=== PATIENT | male | born 1950 | race American Indian/Alaskan Native ===

== ENCOUNTER → 2019-12-14 14:42 | Outpatient (BNVA) | payer MEDICARE, SELFPAY | PROVIDERS: Family Provider Nurse Practitioner; PCP Nurse Practitioner; Visit Provider Nurse Practitioner Family | DX: R33.9 Retention of urine, unspecified (principal); R30.0 Dysuria; R31.0 Gross hematuria | CPT/HCPCS: 81001 ==

== ENCOUNTER → 2019-12-25 15:16 | Outpatient (BNVA) | payer MEDICARE, SELFPAY | PROVIDERS: Family Provider Nurse Practitioner; PCP Nurse Practitioner; Visit Provider Family Medicine | DX: E11.9 Type 2 diabetes mellitus without complications (principal); E78.00 Pure hypercholesterolemia, unspecified; N40.1 Benign prostatic hyperplasia with lower urinary tract symptoms; N13.8 Other obstructive and reflux uropathy; E11.649 Type 2 diabetes mellitus with hypoglycemia without coma; K21.9 Gastro-esophageal reflux disease without esophagitis; J41.0 Simple chronic bronchitis; Z68.27 Body mass index [BMI] 27.0-27.9, adult; F17.211 Nicotine dependence, cigarettes, in remission; E11.42 Type 2 diabetes mellitus with diabetic polyneuropathy | CPT/HCPCS: 80053; 80061; 83036 ==

== ENCOUNTER → 2019-12-28 12:47 | Outpatient (BNVA) | payer MEDICARE, SELFPAY | PROVIDERS: Family Provider Nurse Practitioner; PCP Nurse Practitioner; Visit Provider Family Medicine | DX: J41.0 Simple chronic bronchitis (principal) | CPT/HCPCS: 80048 ==

== ENCOUNTER 2020-02-08 12:28 | Outpatient (CLI) | payer MEDICARE, SELFPAY ==
--- NOTE | 2020-02-08 12:40 | CT_ITS ---
WS: [id number] LDCT LUNG CANCER SCREENING HISTORY: HX OF TOBACCO USE TECHNIQUE: Axial imaging performed from the apices to 1 cm below the costophrenic angles. Coronal and sagittal reformats are submitted with axial MIP series. All CT scans at [facility] use at least one of these dose optimization techniques: automated exposure control; mA and/or kV adjustment per patient size (includes targeted exams where dose is matched to clinical indication); or iterativ e reconstruction. DLP: 50.34 mGy.cm DIvol: 1.51 mGy COMPARISON: None available. Diagnostic quality: Satisfactory Lung Nodules: 4 mm solid nodule LEFT lower lobe adjacent to the diaphragm, image 170 of series 3. No additional nodules are identified. No groundglass attenuation or endobronchial lesions. Lungs: Emphysema. Heart: Normal size heart. Other findings: Mild atherosclerosis aorta. Mild coronary artery atherosclerosis. CT/CT lung screening [id number] IMPRESSION: LUNG-RADS: 2-Benign Appearance or Behavior FOLLOW UP: 12 Month: Continue annual screening with LDCT OTHER FINDINGS (S MODIFIER): None.
== END 2020-02-08 12:29 | disposition home or self-care (01) ==
LOC: CT 12:31
PROVIDERS: PCP Family Medicine; Visit Provider Internal Medicine Critical Care Medicine
DX: Z12.2 Encounter for screening for malignant neoplasm of respiratory organs (principal); Z87.891 Personal history of nicotine dependence; I70.0 Atherosclerosis of aorta; I25.10 Atherosclerotic heart disease of native coronary artery without angina pectoris
CPT/HCPCS: G0297

== ENCOUNTER → 2020-02-19 14:46 | Outpatient (BNVA) | payer MEDICARE, SELFPAY | PROVIDERS: Family Provider Nurse Practitioner; PCP Orthopaedic Surgery; Visit Provider Internal Medicine Critical Care Medicine | DX: Z20.828 Contact with and (suspected) exposure to other viral communicable diseases (principal) | CPT/HCPCS: 87635 ==

== ENCOUNTER 2020-02-21 12:06 | Outpatient (CLI) | payer MEDICARE, SELFPAY ==
--- NOTE | 2020-02-21 12:45 | USCV_ITS ---
Kali Castro Age: 69 Gender: M : 1950 Exam Date: 02/21/2020 12:59 Ordering Phys: Flora Stearns MD Technologist: Krystal Cobb Exam Location: [facility] Indication: SOB BP: / HR: 76 Rhythm: Sinus Technical Quality: Adequate MEASUREMENTS (Male / Female) Normal Values 2D ECHO LV Diastolic Diameter PLAX 4.6 cm 4.2 - 5.9 / 3.9 - 5.3 cm LV Systolic Diameter PLAX 3.3 cm IVS Diastolic Thickness 0.9 cm 0.6 - 1.0 / 0.6 - 0.9 cm IVS Systolic Thickness 1.4 cm LVPW Diastolic Thickness 1.0 cm 0.6 - 1.0 / 0.6 - 0.9 cm LVPW Systolic Thickness 1.7 cm LVOT Diameter 2.0 cm LV Ejection Fraction 2D Teich 56.8 % LV Ejection Fraction MOD 2C 73.2 % LV Ejection Fraction 2C AL 72.1 % LA Diameter 2.5 cm LA Width 3.0 cm LA Height 4.9 cm RA Width 3.7 cm RA Height 3.8 cm M-MODE LV Diastolic Diameter MM 5.0 cm 4.2 - 5.9 / 3.9 - 5.3 cm LV Systolic Diameter MM 3.5 cm LV Ejection Fraction MM Teich 57.0 % IVS Diastolic Thickness MM 0.6 cm 0.6 - 1.0 / 0.6 - 0.9 cm IVS Systolic Thickness MM 0.9 cm LVPW Diastolic Thickness MM 0.9 cm 0.6 - 1.0 / 0.6 - 0.9 cm LVPW Systolic Thickness MM 1.4 cm Aortic Annulus Diameter 2.9 cm LA Ao Ratio MM 0.8 MV E Point Septal Separation 1.3 cm DOPPLER AV Peak Velocity 126.0 cm/s LVOT Peak Velocity 85.0 cm/s AV Area Cont Eq vti 2.5 cm squared AV Area Cont Eq pk 2.2 cm squared MV Peak Velocity 85.0 cm/s MV Area PHT 4.9 cm squared Mitral E to A Ratio 0.9 MV E' Velocity 39.0 cm/s Mitral E to MV E' Ratio 10.9 Mitral E to LV E' Lateral Ratio 9.6 Mitral E to LV E' Septal Ratio 12.9 TR Peak Velocity 55.3 cm/s TR Peak Gradient 1.2 mmHg Right Atrial Pressure 3.0 mmHg Pulmonary Artery Systolic Pressu 4.2 mmHg PV Peak Velocity 144.7 cm/s RV Acceleration Time 0.1 s FINDINGS Left Ventricle Normal left ventricular size, systolic function and wall thickness, with no regional wall motion abnormalities. LVEF is 55 to 60%. Normal left ventricular wall thickness. Grade 1 diastolic dysfunction is noted. Filling pressures are normal. Right Ventricle The right ventricle is normal in size and function. Right Atrium The right atrium is normal in size. Left Atrium The left atrium is normal in size. Mitral Valve Structurally normal mitral valve without significant stenosis or prolapse. There is no mitral regurgitation. Aortic Valve Structurally normal aortic valve without significant sclerosis or stenosis. There is no aortic regurgitation. Tricuspid Valve Structurally normal tricuspid valve without significant stenosis or regurgitation. Insufficient TR jet to calculate RVSP. RA pressure is normal. Pulmonic Valve Structurally normal pulmonic valve without significant stenosis. There is no pulmonic regurgitation. Pericardium Normal pericardium without effusion. Aorta Normal ascending aorta dimension. CONCLUSIONS LV systolic function is normal with EF of 55 to 60%. Grade 1 diastolic dysfunction is noted. No significant valvular heart disease is noted. No comparison studies are available. Miah Armijo MD (Electronically Signed) Final Date: 04 March 2020 10:35 S
--- NOTE | 2020-02-21 14:23 | PFTS_ITS ---
Date of Study:02/21/20 Date of Dictation: MECHANICS: Forced vital capacity (FVC) is normal. Forced expiratory volume in one second (FEV1) is normal. FEV1/FVC is normal. FLOW VOLUME LOOP: Normal. LUNG VOLUMES: Total lung capacity (TLC) is normal. Residual volume (RV) is normal. DIFFUSING CAPACITY FOR CARBON MONOXIDE: Normal. INTERPRETATION: The pulmonary function tests are normal. Lung volumes are normal. Gas exchange (DLCO) is . MTDD
== END 2020-02-21 12:07 | disposition home or self-care (01) ==
LOC: RAD 12:07
PROVIDERS: Family Provider Nurse Practitioner; PCP Orthopaedic Surgery; Visit Provider Internal Medicine Critical Care Medicine
DX: R06.02 Shortness of breath (principal)
CPT/HCPCS: 93306; 94010; 94726; 94729

== ENCOUNTER → 2020-05-16 12:53 | Outpatient (BNVA) | payer MEDICARE, SELFPAY | PROVIDERS: Family Provider Nurse Practitioner; PCP Orthopaedic Surgery; Visit Provider Family Medicine | DX: K52.9 Noninfective gastroenteritis and colitis, unspecified (principal) | CPT/HCPCS: 80053; 85025 ==

== ENCOUNTER → 2020-06-06 14:26 | Outpatient (BNVA) | payer MEDICARE, SELFPAY | PROVIDERS: Family Provider Nurse Practitioner; PCP Orthopaedic Surgery; Visit Provider Surgery | DX: Z11.59 Encounter for screening for other viral diseases (principal) | CPT/HCPCS: 87635 ==

== ENCOUNTER 2020-06-11 07:47 | Day surgery (SDC) | payer MEDICARE, SELFPAY ==
[2020-06-07 12:59] VITALS: BMI 27.3
[2020-06-11 08:05] VITALS: BP 122/75; PULSE 82; RESP 16; TEMP 36.1; O2SAT 100
--- NOTE | 2020-06-11 08:25 | ANES.PREANE2 ---
Pre-Anesthetic Assessment Pre-Anesthetic Assessment: Height/Weight: Height 1.73 m Weight 81.647 kg Temp Pulse Resp BP Pulse Ox 97 F L 82 16 122/75 100 06/11/20 08:05 06/11/20 08:05 06/11/20 08:05 06/11/20 08:05 06/11/20 08:05 Preop Diagnosis: diarrhea Proposed Procedure: Operation Date: 06/11/20 09:00 Proposed Procedures p Colonoscopy 93071 K52.9(Not Applicable) - Donavon Bedoya MD Familial anesthetic complications: None Was Beta Summer taken within 24 hours: N/A Last intake: Intake Last Liquid Date 06/09/20 Last Liquid Time 23:00 Last Solid Date 06/09/20 Last Solid Time 17:00 Social: Social History: No alcohol and No tobacco Exam: Pre-Anes Outpt Exam: alert, oriented x 3, clear to auscultation bilaterally and regular rate & rhythm Airway: Cervical ROM: WNL MP: 3 Dentition: False GI: GI: GERD Metabolic: Metabolic: DM and Hyperlipidemia Neuropsych: Comments: parkinson's disease _took cardidopa/levodopa this morning Anesthetic Plan: ASA status: 2 Anesthesia: MAC Risk of > 500 ml blood loss (7ml/kg in children): No PFSH Anesthesia PFSH: Medical History (Updated 05/21/20 @ 20:51 by Donavon Bedoya MD) BPH with obstruction/lower urinary tract symptoms Chronic diarrhea Chronic GERD Hypercholesteremia Neuropathy Parkinson disease Type 2 diabetes mellitus Urinary retention Surgical History (Updated 05/21/20 @ 16:20 by Donavon Bedoya MD) Hx of cholecystectomy Status post colonoscopy Family History Mother Congestive heart failure Social History Smoking and tobacco status: former smoker Quit status (tobacco): has quit using tobacco Year quit tobacco: 2017 - PPD x 50 Years Second hand smoke exposure: No Alcohol intake: never Lives independently: Yes Household members: spouse Marital status: Current occupational status: retired History of recent travel: No Current gender identity: Male Data Anesthesia Cardiac Studies: No Data to Display
[2020-06-11 08:27] LABS: Glucose Point of Care 112 mg/dL (70-110)
[2020-06-11] MEDS: sodium chloride 0.9% 1,000 ML 30 ML IV (08:38)
--- NOTE | 2020-06-11 09:50 | W.PM.OPSUD ---
Surgery/Procedure H&P Update DATE OF PROCEDURE: June 11, 2020 DATE H&P PERFORMED: 05/21/20 H&P UPDATE INFORMATION: I have reviewed H&P completed within last 30 days, I have examined patient prior to procedure and No changes to prior documentation PREOP DIAGNOSIS: diarrhea PLANNED PROCEDURE: Operation Date: 06/11/20 09:00 Proposed Procedures p Colonoscopy 73545 K52.9(Not Applicable) - Donavon Bedoya MD
[2020-06-11 10:09] VITALS: BP 103/70; PULSE 75; RESP 16; TEMP 36.1; O2SAT 97
[2020-06-11 10:31] VITALS: BP 139/85; PULSE 76; RESP 16; O2SAT 100
--- NOTE | 2020-06-11 14:31 | ANE.PACU2 ---
Inpatient post-anesthesia follow up: Airway intact: Yes Vital signs: Temperature 97 F Pulse Rate 76 Respiratory Rate 16 Blood Pressure 139/85 Pulse Oximetry 100 Oxygen Delivery Me thod Nasal Cannula Oxygen Flow Rate 3 Fraction of Inspir ed Oxygen Hydration adequate: Yes Nausea and vomiting: No Pain level: 1 Mental status: Baseline
== END 2020-06-11 11:00 | disposition home or self-care (01) ==
PROVIDERS: PCP Orthopaedic Surgery; Visit Provider Surgery
PROC: 0DJD8ZZ Inspection of Lower Intestinal Tract, Via Natural or Artificial Opening Endoscopic (ICD-10-PCS; CPT 45378; principal; 2020-06-11 09:00)
DX: R19.7 Diarrhea, unspecified (principal); K21.9 Gastro-esophageal reflux disease without esophagitis; E11.9 Type 2 diabetes mellitus without complications; E78.5 Hyperlipidemia, unspecified; G20 Parkinson's disease; N40.1 Benign prostatic hyperplasia with lower urinary tract symptoms; N13.8 Other obstructive and reflux uropathy; Z87.891 Personal history of nicotine dependence
CPT/HCPCS: 12345; 36416; 45330; 82274; 82962; 83630; 87493; 87506; J2704; J7030

== ENCOUNTER → 2020-08-01 14:31 | Outpatient (BNVA) | payer MEDICARE, SELFPAY | PROVIDERS: PCP Orthopaedic Surgery; Visit Provider Surgery | DX: K52.9 Noninfective gastroenteritis and colitis, unspecified (principal); Z20.822 Contact with and (suspected) exposure to COVID-19 | CPT/HCPCS: 87635 ==

== ENCOUNTER 2020-08-13 06:42 | Day surgery (SDC) | payer MEDICARE, SELFPAY ==
[2020-08-09 14:15] VITALS: BMI 26.6
[2020-08-13 06:55] VITALS: BP 125/83; PULSE 77; RESP 16; TEMP 36.6; O2SAT 96
[2020-08-13] MEDS: sodium chloride 0.9% 1,000 ML 30 ML IV (07:25)
[2020-08-13 07:27] LABS: Glucose Point of Care 123 mg/dL (70-110)
--- NOTE | 2020-08-13 07:31 | ANES.PREANE2 ---
Pre-Anesthetic Assessment Pre-Anesthetic Assessment: Height/Weight: Height 1.73 m Weight 79.379 kg Temp Pulse Resp BP Pulse Ox 98 F 77 16 125/83 96 08/13/20 06:55 08/13/20 06:55 08/13/20 06:55 08/13/20 06:55 08/13/20 06:55 Preop Diagnosis: screening colonoscopy Proposed Procedure: Operation Date: 08/13/20 08:00 Proposed Procedures p Colonoscopy 89438 k52.9(Not Applicable) - Donavon Bedoya MD Was Beta Summer taken within 24 hours: N/A Was Clonidine taken within 24 hours: N/A Last intake: Intake Last Liquid Date 08/12/20 Last Liquid Time 23:30 Last Solid Date 08/11/20 Last Solid Time 18:00 Last Intake: 23:30 Social: Social History: No tobacco Pack years: 50 Comment: Quit 2016 Exam: Pre-Anes Outpt Exam: alert, oriented x 3, clear to auscultation bilaterally and regular rate & rhythm Airway: Submandibular: WNL Cervical ROM: WNL MP: 1 Additional comments: upper dentition History/ROS: No significant history except as noted Pulmonary: Pulmonary: None reported GI: GI: GERD (controlled) Metabolic: Metabolic: DM Neuropsych: Comments: parkinsons Anesthetic Plan: ASA status: 3 Anesthesia: Anesthesia Evaluation and MAC Risk of > 500 ml blood loss (7ml/kg in children): No Meds/Allergies Current Medications: Current Medications Generic Name Dose Route Start Last Admin Trade Name Freq PRN Reason Stop Dose Admin Sodium Chloride 1,000 mls @ 30 ml s/hr 08/13/20 07:00 08/13/20 07:25 Sodium Chloride 0.9% IV 08/14/20 06:59 30 mls/hr .Q24H HADLEY Administration PFSH Anesthesia PFSH: Medical History (Updated 07/10/20 @ 10:25 by Donavon Bedoya MD) BPH with obstruction/lower urinary tract symptoms C. difficile diarrhea Chronic diarrhea Chronic GERD Hypercholesteremia Neuropathy Parkinson disease Type 2 diabetes mellitus Urinary retention Surgical History Hx of cholecystectomy Hx of sigmoidoscopy (06/11/20) incomplete due to poor prep Status post colonoscopy Family History Mother Congestive heart failure Social History Smoking and tobacco status: former smoker Quit status (tobacco): has quit using tobacco Year quit tobacco: 2017 - PPD x 50 Years Second hand smoke exposure: No Alcohol intake: never Lives independently: Yes Household members: spouse Marital status: Current occupational status: retired History of recent travel: No Current gender identity: Male Data Anesthesia Other Labs: Laboratory Results - last 48 hr 08/13/20 07:20 POC Glucose 123 H Cardiac Studies: No Data to Display
--- NOTE | 2020-08-13 07:50 | W.PM.OPSFHP ---
Same Day Surgery H&P Indication for Procedure/HPI DATE OF PROCEDURE: August 13, 2020 CHIEF COMPLAINT/INDICATIONFOR SURGICAL PROCEDURE: history of c diff, screening PREOP DIAGNOSIS: screening colonoscopy PLANNED PROCEDRUE: Operation Date: 08/13/20 08:00 Proposed Procedures p Colonoscopy 32625 k52.9(Not Applicable) - Donavon Bedoya MD Medications/Allergies* Home Medications Medication Instructions Recorded Confirmed Type carbidopa 25 mg-levodopa 100 mg 1 tab PO 5XD 10/31/19 08/09/20 History tablet melatonin 5 mg capsule 5 mg PO QPM 10/31/19 08/09/20 History ropinirole 5 mg tablet 5 mg PO TID 10/31/19 08/09/20 History amantadine HCl 100 mg capsule 100 mg PO BID 05/16/20 08/09/20 History gabapentin 600 mg tablet 600 mg PO BID tab 05/16/20 08/09/20 History quetiapine 25 mg tablet 25 mg PO QPM 05/16/20 08/09/20 History finasteride 5 mg tablet 5 mg PO DAILY 07/09/20 08/09/20 History Allergies/Adverse Reactions Allergy/AdvReac Type Severity Reaction Status Date / Time No Known Allergies Allergy Verified 07/09/20 12:59 Current Medications: Generic Name Dose Route Start Last Admin Trade Name Freq PRN Reason Stop Dose Admin Sodium Chloride 1,000 mls @ 30 mls/hr 08/13/20 07:00 08/13/20 07:25 Sodium Chloride 0.9% IV 08/14/20 06:59 30 mls/hr .Q24H HADLEY Administration Pertinent History/Comorbid Conditions* Medical History (Updated 07/10/20 @ 10:25 by Donavon Bedoya MD) BPH with obstruction/lower urinary tract symptoms C. difficile diarrhea Chronic diarrhea Chronic GERD Hypercholesteremia Neuropathy Parkinson disease Type 2 diabetes mellitus Urinary retention Surgical History (Updated 06/11/20 @ 10:49 by Donavon Bedoya MD) Hx of cholecystectomy Hx of sigmoidoscopy (06/11/20) incomplete due to poor prep Status post colonoscopy Family History (Updated 10/27/19 @ 16:16 by ROBERT Felton) Congestive heart failure Mother Social History Smoking and tobacco status: former smoker Quit status (tobacco): has quit using tobacco Year quit tobacco: 2016 - PPD x 50 Years Second hand smoke exposure: No Alcohol intake: never Lives independently: Yes Household members: spouse Marital status: Current occupational status: retired History of recent travel: No Current gender identity: Male Pertinent Exam Findings alert, oriented x 3 and regular rate & rhythm Recommendations Surgery/Procedure today Coding Level of Care Code 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
[2020-08-13 08:29] VITALS: BP 93/70; PULSE 70; RESP 16; TEMP 36.1; O2SAT 96
[2020-08-13 08:44] VITALS: BP 143/74; PULSE 70; RESP 18; TEMP 36.5; O2SAT 99
--- NOTE | 2020-08-13 12:24 | ANE.PACU2 ---
Inpatient post-anesthesia follow up: Airway intact: Yes Vital signs: Temperature 97.7 F Pulse Rate 70 Respiratory Rate 18 Blood Pressure 143/74 Pulse Oximetry 99 Oxygen Delivery Me thod Room Air Oxygen Flow Rate 5 Fraction of Inspir ed Oxygen Hydration adequate: Yes Nausea and vomiting: No Pain level: 1 Mental status: Baseline
== END 2020-08-13 09:20 | disposition home or self-care (01) ==
PROVIDERS: PCP Orthopaedic Surgery; Visit Provider Surgery
PROC: 0DJD8ZZ Inspection of Lower Intestinal Tract, Via Natural or Artificial Opening Endoscopic (ICD-10-PCS; CPT 45378; principal; 2020-08-13 08:00)
DX: Z12.11 Encounter for screening for malignant neoplasm of colon (principal); K64.8 Other hemorrhoids; K57.30 Diverticulosis of large intestine without perforation or abscess without bleeding; N40.1 Benign prostatic hyperplasia with lower urinary tract symptoms; N13.8 Other obstructive and reflux uropathy; G20 Parkinson's disease; K21.9 Gastro-esophageal reflux disease without esophagitis; E11.9 Type 2 diabetes mellitus without complications; Z87.891 Personal history of nicotine dependence
CPT/HCPCS: 45378; 36416; 82962; 96360; 96361; J2704; J7030

== ENCOUNTER → 2020-11-27 16:19 | Outpatient (BNVA) | payer MEDICARE, SELFPAY | PROVIDERS: PCP Family Medicine; Visit Provider Urology | DX: N39.0 Urinary tract infection, site not specified (principal); Z86.19 Personal history of other infectious and parasitic diseases | CPT/HCPCS: 81003; 87077; 87086 ==

== ENCOUNTER → 2020-12-12 16:17 | Outpatient (BNVA) | payer MEDICARE, SELFPAY | PROVIDERS: PCP Family Medicine; Visit Provider Nurse Practitioner Family | DX: N39.0 Urinary tract infection, site not specified (principal) | CPT/HCPCS: 87077; 87086 ==

== ENCOUNTER → 2021-03-06 13:34 | Outpatient (BNVA) | payer MEDICARE, SELFPAY | PROVIDERS: PCP Family Medicine; Visit Provider Nurse Practitioner Family | DX: N39.0 Urinary tract infection, site not specified (principal) | CPT/HCPCS: 81003 ==

== ENCOUNTER → 2021-03-07 11:55 | Outpatient (BNVA) | payer MEDICARE, SELFPAY | PROVIDERS: PCP Family Medicine; Visit Provider Nurse Practitioner Family | DX: N39.0 Urinary tract infection, site not specified (principal) | CPT/HCPCS: 87086 ==

== ENCOUNTER 2021-06-26 10:56 | Emergency (ER) | payer MEDICARE, SELFPAY ==
[2021-06-26 11:01] VITALS: BP 193/66; PULSE 86; RESP 18; TEMP 36.6; O2SAT 96; BMI 25.8
--- NOTE | 2021-06-26 11:18 | W.ED.BACK ---
HPI - Back Pain/Injury General: Chief Complaint: Back Pain/Injury Stated Complaint: L BACK/LEG PAIN X 2 WKS Time Seen by Provider: 06/26/21 11:08 History of Present Illness: Patient presents to the ER via ambulance with complaints of worsening sciatica. Patient states he was placed on oxycodone by Dr. Hameed and he said it helped at first but the effectiveness has waned and his left leg is hurting again. Pain originally occurred after working the yard and with certain movement cause discomfort in his back he says it hurts to get out of a chair or sit down to roll over in bed. Pain radiates from his back down to about ankle area. Denies any other problems. Does have history of Parkinson's. Associated symptoms: Deny abdominal pain, chills, fever(s), nausea or vomiting Review of Systems Const: Denies: fever(s), chills or body aches Eyes: Denies: eye discomfort ENMT: Denies: throat pain Card: Denies: chest pain Resp: Denies: dyspnea GI: Denies: abdominal pain, nausea or vomiting Musc: Reports: back pain (Seen recently in Dr. Hameed's office and assessed and treated with oxycodone) Skin/Breast: Denies: rash Neuro: Denies: headache(s) Psych: Denies: depression or suicidal ideation PFS ED PFSH: Medical History BPH with obstruction/lower urinary tract symptoms C. difficile diarrhea Chronic diarrhea Chronic GERD Hypercholesteremia Neuropathy Parkinson disease Type 2 diabetes mellitus Urinary retention Surgical History Hx of cholecystectomy Hx of sigmoidoscopy (06/11/20) incomplete due to poor prep Status post colonoscopy (08/13/20) diverticulosis Family History Mother Congestive heart failure Social History Smoking and tobacco status: former smoker Quit status (tobacco): has quit using tobacco Year quit tobacco: 2017 - PPD x 50 Years Second hand smoke exposure: No Alcohol intake: never Lives independently: Yes Household members: spouse Marital status: Current occupational status: retired History of recent travel: No Current gender identity: Male Physical Exam Const: COMMON NORMALS: no acute distress, patient oriented x3 and alert HENMT: COMMON NORMALS: normocephalic HEAD & SCALP: normocephalic Eye: COMMON NORMALS: EOMs intact bilaterally Neck/C-Spine: COMMON NORMALS: no JVD Resp: COMMON NORMALS: normal respiratory effort and No use of accessory muscles Cardio: COMMON NORMALS: no JVD GI: INSPECTION: Yes normal to inspection Back/Pelvis: OTHER: Patient has marked tenderness along sciatic nerve across the thigh behind the calf left leg. Patient does have pain with standing. Patient does have pain in the buttock left side. Skin temperature, pulse are all normal. Extremity: COMMON NORMALS: normal to inspection and full ROM Neuro: COMMON NORMALS: patient oriented x3 SENSORIUM/ORIENTATION: Yes alert Psych: COMMON NORMALS: mental status grossly normal Skin: COMMON NORMALS: no rashes or lesions noted GENERAL SKIN EXAM: no rashes or lesions noted Course Vital Signs: Vital signs: Vital Signs Temperature 97.9 F 06/26/21 11:01 Pulse Rate 86 06/26/21 11:01 Respiratory Rate 18 06/26/21 11:01 Blood Pressure 193/66 06/26/21 11:01 Pulse Oximetry 96 06/26/21 11:01 MDM - Back Pain/Injury Medical Decision Making Left leg sciatica from lumbar stenosis. Patient to follow back up with Dr. Hameed for further imaging if steroids do not help. Reviewed Dr. Hameed's notes and he recommended corticosteroids if discomfort continued. Discharge Plan Discharge Patient Disposition: Home Clinical Impression: Sciatic leg pain Condition: Stable Prescriptions: New prednisone 20 mg tablet 20 mg PO DAILY Qty: 7 0RF Celebrex 100 mg capsule 200 mg PO BID Qty: 20 0RF No Action carbidopa-levodopa 25-100 mg tablet 1 tab PO 5XD 0RF melatonin 5 mg capsule 10 mg PO QPM 0RF ipratropium-albuterol 0.5 mg-3 mg(2.5 mg base)/3 mL solution for nebulization 3 ml inhalation Q4H PRN (Reason: wheezing) Qty: 180 6RF amantadine HCl 100 mg capsule 100 mg PO BID 0RF quetiapine 25 mg tablet 25 mg PO BID 0RF hydrocodone-acetaminophen 10-325 mg tablet 1 tab PO Q4H PRN (Reason: pain) 7 Days Qty: 35 0RF pravastatin 40 mg tablet 40 mg PO DAILY 0RF ropinirole 0.5 mg tablet 0.5 mg PO TID 0RF lactulose 10 gram/15 mL solution 15 ml PO BID PRN0RF Rx Instructions: For 7 days prior to Colonoscopy trazodone 50 mg tablet 50 mg PO DAILY 0RF finasteride 5 mg tablet See Rx Instructions .ROUTE .COMPLEX Qty: 90 3RF Dose Instruction: TAKE 1 TABLET DAILY Rx Instructions: TAKE 1 TABLET DAILY omeprazole 40 mg capsule,delayed release(DR/EC) 40 mg PO DAILY 90 Days Qty: 90 1RF gabapentin 600 mg tablet 600 mg PO BID 90 Days Qty: 180 1RF tamsulosin 0.4 mg capsule See Rx Instructions .ROUTE .COMPLEX Qty: 180 1RF Dose Instruction: TAKE 1 CAPSULE TWICE A DAY Rx Instructions: TAKE 1 CAPSULE TWICE A DAY Discharge Orders: Discharge ED (Routine); Ordered 06/26/21 Ordered By: Alex Valdez Referrals: Saadia Hameed MD [Primary Care Provider] - Discharge Diet: Usual diet Discharge Activity: Increase activity as tolerated Patient Instructions: Sciatica (ED), Lumbar Radiculopathy (ED) Activity Restrictions/Additional Instructions: Follow-up with medical provider as directed. Take medications as prescribed. Return to the ER or your medical provider if condition worsens. Please read and understand discharge instructions. If any questions ask please. Coding Level of Care Code ED Code Enforcement Inspector for Rashaad Fwd Exam Comprehensive
[2021-06-26] MEDS: methylPREDNISolone (DEPO) 80 MG/ML INJ 1 mL IM (11:23)
== END 2021-06-26 11:28 | disposition home or self-care (01) ==
PROVIDERS: Emergency Provider Nurse Practitioner Family; PCP Family Medicine
DX: M54.32 Sciatica, left side (principal); G20 Parkinson's disease; E11.40 Type 2 diabetes mellitus with diabetic neuropathy, unspecified; Z87.891 Personal history of nicotine dependence
CPT/HCPCS: 96372; 99283; 99291; 99292; J1040

== ENCOUNTER 2021-07-06 11:28 | Emergency (ER) | payer MEDICARE, SELFPAY ==
[2021-07-06 11:42] VITALS: BP 137/69; PULSE 82; RESP 14; TEMP 36.6; O2SAT 97; BMI 25.8
--- NOTE | 2021-07-06 12:35 | CTR_ITS ---
PROCEDURE INFORMATION: Exam: CT Pelvis Without Contrast; Skeletal Exam date and time: 07/06/2021 12:35 PM Age: 70 years old Clinical indication: Pelvic pain; Patient HX: C/O worsening chronic lbp into L pelvis/hip denies new injury TECHNIQUE: Imaging protocol: Computed tomography images of the pelvis without contrast. Exam focused on the skeletal structures. Radiation optimization: All CT scans at this facility use at least one of these dose optimization techniques: automated exposure control; mA and/or kV adjustment per patient size (includes targeted exams where dose is matched to clinical indication); or iterative reconstruction. COMPARISON: CT lumbar spine wo con* [id number] 07/06/2021 1:15 PM RADIATION DOSE METRICS: Total DLP (mGy-cm): 373.44 FINDINGS: Reproductive: The prostate is enlarged to a diameter of 6 cm. Aorta: The aorta and iliac arteries are calcified. No aneurysm. Bones/joints: Chronic degenerative changes are present in the lower lumbar spine with joint space narrowing, sclerosis and osteophytes. There is hypertrophy of the lower lumbar facet joints. There is mild degenerative joint space narrowing of the hips but otherwise the hip joints are unremarkable. No fracture, dislocation or other acute bone or joint abnormalities are seen. No destructive bony changes are present. Soft tissues: Unremarkable. CT/CT pelvis wo con [id number] IMPRESSION: 1. Chronic degenerative disease in the lower lumbar spine especially at L4-L5 and in the lumbar facet joints. 2. Minimal DJD in the hips. 3. No acute bony abnormality.
--- NOTE | 2021-07-06 12:35 | CTR_ITS ---
PROCEDURE INFORMATION: Exam: CT Lumbar Spine Without Contrast Exam date and time: 07/06/2021 12:35 PM Age: 70 years old Clinical indication: Low back pain; Patient HX: C/O worsening chronic lbp into L pelvis/hip denies new injury TECHNIQUE: Imaging protocol: Computed tomography images of the lumbar spine without contrast. Radiation optimization: All CT scans at this facility use at least one of these dose optimization techniques: automated exposure control; mA and/or kV adjustment per patient size (includes targeted exams where dose is matched to clinical indication); or iterative reconstruction. COMPARISON: No relevant prior studies available. RADIATION DOSE METRICS: Total DLP (mGy-cm): 2297.99 FINDINGS: Vertebrae: No acute fracture. Normal alignment. Chronic degenerative disc disease is present throughout the lumbar spine with disc space narrowing sclerosis and osteophytes. There is sclerosis narrowing and hypertrophy of the lumbar facet joints. L1-L2: There is disc protrusion/osteophyte complex with facet joint hypertrophy causing moderate spinal stenosis. There is no significant neural foraminal narrowing. L2-L3: There is disc protrusion/osteophyte complex with bilateral facet and ligamentous hypertrophy causing severe spinal stenosis and mild bilateral neural foraminal narrowing L3-L4: There is mild diffuse disc bulging and there is bilateral facet joint hypertrophy. There is mild spinal stenosis L4-L5: There is disc protrusion/osteophyte complex with prominent bilateral facet hypertrophy causing moderate spinal stenosis with mild neural foraminal narrowing L5-S1: There is mild disc protrusion. There is prominent degenerative disease in the facet joints. There is no significant spinal stenosis or neural foraminal narrowing. Soft tissues: Unremarkable. CT/CT lumbar spine wo con* [id number] IMPRESSION: Multilevel chronic degenerative disc disease and spinal stenosis. There is moderate spinal stenosis at L1-L2 and L4-L5 and severe spinal stenosis at the L2-L3 level.
[2021-07-06] MEDS: acetaminophen-codeine 300-30mg Tablet 1 TAB PO (12:46)
--- NOTE | 2021-07-06 12:53 | ED_ITS ---
HPI - General Adult General: Chief complaint: Back Pain/Injury Stated complaint: Pain moving around, hx of parkinsons Time Seen by Provider: 07/06/21 11:58 History of Present Illness: CC: Back pain HPI: [70]yo patient w/ hx of Parkinson's disease, chronic L-sided lumbar back pain/glute pain presenting to the ED with acutely worsening chronic pain x2 days. Pain started 2 days ago when the patient was sitting down. Endorsing taking prednisone and opiate medicine. Today, patients denies trauma to the back, fever/chill/IVDU, LE weakness, saddle anesthesia/bowel incontinence/bladder incontinence, or hx of recent weight loss or cancer. In addition, he does not have a history of kidney stone or urinary symptoms/hx of UTI. Onset: chronic, acutely worsening symptoms x 2 days Duration: 2 days Location: L glute pain with radiation to the L leg Severity: moderate Associated symptoms: Deny chest pain, dyspnea, nausea, rash, palpitations or vomiting Review of Systems Const: Denies: fever(s) or chills Eyes: Denies: change in vision ENMT: Denies: mouth pain Card: Denies: chest pain or palpitations Resp: Denies: dyspnea or non-productive cough GI: Denies: abdominal pain, nausea, vomiting or diarrhea : Denies: dysuria Musc: Reports: extremity pain (+L glute pain with numbness radiating to the L leg) Skin/Breast: Denies: rash or new lesions Neuro: Denies: weakness in extremities Psych: Reports: other (Normal mood) Jax/Lymph: Denies: easy bruising PFSH ED PFSH: Medical History BPH with obstruction/lower urinary tract symptoms C. difficile diarrhea Chronic diarrhea Chronic GERD Hypercholesteremia Neuropathy Parkinson disease Type 2 diabetes mellitus Urinary retention Surgical History Hx of cholecystectomy Hx of sigmoidoscopy (06/11/20) incomplete due to poor prep Status post colonoscopy (08/13/20) diverticulosis Family History Mother Congestive heart failure Social History Smoking and tobacco status: former smoker Quit status (tobacco): has quit using tobacco Year quit tobacco: 2017 - 1 PPD x 50 Years Second hand smoke exposure: No Alcohol intake: never Lives independently: Yes Household members: spouse Marital status: Current occupational status: retired History of recent travel: No Current gender identity: Male Physical Exam Const: COMMON NORMALS: alert HENMT: COMMON NORMALS: atraumatic HEAD & SCALP: atraumatic MOUTH: moist mucous membranes not abnormal Eye: COMMON NORMALS: EOMs intact bilaterally and conjunctivae normal CONJUNCTIVA: Yes conjunctivae normal Neck/C-Spine: COMMON NORMALS: full ROM and supple Resp: COMMON NORMALS: normal respiratory effort and clear to auscultation bilaterally AUSCULTATION: clear to auscultation bilaterally Cardio: COMMON NORMALS: regular rate RATE: regular rate GI: COMMON NORMALS: Soft to palpation and non-tender PALPATION: Yes Soft to palpation Back/Pelvis: OTHER: + Left [place] tenderness to palpation, no midline lumbar/thoracic/cervical tenderness to palpation, no saddle anesthesia Extremity: COMMON NORMALS: full ROM NARRATIVE EXTREMITY EXAM: 5/5 strengths b/l, no numbness in the legs b/l Neuro: SENSORIUM/ORIENTATION: Yes alert MOTOR EXAM: No Abnormal motor strength present and Other motor observations present (no focal motor deficits) Psych: COMMON NORMALS: speech normal SPEECH: Yes normal speech MOOD & AFFECT: Yes euthymic mood Procedures Nerve Block Nerve Block 1: Time out performed: Yes Local Anesthetic: lidocaine 1% and with epi Amount of anesthesia used (mL): 10 Side: left Nerve Blocks: other (glute) Patient Tolerated Procedure: well Complications: none Additional Comments: Risks of procedures in infection, nerve injury, hematoma, and bleeding discussed extensively with patient and alternatives of medical management discussed in detail. Patient elects for the procedure. Trigger point injections of the L glutes - two knot were appreciated on palpitation. Surface cleaned extensively with isopropyl alcohol and chlorohexadine, sterile 7-0 gloves used. 40mg of kenalog mixed 8 cc of lidocaine 1% w/ epi and were injected into the sites of pain and pressure. No complications from procedures. Pain improved post operatively. Course Vital Signs: Vital signs: Vital Signs Temperature 97.8 F 07/06/21 11:42 Pulse Rate 82 07/06/21 11:42 Respiratory Rate 14 07/06/21 11:42 Blood Pressure 137/69 02/27/22 11:42 Pulse Oximetry 97 07/06/21 11:42 MDM - General Adult Medical Decision Making [70]yo patient w/ hx of Parkinson' disease and chronic lumbar pain with radiation to the L-side presenting to the ED with acute worsening lumbar pain x 2 days, now has pain with ambulation. Neurological exam including LE exam intact. The Patient is able to bear weight on legs and ambulate with moderate pain. No red flags of IVDU/fever, hx or symptomatology of cancer w/ mets to the bones, neurological findings or bowel or bladder incontinence, or acute trauma/fracture of the vertebral columns. Intervention: Tylenol with codeine, trigger point injection [2:00pm] On reassessment, the patient reports the pain is significantly improved with medications. Patient is now able to ambulate in the ED with only mild pain. At the present time, I have discussed the importance for the patient to follow up with orthopedics [facility] and the patient agrees. No suspicion for acute cord compression at this time. Request for imaging today. Imaging studies are negative other than spinal stenosis noted. Patient has an appoint with orthopedics on Wednesday and instructed to follow-up. Patient received trigger point injection into the left [place] with significant improvement in pain. Please refer to the procedure note. Rx: Tylenol 500mg Q6Hrs, Lidocaine patch, and menthol cream PRN pain Disposition: Discharge. Patient is given SRP for any focal weakness, intractable pain, fever/chill, any signs of bowel or bladder incontinence. Patient is instructed to follow up with the orthopedics provider. I have provided an additional orthopedic referral for the patient should the patient need it. Patient verbalizes understanding and plans to do so in the next fews. Lab Data Radiology Impressions Lumbar Spine CT 07/06/21 12:35 IMPRESSION: Multilevel chronic degenerative disc disease and spinal stenosis. There is moderate spinal stenosis at L1-L2 and L4-L5 and severe spinal stenosis at the L2-L3 level. Pelvis CT 07/06/21 12:35 IMPRESSION: 1. Chronic degenerative disease in the lower lumbar spine especially at L4-L5 and in the lumbar facet joints. 2. Minimal DJD in the hips. 3. No acute bony abnormality. Imaging Data Other Imaging: Radiologist's impression: [address] [place] [address] CT Scan Report Signed Patient: Kali Castro Jr Unit #: [id number] : 1950 Age/Sex: 70 / M ADM Date: 07/06/21 Loc: ER Room/Bed: Attending Dr: Ordering Provider/Ordering MD: Tutu Kirkpatrick MD Date of Service: 07/06/21 Procedure(s): CT pelvis wo con [id number] Accession Number(s): [id number] Report Number: [id number] PROCEDURE INFORMATION: Exam: CT Pelvis Without Contrast; Skeletal Exam date and time: 07/06/2021 12:35 PM Age: 70 years old Clinical indication: Pelvic pain; Patient HX: C/O worsening chronic lbp into L pelvis/hip denies new injury TECHNIQUE: Imaging protocol: Computed tomography images of the pelvis without contrast. Exam focused on the skeletal structures. Radiation optimization: All CT scans at this facility use at least one of these dose optimization techniques: automated exposure control; mA and/or kV adjustment per patient size (includes targeted exams where dose is matched to clinical indication); or iterative reconstruction. COMPARISON: CT lumbar spine wo con* [id number] 07/06/2021 1:15 PM RADIATION DOSE METRICS: Total DLP (mGy-cm): 373.44 FINDINGS: Reproductive: The prostate is enlarged to a diameter of 6 cm. Aorta: The aorta and iliac arteries are calcified. No aneurysm. Bones/joints: Chronic degenerative changes are present in the lower lumbar spine with joint space narrowing, sclerosis and osteophytes. There is hypertrophy of the lower lumbar facet joints. There is mild degenerative joint space narrowing of the hips but otherwise the hip joints are unremarkable. No fracture, dislocation or other acute bone or joint abnormalities are seen. No destructive bony changes are present. Soft tissues: Unremarkable. CT/CT pelvis wo con [id number] IMPRESSION: 1. Chronic degenerative disease in the lower lumbar spine especially at L4-L5 and in the lumbar facet joints. 2. Minimal DJD in the hips. 3. No acute bony abnormality. ? Dictated By: Kedar Ellsworth Signed By: Kedar Ellsworth Signed Date/Time: 07/06/21 1350 DD/ [address] [address] [address] Scan Report Signed Patient: Kali Castro Jr Unit #: [id number] : 1950 Age/Sex: 70 / M ADM Date: 07/06/21 Loc: ER Room/Bed: Attending Dr: Ordering Provider/Ordering MD: Tutu Kirkpatrick MD Date of Service: 07/06/21 Procedure(s): CT lumbar spine wo con* [id number] Accession Number(s): [id number] Report Number: [id number] PROCEDURE INFORMATION: Exam: CT Lumbar Spine Without Contrast Exam date and time: 07/06/2021 12:35 PM Age: 70 years old Clinical indication: Low back pain; Patient HX: C/O worsening chronic lbp into L pelvis/hip denies new injury TECHNIQUE: Imaging protocol: Computed tomography images of the lumbar spine without contrast. Radiation optimization: All CT scans at this facility use at least one of these dose optimization techniques: automated exposure control; mA and/or kV adjustment per patient size (includes targeted exams where dose is matched to clinical indication); or iterative reconstruction. COMPARISON: No relevant prior studies available. RADIATION DOSE METRICS: Total DLP (mGy-cm): 2297.99 FINDINGS: Vertebrae: No acute fracture. Normal alignment. Chronic degenerative disc disease is present throughout the lumbar spine with disc space narrowing sclerosis and osteophytes. There is sclerosis narrowing and hypertrophy of the lumbar facet joints. L1-L2: There is disc protrusion/osteophyte complex with facet joint hypertrophy causing moderate spinal stenosis. There is no significant neural foraminal narrowing. L2-L3: There is disc protrusion/osteophyte complex with bilateral facet and ligamentous hypertrophy causing severe spinal stenosis and mild bilateral neural foraminal narrowing L3-L4: There is mild diffuse disc bulging and there is bilateral facet joint hypertrophy. There is mild spinal stenosis L4-L5: There is disc protrusion/osteophyte complex with prominent bilateral facet hypertrophy causing moderate spinal stenosis with mild neural foraminal narrowing L5-S1: There is mild disc protrusion. There is prominent degenerative disease in the facet joints. There is no significant spinal stenosis or neural foraminal narrowing. Soft tissues: Unremarkable. CT/CT lumbar spine wo con* [id number] IMPRESSION: Multilevel chronic degenerative disc disease and spinal stenosis. There is moderate spinal stenosis at L1-L2 and L4-L5 and severe spinal stenosis at the L2-L3 level. ? Dictated By: Kedar Ellsworth Signed By: Kedar Ellsworth Signed Date/Time: 07/06/21 1358 DD/ 1235 Discharge Plan Discharge Patient Disposition: Home Clinical Impression: Back pain, Gluteal pain Condition: Stable Prescriptions: New acetaminophen 500 mg tablet 500 mg PO Q6H PRN (Reason: pain) 5 Days Qty: 20 0RF lidocaine 5 % adhesive patch,medicated 1 patch topical DAILY PRN (Reason: pain) 30 Days Qty: 30 0RF Rx Instructions: leave on most painful area for up to 12 hrs Biofreeze (menthol) 5 % gel 1 ea topical BID PRN (Reason: pain) 10 Days Qty: 1 0RF Rx Instructions: please give only menthol based formulation without NSAIDS/aspirin No Action carbidopa-levodopa 25-100 mg tablet 1 tab PO 5XD 0RF melatonin 5 mg capsule 10 mg PO QPM 0RF ipratropium-albuterol 0.5 mg-3 mg(2.5 mg base)/3 mL solution for nebulization 3 ml inhalation Q4H PRN (Reason: wheezing) Qty: 180 6RF amantadine HCl 100 mg capsule 100 mg PO BID 0RF quetiapine 25 mg tablet 25 mg PO BID 0RF hydrocodone-acetaminophen 10-325 mg tablet 1 tab PO Q4H PRN (Reason: pain) 7 Days Qty: 35 0RF pravastatin 40 mg tablet 40 mg PO DAILY 0RF ropinirole 0.5 mg tablet 0.5 mg PO TID 0RF lactulose 10 gram/15 mL solution 15 ml PO BID PRN0RF Rx Instructions: For 7 days prior to Colonoscopy trazodone 50 mg tablet 50 mg PO DAILY 0RF finasteride 5 mg tablet See Rx Instructions .ROUTE .COMPLEX Qty: 90 3RF Dose Instruction: TAKE 1 TABLET DAILY Rx Instructions: TAKE 1 TABLET DAILY omeprazole 40 mg capsule,delayed release(DR/EC) 40 mg PO DAILY 90 Days Qty: 90 1RF gabapentin 600 mg tablet 600 mg PO BID 90 Days Qty: 180 1RF tamsulosin 0.4 mg capsule See Rx Instructions .ROUTE .COMPLEX Qty: 180 1RF Dose Instruction: TAKE 1 CAPSULE TWICE A DAY Rx Instructions: TAKE 1 CAPSULE TWICE A DAY prednisone 20 mg tablet 20 mg PO DAILY Qty: 7 0RF Celebrex 100 mg capsule 200 mg PO BID Qty: 20 0RF Discharge Orders: Discharge ED (Routine); Ordered 07/06/21 Ordered By: Tutu Kirkpatrick Referrals: Saadia Hameed MD [Primary Care Provider] - Discharge Diet: Advance as tolerated Discharge Activity: Increase activity as tolerated Patient Instructions: Back Pain (ED) Activity Restrictions/Additional Instructions: Please come back to the emergency room to have worsening back pain, if have any problem with urination and bowel movementm if you have any weakness in the legs, numbness in the legs, or if you have any new or concerning complaints. Please follow-up with orthopedics on Wednesday. 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
== END 2021-07-06 15:48 | disposition home or self-care (01) ==
PROVIDERS: Emergency Provider Emergency Medicine; PCP Family Medicine
DX: M54.9 Dorsalgia, unspecified (principal); M25.552 Pain in left hip; G20 Parkinson's disease; E11.9 Type 2 diabetes mellitus without complications; Z87.891 Personal history of nicotine dependence
CPT/HCPCS: 72131; 72192; 99283

== ENCOUNTER → 2021-07-08 08:24 | Outpatient (BNVA) | payer MEDICARE, SELFPAY | PROVIDERS: PCP Family Medicine; Visit Provider Orthopaedic Surgery | DX: M48.061 Spinal stenosis, lumbar region without neurogenic claudication (principal); M51.16 Intervertebral disc disorders with radiculopathy, lumbar region | CPT/HCPCS: 72110 ==

== ENCOUNTER → 2021-07-17 13:54 | Outpatient (BNVA) | payer MEDICARE, SELFPAY | PROVIDERS: PCP Family Medicine; Visit Provider Anesthesiology Pain Medicine | DX: M48.062 Spinal stenosis, lumbar region with neurogenic claudication (principal); M48.061 Spinal stenosis, lumbar region without neurogenic claudication; M51.16 Intervertebral disc disorders with radiculopathy, lumbar region; M47.816 Spondylosis without myelopathy or radiculopathy, lumbar region; M79.605 Pain in left leg; Z87.891 Personal history of nicotine dependence; Z79.891 Long term (current) use of opiate analgesic | CPT/HCPCS: 99205 ==

== ENCOUNTER → 2021-08-07 13:42 | Outpatient (BNVA) | payer MEDICARE, SELFPAY | PROVIDERS: PCP Family Medicine; Visit Provider Anesthesiology Pain Medicine | DX: M54.16 Radiculopathy, lumbar region (principal); M48.062 Spinal stenosis, lumbar region with neurogenic claudication; Z87.891 Personal history of nicotine dependence | CPT/HCPCS: 64483; 64484; J1100; J3490 ==

== ENCOUNTER 2021-08-15 17:58 | Emergency (ER) | payer MEDICARE, SELFPAY ==
[2021-08-15 18:48] VITALS: BP 187/91; PULSE 113; RESP 16; TEMP 36.8; O2SAT 96; BMI 25.0
--- NOTE | 2021-08-15 19:50 | CTR_ITS ---
PROCEDURE INFORMATION: Exam: CT Abdomen And Pelvis With Contrast Exam date and time: 08/15/2021 9:43 PM Age: 70 years old Clinical indication: Abdominal pain; Generalized; Prior surgery; Surgery date: 6+ months; Surgery type: Gb; Patient HX: C/O abd cramping, distention, diarrhea x 2 days; Additional info: Abd pain TECHNIQUE: Imaging protocol: Computed tomography of the abdomen and pelvis with contrast. Radiation optimization: All CT scans at this facility use at least one of these dose optimization techniques: automated exposure control; mA and/or kV adjustment per patient size (includes targeted exams where dose is matched to clinical indication); or iterative reconstruction. Contrast material: OMNI 300; Contrast volume: 95 ml; Contrast route: INTRAVENOUS (IV); COMPARISON: CT pelvis wo con [id number] 07/06/2021 1:18 PM RADIATION DOSE METRICS: Total DLP (mGy-cm): 1526.04 FINDINGS: Lungs: Left lower lobe 6.2 mm nodule incompletely visualized, consider nonemergent chest CT for further evaluation. Liver: Normal. No mass. Gallbladder and bile ducts: Cholecystectomy. Common bile duct prominent measuring 11 mm without obstructing lesion, likely related to prior cholecystectomy, MRCP could further evaluate this as clinically indicated. Pancreas: Normal. No ductal dilation. Spleen: Normal. No splenomegaly. Adrenal glands: Normal. No mass. Kidneys and ureters: Normal. No hydronephrosis. Stomach and bowel: Prominent fluid throughout the small bowel without dilation suggestive of an enteritis. Constipation. Appendix: No evidence of appendicitis. Intraperitoneal space: Unremarkable. No free air. No significant fluid collection. Vasculature: Unremarkable. No abdominal aortic aneurysm. Lymph nodes: Unremarkable. No enlarged lymph nodes. Urinary bladder: Unremarkable as visualized. Reproductive: Prostate gland enlarged. Bones/joints: Unremarkable. No acute fracture. Soft tissues: Unremarkable. CT/CT abdomen pelvis w con* [id number] IMPRESSION: 1. Prominent fluid throughout the small bowel without dilation suggestive of an enteritis. 2. Left lower lobe 6.2 mm nodule incompletely visualized, consider nonemergent chest CT for further evaluation. 3. Cholecystectomy. 4. Common bile duct prominent measuring 11 mm without obstructing lesion, likely related to prior cholecystectomy, MRCP could further evaluate this as clinically indicated. 5. Constipation. 6. Prostate gland enlarged.
--- NOTE | 2021-08-15 19:55 | W.ED.NAVMDI ---
HPI - Nausea/Vomiting/Diarrhea General: Chief complaint: Nausea/Vomiting/Diarrhea Stated complaint: severe diarrhea Time Seen by Provider: 08/15/21 19:38 Source: patient Mode of arrival: ambulatory Limitations: no limitations History of Present Illness: 70-year-old male has a history of Parkinson's states the last 2 days has been having severe diarrhea. He states that he has been just going constantly. He states before that he was actually constipated. He has had some abdominal distention he states and cramping. He denies any fever denies any vomiting denies any worsening improving factors. Associated symtoms: Denies chest pain, dysuria or headache(s) Review of Systems Const: Denies: fever(s), chills, body aches or change in appetite Eyes: Denies: blurry vision or eye discomfort ENMT: Denies: throat pain or dental pain Card: Denies: chest pain Resp: Denies: dyspnea GI: Reports: abdominal pain and diarrhea : Denies: dysuria Musc: Denies: neck pain or back pain Skin/Breast: Denies: rash Neuro: Denies: headache(s) Psych: Denies: depression Jax/Lymph: Denies: easy bruising All/Imm: Denies: urticaria PFSH ED PFSH: Medical History BPH with obstruction/lower urinary tract symptoms C. difficile diarrhea Chronic diarrhea Chronic GERD Hypercholesteremia Neuropathy Parkinson disease Type 2 diabetes mellitus Urinary retention Surgical History Hx of cholecystectomy Hx of sigmoidoscopy (06/11/20) incomplete due to poor prep Status post colonoscopy (08/13/20) diverticulosis Family History Mother Congestive heart failure Social History Smoking and tobacco status: former smoker Quit status (tobacco): has quit using tobacco Year quit tobacco: 2017 - PPD x 50 Years Second hand smoke exposure: No Alcohol intake: former Lives independently: Yes Household members: spouse Marital status: Current occupational status: retired History of recent travel: No Current gender identity: Male Physical Exam Const: COMMON NORMALS: no acute distress, patient oriented x3 and healthy appearing HENMT: COMMON NORMALS: normocephalic and atraumatic HEAD & SCALP: normocephalic and atraumatic Eye: COMMON NORMALS: Equal, round and reactive pupils present and EOMs intact bilaterally PUPIL: Yes Equal, round and reactive pupils present Neck/C-Spine: COMMON NORMALS: full ROM and supple Chest: COMMONS NORMALS: normal inspection of the chest and normal palpation of entire chest wall Resp: COMMON NORMALS: normal respiratory effort, No retractions, No use of accessory muscles and clear to auscultation bilaterally AUSCULTATION: clear to auscultation bilaterally Cardio: COMMON NORMALS: regular rate, regular rhythm and No murmurs present (Cardio) RATE: regular rate RHYTHM: regular rhythm GI: COMMON NORMALS: Normal to inspection, nondistended, normoactive bowel sounds present, Soft to palpation, non-tender and no masses PALPATION: Yes Soft to palpation Extremity: COMMON NORMALS: normal to inspection and full ROM Neuro: COMMON NORMALS: patient oriented x3, moves all extremities and no focal motor deficits Psych: COMMON NORMALS: mental status grossly normal, Normal thought process present and cooperative THOUGHT PROCESS: Normal thought process present Skin: COMMON NORMALS: no rashes or lesions noted and no wounds GENERAL SKIN EXAM: no rashes or lesions noted Course Vital Signs: Vital signs: Vital Signs Temperature 97.9 F 08/15/21 21:22 Pulse Rate 105 H 08/15/21 21:22 Respiratory Rate 16 08/15/21 21:22 Blood Pressure 132/83 08/15/21 21:22 Pulse Oximetry 96 08/15/21 21:22 MDM - Nausea/Vomiting/Diarrhea Medical Decision Making Patient presents here diarrhea was found to have Clostridium difficile. He has had C. difficile in the past. Patient feels improved here I did offer him admission he states he like to try at home treatment as he has done that before for his C. difficile. We will place him on vancomycin along with pain meds he is to follow-up his PCP and return if worsening he understands agrees to plan. Lab Data : 08/15/21 20:32 08/15/21 20:32 Radiology Impressions Abdomen/Pelvis CT 08/15/21 19:50 IMPRESSION: 1. Prominent fluid throughout the small bowel without dilation suggestive of an enteritis. 2. Left lower lobe 6.2 mm nodule incompletely visualized, consider nonemergent chest CT for further evaluation. 3. Cholecystectomy. 4. Common bile duct prominent measuring 11 mm without obstructing lesion, likely related to prior cholecystectomy, MRCP could further evaluate this as clinically indicated. 5. Constipation. 6. Prostate gland enlarged. Venous Duplex 08/15/21 22:41 IMPRESSION: No evidence of deep vein thrombosis. Laboratory Results WBC 9.0 10^3/uL (4.0-10.0) 08/15/21 20: RBC 5.22 10^6/uL (4.1-5.3) 08/15/21 20:32 Hgb 16.1 g/dL (11.7-16.6) 08/15/21: Hct 46.4 % (42.0-52.0) 08/15/21: MCV 88.9 fl (80-94) 08/15/21: MCH 30.8 pg (28.0-34.0) 08/15/21: MCHC 34.7 g/dL (30.0-36.0) 08/15/21: RDW 14.5 % (12.1-15.1) 08/15/21: Plt Count 225 10^3/cmm (130-400) 08/15/21: MPV 10.1 fL (7.4-10.4) 08/15/21 20: Neut % (Auto) 71.5 % 08/15/21 20: Lymph % (Auto) 19.4 % 08/15/21: [place] % (Auto) 8.3 % 08/15/21: Eos % (Auto) 0.2 % 08/15/21: Baso % (Auto) 0.4 % 08/15/21: Neut # (Auto) 6.40 10^3/uL (1.8-7.7) 08/15/21: Lymph # (Auto) 1.7 10^3/uL (0.8-4.8) 08/15/21 20:32 [place] # (Auto) 0.7 10^3/uL (0.2-0.9) 08/15/21: Eos # (Auto) 0.0 10^3/uL (0.0-0.8) 08/15/21 20:32 Baso # (Auto) 0.0 10^3/uL (0.0-0.1) 08/15/21 20:32 Nucleated RBC % (auto) 0 % 08/15/21 20:32 Nucleated RBCs # 0.0 /100WBC 08/15/21 20:32 Sodium 136 mmol/L (136-145) 08/15/21 20:32 Potassium 3.7 mmol/L (3.5-5.1) 08/15/21 20:32 Chloride 102 mmol/L (98-107) 08/15/21 20:32 Carbon Dioxide 24 mmol/L (22-29) 08/15/21 20:32 Anion Gap 13.7 (5-19) 08/15/21 20:32 BUN 17 mg/dL (8-23) 08/15/21 20:32 Creatinine 0.5 mg/dL (0.7-1.2) L 08/15/21 20:32 GFR Calculation Not Reportable 08/15/21 20:32 Glucose 128 mg/dL (65-115) H 08/15/21 20:32 Calculated Osmolality 285 mOsm/kg (285-295) 08/15/21 20:32 Calcium 9.2 mg/dL (8.5-10.5) 08/15/21 20:32 Total Bilirubin 0.5 mg/dL (0.15-1.2) 08/15/21 20:32 AST 52 U/L (0-40) H 08/15/21 20:32 ALT 63 U/L (0-41) H 08/15/21 20:32 Alkaline Phosphatase 208 IU/L (40-130) H 08/15/21 20:32 Total Protein 6.8 g/dL (6.6-8.7) 08/15/21 20:32 Albumin 4.4 g/dL (3.5-5.2) 08/15/21 20:32 Globulin 2.4 g/dL (1.3-4.6) 08/15/21 20:32 Lipase 10 U/L (13-60) L 08/15/21 20:32 Discharge Plan Discharge Patient Disposition: Home Clinical Impression: Clostridium difficile colitis Condition: Stable Prescriptions: New ondansetron 4 mg tablet,disintegrating 4 mg PO Q6H PRN (Reason: nausea and vomiting) Qty: 14 0RF Percocet 5-325 mg tablet 1 tab PO Q8H PRN (Reason: pain) Qty: 14 0RF vancomycin 125 mg capsule 125 mg PO QID 14 Days Qty: 56 0RF No Action carbidopa-levodopa 25-100 mg tablet 1 tab PO 5XD 0RF melatonin 5 mg capsule 10 mg PO QPM 0RF ipratropium-albuterol 0.5 mg-3 mg(2.5 mg base)/3 mL solution for nebulization 3 ml inhalation Q4H PRN (Reason: wheezing) Qty: 180 6RF amantadine HCl 100 mg capsule 100 mg PO BID 0RF quetiapine 25 mg tablet 25 mg PO BID 0RF bupivacaine (PF) 0.25 % (2.5 mg/mL) solution 2 ml Infiltration ONCE Qty: 1 0RF dexamethasone sodium phos (PF) 10 mg/mL solution 8 mg Infiltration ONCE Qty: 0.8 0RF ropinirole 0.5 mg tablet 0.5 mg PO TID 0RF trazodone 50 mg tablet 50 mg PO DAILY 0RF finasteride 5 mg tablet See Rx Instructions .ROUTE .COMPLEX Qty: 90 3RF Dose Instruction: TAKE 1 TABLET DAILY Rx Instructions: TAKE 1 TABLET DAILY gabapentin 600 mg tablet 600 mg PO BID 90 Days Qty: 180 1RF tamsulosin 0.4 mg capsule See Rx Instructions .ROUTE .COMPLEX Qty: 180 1RF Dose Instruction: TAKE 1 CAPSULE TWICE A DAY Rx Instructions: TAKE 1 CAPSULE TWICE A DAY acetaminophen-codeine 300-30 mg tablet 1 tab PO Q6H PRN (Reason: pain) 10 Days Qty: 40 0RF omeprazole 40 mg capsule,delayed release(DR/EC) See Rx Instructions .ROUTE .COMPLEX Qty: 90 3RF Dose Instruction: TAKE 1 CAPSULE DAILY Rx Instructions: TAKE 1 CAPSULE DAILY Discharge Orders: Discharge ED (Routine); Ordered 08/15/21 Ordered By: Mildred Tang Referrals: Saadia Hameed MD [Primary Care Provider] - 1-3 days Discharge Diet: Advance as tolerated Discharge Activity: Resume usual activity Patient Instructions: C. Diff (Clostridioides Difficile) Infection (ED), Opioid Safety Coding Level of Care Code ED Erp Project Manager for Chg Fwd Exam Comprehensive
[2021-08-15 20:41] LABS: Basophils % 0.4 %; Eosinophils % 0.2 %; Hematocrit 46.4 % (42.0-52.0); Hemoglobin 16.1 g/dL (11.7-16.6); Lymphocytes # 1.7 10^3/uL (0.8-4.8); Lymphocytes % 19.4 %; Mean Corpuscular HGB Conc 34.7 g/dL (30.0-36.0); Mean Corpuscular Hemoglobin 30.8 pg (28.0-34.0); Mean Corpuscular Volume 88.9 fl (80-94); Mean Platelet Volume 10.1 fL (7.4-10.4); Monocytes # 0.7 10^3/uL (0.2-0.9); Monocytes % 8.3 %; Neutrophils % 71.5 %; Nucleated Red Blood Cells % 0 %; Platelet Count 225 10^3/cmm (130-400); Red Blood Count 5.22 10^6/uL (4.1-5.3); Red Cell Distribution Width 14.5 % (12.1-15.1)
[2021-08-15 21:02] LABS: Alanine Aminotransferase 63 U/L (0-41); Albumin Level 4.4 g/dL (3.5-5.2); Alkaline Phosphatase 208 IU/L (40-130); Anion Gap 13.7 (5-19); Aspartate Amino Transferase 52 U/L (0-40); Blood Urea Nitrogen 17 mg/dL (8-23); Calcium 9.2 mg/dL (8.5-10.5); Carbon Dioxide 24 mmol/L (22-29); Chloride 102 mmol/L (98-107); Globulin 2.4 g/dL (1.3-4.6); Glucose 128 mg/dL (65-115); Lipase 10 U/L (13-60); Osmolality Calculated 285 mOsm/kg (285-295); Potassium 3.7 mmol/L (3.5-5.1); Sodium 136 mmol/L (136-145); Total Bilirubin 0.5 mg/dL (0.15-1.2); Total Protein 6.8 g/dL (6.6-8.7)
[2021-08-15] MEDS: sodium chloride 0.9% 1,000 ML 999 ML IV (21:17)
[2021-08-15] MEDS: diphenoxylate/atropine Tablet 1 TAB PO (21:17)
[2021-08-15 21:22] VITALS: BP 132/83; PULSE 105; RESP 16; TEMP 36.6; O2SAT 96
[2021-08-15 21:30] VITALS: BP 132/83; PULSE 99; RESP 17; O2SAT 96
[2021-08-15] MEDS: iohexol 300 mg/mL 100 mL Btl IV (21:41)
[2021-08-15 22:30] VITALS: PULSE 109; RESP 21; O2SAT 98
--- NOTE | 2021-08-15 22:41 | USR_ITS ---
PROCEDURE INFORMATION: Exam: US Duplex Left Lower Extremity Veins, Limited Exam date and time: 08/15/2021 11:02 PM Age: 70 years old Clinical indication: Swelling (edema) of limb; Lower extremity, left TECHNIQUE: Imaging protocol: Real-time Duplex ultrasound of the Left Lower Extremity with 2-D cormier scale, color Doppler flow and spectral waveform analysis with image documentation. Limited exam focused on the left lower extremity veins. COMPARISON: CT abdomen pelvis w con* [id number] 08/15/2021 9:43 PM FINDINGS: Left deep veins: Unremarkable. The common femoral, femoral, proximal profunda femoral and popliteal veins are patent without thrombus. Normal Doppler waveforms. Normal compressibility and/or augmentation response. Left superficial veins: Unremarkable. Saphenofemoral junction is patent without thrombus. Soft tissues: Unremarkable. US/CV venous duplex [facility] [id number] IMPRESSION: No evidence of deep vein thrombosis.
[2021-08-15 23:00] VITALS: PULSE 105; RESP 20; O2SAT 98
--- NOTE | 2021-08-15 23:26 | PC.NURSE ---
Critical lab: C-diff positive, reported to Dr. Tang.
[2021-08-15 23:30] VITALS: PULSE 97; RESP 16; O2SAT 95
[2021-08-16] VITALS: PULSE 106; RESP 17; O2SAT 94
[2021-08-16 00:14] VITALS: BP 115/75; PULSE 106; RESP 15; TEMP 36.6; O2SAT 94
== END 2021-08-16 00:30 | disposition home or self-care (01) ==
PROVIDERS: Emergency Provider Emergency Medicine; PCP Family Medicine
DX: A04.72 Enterocolitis due to Clostridium difficile, not specified as recurrent (principal); G20 Parkinson's disease; M79.89 Other specified soft tissue disorders
CPT/HCPCS: 74177; 80053; 83690; 85025; 87493; 87506; 93971; 96360; 99284; J7030; Q9967

== ENCOUNTER → 2021-08-20 13:04 | Outpatient (BNVA) | payer MEDICARE, SELFPAY | PROVIDERS: PCP Family Medicine; Visit Provider Anesthesiology Pain Medicine | DX: M48.062 Spinal stenosis, lumbar region with neurogenic claudication (principal); M48.061 Spinal stenosis, lumbar region without neurogenic claudication; M51.16 Intervertebral disc disorders with radiculopathy, lumbar region; M47.816 Spondylosis without myelopathy or radiculopathy, lumbar region; M79.605 Pain in left leg; Z79.891 Long term (current) use of opiate analgesic; Z87.891 Personal history of nicotine dependence | CPT/HCPCS: 99213 ==

== ENCOUNTER 2021-08-21 09:00 | Emergency (ER) | payer MEDICARE, SELFPAY ==
[2021-08-21 09:26] VITALS: BP 123/80; PULSE 95; RESP 18; TEMP 36.4; O2SAT 95; BMI 25.0
[2021-08-21 09:49] VITALS: BP 166/100; PULSE 95; RESP 16; O2SAT 97
--- NOTE | 2021-08-21 10:18 | CT_ITS ---
WS: [id number] CT ABDOMEN AND PELVIS WITH CONTRAST HISTORY: Abdominal pain with nausea and vomiting. C. difficile. TECHNIQUE: Imaging performed of the abdomen and pelvis with IV contrast. Single phase imaging of the abdomen. Coronal and sagittal reformats are submitted. All CT scans at [facility] use at [address] one of these dose optimization techniques: automated exposure control; mA and/or kV adjustment per patient size (includes targeted exams where dose is matched to clinical indication); or iterative re construction. IV CONTRAST: Omnipaque 300; 95 mL IV. Oral contrast: No DLP: 1610.91 mGy.cm COMPARISON: 08/15/2021 Lower thorax: No change in a 4 mm nodule at the LEFT lung base. Stable since 02/08/2020. Heart is norm al size. Small hiatal hernia. Liver/biliary system: Normal size liver. There is moderate intrahepatic duct dilatation. Central and mid biliary ducts are dilated. No mass identified. Common bowel duct is dilated up to 11 mm. No dista l enhancing mass identified. Gallbladder: Status post cholecystectomy. Pancreas: Normal size pancreas and pancreatic duct. No adjacent inflammation. Spleen: Normal size spleen. No mass or infarct. Adrenal glands: Normal RIGHT adrenal gland. 9 mm nodule associated with the LEFT adrenal gland is sta ble. Right kidney: Normal. Left kidney: Normal. Aorta: Mild atherosclerosis with no aneurysm. Mesenteric arteries are normally enhancing. There is a small amount of calcified plaque near the origins. No intraluminal thrombus. IV calcification continu es into the iliac arteries. The RIGHT internal iliac artery is probably occluded. Lymphadenopathy: None. Free fluid: There is a very small amount of fluid and presacral soft tissue thickening that was not p resent on the most recent study. GI tract: Nondistended stomach. No small bowel obstruction. There is extensive fecal material through out the entire colon. Marked distention of the rectum. No pneumatosis. There is a region of the wall of the colon but cannot confirm pneumatosis. No free air is identified. The appendix is normal and ai r-filled. Very mild circumferential thickening and enhancement of the distal rectal mucosa. Abdominal wall: Unremarkable abdominal wall. No hernia. Pelvis: Marked distention of the urinary bladder. Bladder extends over a length of 12.5 cm. Prostate gland is enlarged encroaching into the bladder. Prostate contacts the base of the urinary bladder. Th e prostate measures 7.1 x 5.1 x 6.5 cm with calcifications. Bones: Increase in the lumbar lordosis. L5 anterolisthesis by 5 mm. Facet joint arthritis is moderate throughout the lumbar spine. CT/CT abdomen pelvis w con* [id number] IMPRESSION: 1. Marked progressive constipation and obstipation. 2. Cannot confirm pneumatosis and no free air identified. 3. New mild circumferential mucosal thickening of the rectum with presacral in flammatory changes and a tiny amount of free fluid. These findings have progres sed since 08/15/2021 suggesting inflammatory colitis/proctitis. 4. Marked distention of the urinary bladder. Probably due to outlet obstructio n as the prostate gland is significantly enlarged. 5. Prior cholecystectomy with bile duct dilatation. Similar to the prior study . No obstructing stone or mass identified.
[2021-08-21 11:16] LABS: Basophils # 0.1 10^3/uL (0.0-0.1); Basophils % 0.4 %; Eosinophils % 0.2 %; Hematocrit 44.2 % (42.0-52.0); Hemoglobin 15.2 g/dL (11.7-16.6); Lymphocytes # 2.4 10^3/uL (0.8-4.8); Mean Corpuscular HGB Conc 34.4 g/dL (30.0-36.0); Mean Corpuscular Hemoglobin 31.1 pg (28.0-34.0); Mean Corpuscular Volume 90.4 fl (80-94); Mean Platelet Volume 9.7 fL (7.4-10.4); Monocytes # 0.5 10^3/uL (0.2-0.9); Monocytes % 4.2 %; Neutrophils # 9.17 10^3/uL (1.8-7.7); Nucleated Red Blood Cells % 0 %; Platelet Count 288 10^3/cmm (130-400); Red Blood Count 4.89 10^6/uL (4.1-5.3); Red Cell Distribution Width 15.1 % (12.1-15.1); White Blood Count 12.2 10^3/uL (4.0-10.0)
[2021-08-21 11:45] LABS: Lactic Sepsis W/Reflex 0.9 mmol/L (0.5-2.2)
[2021-08-21 11:55] LABS: Alanine Aminotransferase 10 U/L (0-41); Albumin Level 4.1 g/dL (3.5-5.2); Alkaline Phosphatase 163 IU/L (40-130); Anion Gap 15.7 (5-19); Aspartate Amino Transferase 28 U/L (0-40); Blood Urea Nitrogen 15 mg/dL (8-23); Calcium 9.6 mg/dL (8.5-10.5); Carbon Dioxide 23 mmol/L (22-29); Chloride 106 mmol/L (98-107); Globulin 2.3 g/dL (1.3-4.6); Glucose 155 mg/dL (65-115); Lipase 14 U/L (13-60); Osmolality Calculated 296 mOsm/kg (285-295); Potassium 3.7 mmol/L (3.5-5.1); Sodium 141 mmol/L (136-145); Total Bilirubin 0.6 mg/dL (0.15-1.2); Total Protein 6.4 g/dL (6.6-8.7)
[2021-08-21] MEDS: sodium chloride 0.9% 1,000 ML 999 ML IV (11:56)
[2021-08-21 12:12] VITALS: RESP 20; O2SAT 99
[2021-08-21] MEDS: ondansetron 2 mg/ML SDV 2 mL 4 MG IVP (12:12)
[2021-08-21] MEDS: morphine 4 mg/mL SDV 1 mL IVP ×2 (12:12→14:51)
[2021-08-21 12:13] LABS: Specific Gravity, Urine 1.025 (1.005-1.030); Urine Appearance Cloudy (CLEAR); Urine Color Yellow (Yellow); pH Urine 5 (5-7)
[2021-08-21 12:14] LABS: Add Urine Microscopic? YES; Bilirubin Urine Neg (Negative); Blood Urine Neg (Negative); Glucose Urine UA Norm (Normal); Ketones Urine Negative (Negative); Leukocyte Esterase Urine 2+ (Negative); Nitrate Urine Negative (Negative); Protein Urine Trace (Negative); Urobilinogen Urine 1 mg/dL (Negative)
[2021-08-21 12:17] LABS: RBC Urine 0-4 /hpf (0-2); Squamous Epithelial Cell Urine 0-4 /hpf (0-5); WBC Urine 15-25 /hpf (0-5)
[2021-08-21 12:18] LABS: Amorphous Sediment Urine TRACE /hpf; Bacteria Urine 3+ /hpf; Calcium Oxalate Crystals Urine 0-4 /hpf; Mucus Urine N /hpf; Other Crystals Urine N /hpf; Other Sediment, Urine N; Renal Epithelial Cells Urine N /hpf; Uric Acid Crystals Urine N /hpf
[2021-08-21 12:19] LABS: Add Urine Culture? Yes
--- NOTE | 2021-08-21 12:31 | ED_ITS ---
HPI - Nausea/Vomiting/Diarrhea General: Chief complaint: Nausea/Vomiting/Diarrhea Stated complaint: cdif Time Seen by Provider: 08/21/21 09:35 Source: patient Mode of arrival: ambulatory Limitations: no limitations History of Present Illness: 70-year-old male who was seen on August 15 at that time he was diagnosed with C. difficile and advised admission but he declined he was discharged home on vancomycin he continues to have frequent diarrhea and they are having difficult time caring for him. He has not had any fever sweats chills denies any bloody diarrhea. He does have some moderate abdominal c ramping and discomfort. He is having multiple mucousy stools per day MD elicited complaint: nausea and vomiting Pertinent past history: other (Recently seen for C. difficile) Onset (ago): week(s) Description of diarrhea: mucus Associated nausea: Yes Associated abdominal pain: Yes Location of pain: Diffuse Pain consistency: intermittent Severity: moderate Quality: cramping Exacerbating factors: bowel movement Relieving factors: none Associated symtoms: Reports bloating, anorexia, nausea and weakness; Denies altered mental status, anxiety, change in vision, chest pain, cough, diaphoresis, decreased urine output, dizziness, dysuria, epistaxis, fatigue, fecal incontinence, fevers/chills, headache(s), malaise, myalgias, numbness, pa lpitations, rash, short of breath, syncope, tenesmus, tinnitus or other Review of Systems Const: Denies: fatigue, malaise or diaphoresis Eyes: Denies: change in vision ENMT: Denies: tinnitus or epistaxis Card: Denies: chest pain, palpitations or syncope Resp: Denies: dyspnea, productive cough or non-productive cough GI: Reports: nausea and bloating; Denies: fecal incontinence : Denies: dysuria Skin/Breast: Denies: rash or pruritus Neuro: Denies: headache(s) or dizziness Psych: Denies: anxiety PFSH ED PFSH: Medical History BPH with obstruction/lower urinary tract symptoms C. difficile diarrhea Chronic diarrhea Chronic GERD Hypercholesteremia Neuropathy Parkinson disease Type 2 diabetes mellitus Urinary retention Surgical History Hx of cholecystectomy Hx of sigmoidoscopy (06/11/20) incomplete due to poor prep Status post colonoscopy (08/13/20) diverticulosis Family History Mother Congestive heart failure Social History Smoking and tobacco status: former smoker Quit status (tobacco): has quit using tobacco Year quit tobacco: 2017 - PPD x 50 Years Second hand smoke exposure: No Alcohol intake: former Lives independently: Yes Household members: spouse Marital status: Current occupational status: retired History of recent travel: No Current gender identity: Male Physical Exam Const: EXAM LIMITATIONS: no altered mental status GENERAL APPEARANCE: cooperative ORIENTATION/CONSCIOUSNESS: Yes awake, Yes oriented to person, Yes oriented to place and Yes oriented to time HENMT: COMMON NORMALS: normocephalic, atraumatic and hearing grossly normal bilaterally HEAD & SCALP: normocephalic and atraumatic Neck/C-Spine: COMMON NORMALS: no JVD Resp: COMMON NORMALS: normal respiratory effort, No retractions, No use of accessory muscles and clear to auscultation bilaterally AUSCULTATION: clear to auscultation bilaterally Cardio: COMMON NORMALS: no JVD, regular rate, regular rhythm and No murmurs present (Cardio) RATE: regular rate RHYTHM: regular rhythm GI: COMMON NORMALS: Soft to palpation and No hepatosplenomegaly present AUSCULTATION: Yes normoactive bowel sounds PALPATION: Yes Soft to palpation, No Tenderness to palpation present (GI), No Guarding due to palpation present (GI) and Yes No hepatosplenomegaly present Extremity: COMMON NORMALS: normal to inspection, capillary refill normal, no clubbing, cyanosis or edema, no calf tenderness and no pedal edema Neuro: SENSORIUM/ORIENTATION: Yes oriented to person, Yes oriented to place and Yes oriented to time Skin: COMMON NORMALS: no rashes or lesions noted GENERAL SKIN EXAM: no rashes or lesions noted Course Vital Signs: Vital signs: Vital Signs Temperature 98.7 F 08/21/21 15:06 Pulse Rate 68 08/21/21 15:06 Respiratory Rate 20 H 08/21/21 15:06 Blood Pressure 101/79 08/21/21 15:06 Pulse Oximetry 94 08/21/21 15:06 MDM - Nausea/Vomiting/Diarrhea Medical Decision Making Reviewed findings the patient does have an incidental finding of a bladder infection for which we will start him on antibiotics continue vancomycin encouraged him to follow-up with primary care doctor within the next 3 to 5 days he may need to stay in a more extended period of vancomycin discussed typical course of treatment of C. difficile and what to anticipate. Have him follow-up with primary care as directed. Return if has further problems. Medical Records I reviewed the patient's medical records. Lab Data I reviewed the patient's lab results. : 08/21/21 11:00 08/21/21 11:00 Radiology Impressions Abdomen/Pelvis CT 08/21/21 10:18 IMPRESSION: 1. Marked progressive constipation and obstipation. 2. Cannot confirm pneumatosis and no free air identified. 3. New mild circumferential mucosal thickening of the rectum with presacral in flammatory changes and a tiny amount of free fluid. These findings have progressed since 08/15/2021 suggesting inflammatory colitis/proctitis. 4. Marked distention of the urinary bladder. Probably due to outlet obstruction as the prostate gland is significantly enlarged. 5. Prior cholecystectomy with bile duct dilatation. Similar to the prior study. No obstructing stone or mass identified. Laboratory Results WBC 12.2 10^3/uL (4.0-10.0) H 08/21/21 11:00 RBC 4.89 10^6/uL (4.1-5.3) 08/21/21 11:00 Hgb 15.2 g/dL (11.7-16.6) 08/21/21 11:00 Hct 44.2 % (42.0-52.0) 08/21/21 11:00 MCV 90.4 fl (80-94) 08/21/21 11:00 MCH 31.1 pg (28.0-34.0) 08/21/21 11:00 MCHC 34.4 g/dL (30.0-36.0) 08/21/21 11:00 RDW 15.1 % (12.1-15.1) 08/21/21 11:00 Plt Count 288 10^3/cmm (130-400) 08/21/21 11:00 MPV 9.7 fL (7.4-10.4) 08/21/21 11:00 Neut % (Auto) 75.0 % 08/21/21 11:00 Lymph % (Auto) 20.0 % 08/21/21 11:00 [place] % (Auto) 4.2 % 08/21/21 11:00 Eos % (Auto) 0.2 % 08/21/21 11:00 Baso % (Auto) 0.4 % 08/21/21 11:00 Neut # (Auto) 9.17 10^3/uL (1.8-7.7) H 08/21/21 11:00 Lymph # (Auto) 2.4 10^3/uL (0.8-4.8) 08/21/21 11:00 [place] # (Auto) 0.5 10^3/uL (0.2-0.9) 08/21/21 11:00 Eos # (Auto) 0.0 10^3/uL (0.0-0.8) 08/21/21 11:00 Baso # (Auto) 0.1 10^3/uL (0.0-0.1) 08/21/21 11:00 Nucleated RBC % (auto) 0 % 08/21/21 11:00 Nucleated RBCs # 0.0 /100WBC 08/21/21 11:00 Sodium 141 mmol/L (136-145) 08/21/21 11:00 Potassium 3.7 mmol/L (3.5-5.1) 08/21/21 11:00 Chloride 106 mmol/L (98-107) 08/21/21 11:00 Carbon Dioxide 23 mmol/L (22-29) 08/21/21 11:00 Anion Gap 15.7 (5-19) 08/21/21 11:00 BUN 15 mg/dL (8-23) 08/21/21 11:00 Creatinine 0.6 mg/dL (0.7-1.2) L 08/21/21 11:00 GFR Calculation Not Reportable 08/21/21 11:00 Glucose 155 mg/dL (65-115) H 08/21/21 11:00 Calculated Osmolality 296 mOsm/kg (285-295) H 08/21/21 11:00 Lactic Acid 0.9 mmol/L (0.5-2.2) 08/21/21 11:00 Calcium 9.6 mg/dL (8.5-10.5) 08/21/21 11:00 Total Bilirubin 0.6 mg/dL (0.15-1.2) 08/21/21 11:00 AST 28 U/L (0-40) 08/21/21 11:00 ALT 10 U/L (0-41) 08/21/21 11:00 Alkaline Phosphatase 163 IU/L (40-130) H 08/21/21 11:00 Total Protein 6.4 g/dL (6.6-8.7) L 08/21/21 11:00 Albumin 4.1 g/dL (3.5-5.2) 08/21/21 11:00 Globulin 2.3 g/dL (1.3-4.6) 08/21/21 11:00 Lipase 14 U/L (13-60) 08/21/21 11:00 Urine Color Yellow (Yellow) 08/21/21 11:41 Urine Appearance Cloudy (CLEAR) 08/21/21 11:41 Urine pH 5 (5-7) 08/21/21 11:41 Ur Specific [place] 1.025 (1.005-1.030) 08/21/21 11:41 Urine Protein Trace (Negative) 08/21/21 11:41 Urine Glucose (UA) Norm (Normal) 08/21/21 11:41 Urine Ketones Negative (Negative) 08/21/21 11:41 Urine Blood Neg (Negative) 08/21/21 11:41 Urine Nitrate Negative (Negative) 08/21/21 11:41 Urine Bilirubin Neg (Negative) 08/21/21 11:41 Urine Urobilinogen 1 mg/dL (Negative) H 08/21/21 11:41 Ur Leukocyte Esterase 2+ (Negative) H 08/21/21 11:41 Urine RBC 0-4 /hpf (0-2) H 08/21/21 11:41 Urine WBC 15-25 /hpf (0-5) H 08/21/21 11:41 Ur Squamous Epith Cells 0-4 /hpf (0-5) H 08/21/21 11:41 Ur Transition Epith Cell None /hpf 08/21/21 11:41 Ur Renal Epithelial Cell N /hpf 08/21/21 11:41 Calcium Oxalate Crystal 0-4 /hpf H 08/21/21 11:41 Uric Acid Crystals N /hpf 08/21/21 11:41 Triple Phos Crystals None /hpf 08/21/21 11:41 Other Crystals N /hpf 08/21/21 11:41 Amorphous Sediment Trace /hpf 08/21/21 11:41 Urine Bacteria 3+ /hpf (NONE) H 08/21/21 11:41 Hyaline Casts None /lpf 08/21/21 11:41 Fine Granular Casts None /lpf 08/21/21 11:41 Urine Mucus N /hpf 08/21/21 11:41 Discharge Plan Discharge Patient Disposition: Home Clinical Impression: Clostridium difficile colitis, BPH with obstruction/lower urinary tract symptoms, Recurrent UTI, Acute urinary retention Condition: Stable Prescriptions: New tamsulosin 0.4 mg capsule 0.8 mg PO DAILY Qty: 60 0RF Macrobid 100 mg capsule 100 mg PO BID 7 Days Qty: 14 0RF Rx Instructions: must administer with a meal/food No Action carbidopa-levodopa 25-100 mg tablet 1 tab PO 5XD 0RF melatonin 5 mg capsule 10 mg PO QPM 0RF ipratropium-albuterol 0.5 mg-3 mg(2.5 mg base)/3 mL solution for nebulization 3 ml inhalation Q4H PRN (Reason: wheezing) Qty: 180 6RF amantadine HCl 100 mg capsule 100 mg PO BID 0RF quetiapine 25 mg tablet 25 mg PO BID 0RF bupivacaine (PF) 0.25 % (2.5 mg/mL) solution 2 ml Infiltration ONCE Qty: 1 0RF dexamethasone sodium phos (PF) 10 mg/mL solution 8 mg Infiltration ONCE Qty: 0.8 0RF ropinirole 0.5 mg tablet 0.5 mg PO TID 0RF trazodone 50 mg tablet 50 mg PO DAILY 0RF finasteride 5 mg tablet See Rx Instructions .ROUTE .COMPLEX Qty: 90 3RF Dose Instruction: TAKE 1 TABLET DAILY Rx Instructions: TAKE 1 TABLET DAILY gabapentin 600 mg tablet 600 mg PO BID 90 Days Qty: 180 1RF tamsulosin 0.4 mg capsule See Rx Instructions .ROUTE .COMPLEX Qty: 180 1RF Dose Instruction: TAKE 1 CAPSULE TWICE A DAY Rx Instructions: TAKE 1 CAPSULE TWICE A DAY omeprazole 40 mg capsule,delayed release(DR/EC) See Rx Instructions .ROUTE .COMPLEX Qty: 90 3RF Dose Instruction: TAKE 1 CAPSULE DAILY Rx Instructions: TAKE 1 CAPSULE DAILY acetaminophen-codeine 300-30 mg tablet 1 tab PO Q6H PRN (Reason: pain) 10 Days Qty: 40 0RF ondansetron 4 mg tablet,disintegrating 4 mg PO Q6H PRN (Reason: nausea and vomiting) Qty: 14 0RF Percocet 5-325 mg tablet 1 tab PO Q8H PRN (Reason: pain) Qty: 14 0RF vancomycin 125 mg capsule 125 mg PO QID 14 Days Qty: 56 0RF Discharge Orders: Discharge ED (Routine); Ordered 08/21/21 Ordered By: Dennis Aguilera Referrals: Saadia Hameed MD [Primary Care Provider] - Discharge Diet: Usual diet Discharge Activity: Increase activity as tolerated Patient Instructions: Opioid Safety Activity Restrictions/Additional Instructions: Call Dr. Encarnacion's office for a follow-up regarding the urinary retention. Call your primary care doctor and be seen early next week. Coding Level of Care Code ED Draw Frame Runner for Chg Fwd Exam Comprehensive
[2021-08-21] MEDS: iohexol 300 mg/mL 100 mL Btl IV (12:37)
[2021-08-21 13:00] VITALS: BP 145/81; PULSE 84; RESP 17; O2SAT 98
[2021-08-21] MEDS: cefTRIAXone 1,000 MG in sodium chloride 0.9% (plus) 50 ML 100 MG IV (13:47)
[2021-08-21 14:51] VITALS: RESP 20; O2SAT 94
[2021-08-21 15:06] VITALS: BP 101/79; PULSE 68; RESP 20; TEMP 37.1; O2SAT 94
== END 2021-08-21 15:12 | disposition home or self-care (01) ==
PROVIDERS: Emergency Provider Family Medicine; PCP Family Medicine
DX: A04.72 Enterocolitis due to Clostridium difficile, not specified as recurrent (principal); Z87.891 Personal history of nicotine dependence; K52.9 Noninfective gastroenteritis and colitis, unspecified; N40.1 Benign prostatic hyperplasia with lower urinary tract symptoms; Z87.440 Personal history of urinary (tract) infections; R33.9 Retention of urine, unspecified
CPT/HCPCS: 51702; 74177; 80053; 81001; 83605; 83690; 85025; 87077; 87086; 87186; 96365; 96375; 96376; 99284; J0696; J2270; J2405; J7030; Q9967

== ENCOUNTER → 2021-09-16 11:43 | Outpatient (BNVA) | payer MEDICARE, SELFPAY | PROVIDERS: PCP Family Medicine; Visit Provider Physician Assistant | DX: M48.062 Spinal stenosis, lumbar region with neurogenic claudication (principal) | CPT/HCPCS: 99214; 99999 ==

== ENCOUNTER → 2021-10-20 15:07 | Outpatient (BNVA) | payer MEDICARE, SELFPAY | PROVIDERS: PCP Family Medicine; Visit Provider Urology | DX: N39.0 Urinary tract infection, site not specified (principal); R33.9 Retention of urine, unspecified | CPT/HCPCS: 51798; 99213 ==

== ENCOUNTER → 2021-10-21 13:28 | Outpatient (BNVA) | payer MEDICARE, SELFPAY | PROVIDERS: PCP Family Medicine; Visit Provider Specialist | DX: G20 Parkinson's disease (principal); E11.40 Type 2 diabetes mellitus with diabetic neuropathy, unspecified; I95.1 Orthostatic hypotension | CPT/HCPCS: 99204 ==

== ENCOUNTER 2021-10-23 12:23 | Outpatient (CLI) | payer MEDICARE, SELFPAY ==
--- NOTE | 2021-10-23 13:15 | MR_ITS ---
WS: [id number] MRI LUMBAR SPINE NONCONTRAST TECHNIQUE: Sagittal T1, T2 and STIR imaging. Axial T1 and T2 imaging. CLINICAL INFORMATION: lumbar pain COMPARISON: CT July 06, 2021 FINDINGS: Mild lumbar curve. No acute compression. Small disc protrusions worse at L1-L2, L2-L3, and L5-S1. Sli ght anterolisthesis L5-S1 is unchanged from previous. No acute compression fractures. L1-L2: Normal. L1-L2: Mild disc bulging with mild to moderate central canal stenosis. Impingement on the subarticula r recess bilaterally. Mild facet arthropathy. Moderate RIGHT foraminal narrowing. LEFT foramen is pat ent. L2-L3: Shallow central disc protrusion in combination with facet arthropathy and ligamentum flavum hy pertrophy results in moderate to severe central canal stenosis. Central canal measures approximately 6 mm in AP dimension. Mild RIGHT greater than LEFT foraminal narrowing. L3-L4: Mild annular bulging with endplate ridging. Slight effacement of ventral thecal sac. Slight im pingement on the traversing RIGHT L4 nerve root in the subarticular recess. Mild facet arthropathy. M ild bilateral foraminal narrowing L4-L5: Mild disc bulging with osteophytic ridging. Impingement traversing L5 nerve roots bilaterally. Mild facet arthropathy and ligamentum flavum hypertrophy. Mild central canal stenosis. Impingement t raversing RIGHT L5 nerve root. Moderate RIGHT and mild LEFT bony foraminal narrowing. L5-S1:Slight anterolisthesis with disc osteophyte complex. Advanced facet arthropathy with ligamentum flavum hypertrophy results in severe central canal stenosis. Impingement traversing S1 nerve roots b ilaterally. Central canal measures approximately 5 mm in AP dimension. Small bilateral facet effusion s. Visualized pelvic bony structures: Paravertebral soft tissues: Normal. MR/MR lumbar spine wo con* [id number] IMPRESSION: 1. Mild lumbar curve. No acute compression. Grade 1 anterolisthesis L5 on S1. 2. Mild to moderate central canal stenosis L1-L2. Moderate to severe central c anal stenosis L2-L3 and L5-S1 with facet arthropathy and ligamentum flavum hype rtrophy worse L5-S1. 3. Mild central canal stenosis L4-L5 with impingement traversing RIGHT greater than LEFT L5 nerve roots. Moderate RIGHT foraminal narrowing. 4. Severe bilateral L5-S1 foraminal narrowing LEFT greater than RIGHT. 5. Moderate RIGHT L1-L2 foraminal narrowing.
== END 2021-10-23 12:24 | disposition home or self-care (01) ==
LOC: RAD 12:26
PROVIDERS: PCP Family Medicine; Visit Provider Physician Assistant
DX: M47.816 Spondylosis without myelopathy or radiculopathy, lumbar region (principal); M48.061 Spinal stenosis, lumbar region without neurogenic claudication; M48.062 Spinal stenosis, lumbar region with neurogenic claudication; M51.16 Intervertebral disc disorders with radiculopathy, lumbar region
CPT/HCPCS: 72148

== ENCOUNTER 2021-11-27 06:30 | Outpatient (CLI) | payer MEDICARE, SELFPAY ==
--- NOTE | 2021-11-27 06:30 | CT_ITS ---
WS: [id number] CT HEAD NONCONTRAST HISTORY: G20 - Parkinson's disease TECHNIQUE: Contiguous axial imaging performed through the brain in 2.5 mm imaging. Bone and soft tiss ue windows. Sagittal and coronal reformats reviewed. All CT scans at [facility] use at least one of these dose optimization techniques: automated exposure control; mA and/or kV adjustment per pa tient size (includes targeted exams where dose is matched to clinical indication); or iterative recon struction. DLP: 1150.08 mGy.cm COMPARISON: None available. No acute intracranial hemorrhage, midline shift or mass effect. Mild atrophy and small vessel ischemic disease. No prior infarct. Ventricles: Normal size with no hydrocephalus. No inferior displacement of cerebellar tonsils. Paranasal sinuses: As visualized are clear. Mastoid air cells: Well pneumatized. Calvarium and scalp: Skull is intact with no soft tissue edema or swelling. CT/CT head wo con* [id number] IMPRESSION: 1. No acute intracranial hemorrhage or edema. 2. Mild atrophy and small vessel ischemic disease. 3. No prior infarct.
== END 2021-11-27 06:31 | disposition home or self-care (01) ==
PROVIDERS: PCP Family Medicine; Visit Provider Specialist
DX: G20 Parkinson's disease (principal); G31.9 Degenerative disease of nervous system, unspecified
CPT/HCPCS: 70450

== ENCOUNTER → 2022-03-16 12:44 | Outpatient (BNVA) | payer MEDICARE, SELFPAY | PROVIDERS: PCP Family Medicine; Visit Provider Podiatrist Foot & Ankle Surgery | DX: L84 Corns and callosities (principal); M20.41 Other hammer toe(s) (acquired), right foot; M20.42 Other hammer toe(s) (acquired), left foot; Q82.8 Other specified congenital malformations of skin; L60.3 Nail dystrophy | CPT/HCPCS: 99204 ==

== ENCOUNTER → 2022-04-20 15:53 | Outpatient (BNVA) | payer MEDICARE, SELFPAY | PROVIDERS: PCP Family Medicine; Visit Provider Urology | DX: N39.0 Urinary tract infection, site not specified (principal); R33.9 Retention of urine, unspecified | CPT/HCPCS: 81003; 99213 ==

== ENCOUNTER 2022-04-21 13:04 | Outpatient (CLI) | payer MEDICARE, SELFPAY ==
--- NOTE | 2022-04-21 13:21 | USCV_ITS ---
Kali Castro Age: 71 Gender: M : 1950 Exam Date: 04/21/2022 13:40 Ordering Phys: Saúl Su MD Technologist: Alberto Cardoso Exam Location: [facility] [place] Indication: exertional dyspnea BP: 124 / 56 HR: 68 Rhythm: Sinus Technical Quality: Adequate MEASUREMENTS (Male / Female) Normal Values 2D ECHO LV Diastolic Diameter PLAX 4.9 cm 4.2 - 5.9 / 3.9 - 5.3 cm LV Systolic Diameter PLAX 3.1 cm IVS Diastolic Thickness 0.8 cm 0.6 - 1.0 / 0.6 - 0.9 cm IVS Systolic Thickness 1.2 cm LVPW Diastolic Thickness 1.0 cm 0.6 - 1.0 / 0.6 - 0.9 cm LVPW Systolic Thickness 1.2 cm LVOT Diameter 2.0 cm LV Ejection Fraction 2D Teich 66.0 % LV Ejection Fraction MOD 2C 57.3 % LV Ejection Fraction 2C AL 57.7 % LA Diameter 3.1 cm LA Width 3.6 cm LA Height 4.2 cm RA Width 3.4 cm RA Height 4.3 cm Aorta at Sinotubular Diameter 1.9 cm IVC Diameter 1.3 cm M-MODE Aortic Annulus Diameter 2.8 cm LA Ao Ratio MM 1.2 MV E Point Septal Separation 0.7 cm DOPPLER AV Peak Velocity 154.3 cm/s LVOT Peak Velocity 89.0 cm/s AV Area Cont Eq vti 1.9 cm squared AV Area Cont Eq pk 1.8 cm squared MV Peak Velocity 94.0 cm/s MV Area PHT 4.0 cm squared Mitral E to A Ratio 0.6 MV E' Velocity 25.5 cm/s Mitral E to MV E' Ratio 5.9 Mitral E to LV E' Lateral Ratio 6.4 Mitral E to LV E' Septal Ratio 5.5 TR Peak Velocity 308.5 cm/s TR Peak Gradient 38.1 mmHg TR Mean Velocity 230.1 cm/s TR Mean Gradient 22.5 mmHg TR Velocity Time Integral 81.5 cm Right Atrial Pressure 3.0 mmHg Pulmonary Artery Systolic Pressu 41.1 mmHg PV Peak Velocity 190.3 cm/s RV Acceleration Time 0.1 s RV Ejection Time 0.3 s RV AcT/ET 0.4 FINDINGS Left Ventricle Normal left ventricular size and systolic function, EF 62 %. No regional wall motion abnormalities. Grade I/IV diastolic dysfunction (abnormal relaxation filling pattern), normal to mildly elevated filling pressures. Right Ventricle The right ventricle is normal in size and function. Right Atrium The right atrium is normal in size. Left Atrium The left atrium is normal in size. Mitral Valve Trace mitral valve regurgitation. Aortic Valve Thickened aortic valve. Tricuspid Valve Trace to mild tricuspid valve regurgitation. Pulmonic Valve Elevated velocity at the pulmonic valve, suggesting mild pulmonic valve stenosis Pericardium Normal pericardium without effusion. Aorta Normal ascending aorta dimension. IVC The inferior vena cava appears normal. CONCLUSIONS Normal left ventricular size and systolic function, EF 62 %. No regional wall motion abnormalities. Grade I/IV diastolic dysfunction (abnormal relaxation filling pattern), normal to mildly elevated filling pressures. Trace mitral valve regurgitation. Thickened aortic valve. Trace to mild tricuspid valve regurgitation. There is no pericardial effusion. There are no intracardiac masses. Compared to the study from 02/21/2020, there may not be a significant change Dr Traci Antony MD FACC (Electronically Signed) Final Date: 21 April 2022 21:52 S
== END 2022-04-21 13:05 | disposition home or self-care (01) ==
PROVIDERS: PCP Family Medicine; Visit Provider Family Medicine
DX: I08.3 Combined rheumatic disorders of mitral, aortic and tricuspid valves (principal); R06.09 Other forms of dyspnea
CPT/HCPCS: 93306

== ENCOUNTER → 2022-04-23 09:30 | Outpatient (BNVA) | payer MEDICARE, SELFPAY | PROVIDERS: PCP Family Medicine; Visit Provider Podiatrist Foot & Ankle Surgery | DX: L60.3 Nail dystrophy (principal); L60.8 Other nail disorders; L84 Corns and callosities; M20.41 Other hammer toe(s) (acquired), right foot; M20.42 Other hammer toe(s) (acquired), left foot; Q82.8 Other specified congenital malformations of skin | CPT/HCPCS: 11750 ==

== ENCOUNTER 2022-09-28 13:18 | Emergency (ER) | payer MEDICARE, SELFPAY ==
[2022-09-28 13:19] VITALS: BP 117/75; PULSE 62; RESP 18; TEMP 36.4; O2SAT 99; BMI 25.0
--- NOTE | 2022-09-28 13:35 | ED_ITS ---
HPI - Male Genitourinary General: Chief complaint: Urogenital-Male Stated complaint: testicle problems sent from [facility] Time Seen by Provider: 09/28/22 13:28 History of Present Illness: Patient presents to the ER from urgent care with complaints of left testicular pain and swelling. This started last night patient is never had this before. Patient does get catheter urines. Patient's noted he is urine is more cloudy and milky than normal. Patient has had this before in the past and it signified a urinary tract infection. Patient is not complaining of any urinary symptoms otherwise MD Complaint: testicle pain and testicle swelling Onset (ago): day(s) (Yesterday) Duration: constant Location: left testicle Severity: mild Quality: aching Relieving factors: none Exacerbating factors: palpation Associated symptoms: Deny dysuria, nausea or vomiting Review of Systems General: Reports: 10 or more systems reviewed and unremarkable except in HPI and below Const: Denies: fever(s) Eyes: Denies: change in vision or photophobia ENMT: Denies: throat pain or odynophagia Card: Denies: chest pain, palpitations or irregular heart rhythm Resp: Denies: dyspnea, productive cough or non-productive cough GI: Denies: abdominal pain, nausea, vomiting or hematemesis : Reports: testicular pain and scrotal swelling; Denies: flank pain, difficulty urinating or dysuria PFSH ED PFSH: Medical History BPH with obstruction/lower urinary tract symptoms C. difficile diarrhea Chronic diarrhea Chronic GERD Hypercholesteremia Neuropathy Parkinson disease Type 2 diabetes mellitus Urinary retention Surgical History Hx of cholecystectomy Hx of sigmoidoscopy (06/11/20) incomplete due to poor prep Status post colonoscopy (08/13/20) diverticulosis Family History Mother Congestive heart failure Social History Smoking and tobacco status: former smoker Alcohol intake: former Substance/Drug Use: never Marital status: Current occupational status: retired Do you think of yourself as: Straight/Heterosexual Physical Exam Const: COMMON NORMALS: no acute distress, patient oriented x3, no limitations, healthy appearing, alert and well nourished HENMT: COMMON NORMALS: normocephalic, hearing grossly normal bilaterally, external ears normal, Normal external nose present and moist oral mucous membranes HEAD & SCALP: normocephalic NOSE: Normal external nose present EXTERNAL EAR: Yes external ears normal Eye: COMMON NORMALS: Equal, round and reactive pupils present, EOMs intact bilaterally, conjunctivae normal and no scleral icterus CONJUNCTIVA: Yes conjunctivae normal PUPIL: Yes Equal, round and reactive pupils present Neck/C-Spine: COMMON NORMALS: full ROM, no lymphadenopathy, supple, no meningeal signs, no JVD and Thyroid normal THYROID: Thyroid normal Lymph: LYMPHATIC: no lymphadenopathy noted Chest: COMMONS NORMALS: normal inspection of the chest and normal palpation of entire chest wall Resp: COMMON NORMALS: normal respiratory effort, No retractions, No use of accessory muscles and clear to auscultation bilaterally AUSCULTATION: clear to auscultation bilaterally Cardio: COMMON NORMALS: no JVD, regular rate, regular rhythm, S1 normal heart sound present, S2 normal heart sound present, No gallops present (Cardio), No clicks present (Cardio), No murmurs present (Cardio) and No rub (Cardio) RATE: regular rate RHYTHM: regular rhythm HEART SOUNDS: S1 normal heart sound present and S2 normal heart sound present GI: COMMON NORMALS: Normal to inspection, nondistended, normoactive bowel sounds present, Soft to palpation, non-tender, No hepatosplenomegaly present and no masses PALPATION: Yes Soft to palpation and Yes No hepatosplenomegaly present Neuro: COMMON NORMALS: patient oriented x3 SENSORIUM/ORIENTATION: Yes alert MENINGEAL SIGNS: Yes no meningeal signs Course Vital Signs: Vital signs: Vital Signs Temperature 97.6 F 09/28/22 13:19 Pulse Rate 73 09/28/22 14:25 Respiratory Rate 16 09/28/22 14:25 Blood Pressure 117/75 09/28/22 13:19 Pulse Oximetry 96 09/28/22 14:25 Oxygen Delivery Me thod Room Air 09/28/22 14:25 MDM - Male Medical Decision Making Patient presents with left scrotal swelling and cloudy urine. Patient has had a urine before and was put on antibiotics and it resolved. Patient does self cath. Patient is never had the left scrotal swelling before. Ultrasound was obtained which showed acute left epididymitis and a small left hydrocele. Urinalysis was obtained which did show 2+ leukocyte Estrace greater than 100 white blood cells. Patient was given Cipro 500 mg in ER and will be discharged home on Cipro patient should follow-up with his primary care doc within the next 1 week. Differential Diagnosis Likely epididymitis; Unlikely urinary tract infection, priapism, urethritis, genital herpes simplex, prostatitis, acute retention of urine or inguinal hernia Medical Records I reviewed the patient's medical records. Lab Data I reviewed the patient's lab results. Radiology Impressions Scrotum Ultrasound 09/28/22 13:35 IMPRESSION: 1. No testicular mass or torsion. 2. Acute LEFT epididymitis. 3. Mildly complex, small LEFT hydrocele. Laboratory Results Urine Color Yellow (Yellow) 09/28/22 16:06 Urine Appearance Hazy (CLEAR) A 09/28/22 16:06 Urine pH 6 (5-7) 09/28/22 16:06 Ur Specific [place] 1.015 (1.005-1.030) 09/28/22 16:06 Urine Protein Neg (Negative) 09/28/22 16:06 Urine Glucose (UA) Norm (Normal) 09/28/22 16:06 Urine Ketones 1+ (Negative) H 09/28/22 16:06 Urine Blood 2+ (Negative) H 09/28/22 16:06 Urine Nitrate Negative (Negative) 09/28/22 16:06 Urine Bilirubin Neg (Negative) 09/28/22 16:06 Urine Urobilinogen Norm mg/dL (Negative) 09/28/22 16:06 Ur Leukocyte Esterase 2+ (Negative) H 09/28/22 16:06 Urine RBC 5-10 /hpf (0-2) H 09/28/22 16:06 Urine WBC >100 /hpf (0-5) H 09/28/22 16:06 Ur Squamous Epith Cells 0-4 /hpf (0-5) H 09/28/22 16:06 Amorphous Sediment 2+ /hpf 09/28/22 16:06 Urine Bacteria Trace /hpf (NONE) 09/28/22 16:06 Discharge Plan Discharge Patient Disposition: Home Clinical Impression: Epididymitis Urinary tract infection Qualifiers: Urinary tract infection type: acute cystitis Hematuria presence: with hematuria Qualified Code(s): N30.01 - Acute cystitis with hematuria Condition: Stable Prescriptions: New Cipro 500 mg tablet 500 mg PO BID Qty: 20 0RF No Action carbidopa-levodopa 25-100 mg tablet 1 tab PO 5XD melatonin 5 mg capsule 10 mg PO QPM ipratropium-albuterol 0.5 mg-3 mg(2.5 mg base)/3 mL solution for nebulization 3 ml inhalation Q4H PRN (Reason: wheezing) Qty: 180 6RF amantadine HCl 100 mg capsule 100 mg PO BID quetiapine 25 mg tablet 25 mg PO BID bupivacaine (PF) 0.25 % (2.5 mg/mL) solution 2 ml Infiltration ONCE Qty: 1 0RF dexamethasone sodium phos (PF) 10 mg/mL solution 8 mg Infiltration ONCE Qty: 0.8 0RF ropinirole 0.5 mg tablet 0.5 mg PO TID trazodone 50 mg tablet 50 mg PO DAILY silver sulfadiazine [Silvadene] 1 % cream 1 applic topical DAILY Qty: 20 0RF Rx Instructions: apply a 1.5 mm thickness ropinirole 1 mg tablet 1 mg PO TID loperamide [Imodium A-D] 2 mg tablet 2 mg PO Q6H PRN (Reason: loose stool) Qty: 20 0RF oxycodone-acetaminophen 5-325 mg tablet 1 tab PO Q4H PRN (Reason: pain) 7 Days Qty: 40 0RF omeprazole 40 mg capsule,delayed release(DR/EC) See Rx Instructions .ROUTE .COMPLEX Qty: 90 3RF Dose Instruction: TAKE 1 CAPSULE DAILY Rx Instructions: TAKE 1 CAPSULE DAILY tamsulosin 0.4 mg capsule See Rx Instructions .ROUTE .COMPLEX Qty: 180 3RF Dose Instruction: TAKE 1 CAPSULE TWICE A DAY Rx Instructions: TAKE 1 CAPSULE TWICE A DAY gabapentin 600 mg tablet 600 mg PO BID 90 Days Qty: 180 1RF finasteride 5 mg tablet See Rx Instructions .ROUTE .COMPLEX Qty: 90 3RF Dose Instruction: TAKE 1 TABLET DAILY Rx Instructions: TAKE 1 TABLET DAILY methenamine hippurate 1 gram tablet See Rx Instructions .ROUTE .COMPLEX Qty: 180 3RF Dose Instruction: TAKE ONE TABLET BY MOUTH TWICE A DAY ALONG WITH THE 1000MG OF VITAMIN C. Rx Instructions: TAKE ONE TABLET BY MOUTH TWICE A DAY ALONG WITH THE 1000MG OF VITAMIN C. ondansetron 4 mg tablet,disintegrating 4 mg PO Q6H PRN (Reason: nausea and vomiting) Qty: 14 0RF Discharge Orders: Discharge ED (Routine); Ordered 09/28/22 Ordered By: Robert Castillo Referrals: Saúl Su MD [Primary Care Provider] - 1 week Patient Instructions: Epididymitis (ED), Urinary Tract Infection - Men Coding Level of Care Code ED Metallurgical Laboratory Assistant for Rashaad Gardner
--- NOTE | 2022-09-28 13:35 | US_ITS ---
WS: [id number] TESTICULAR ULTRASOUND HISTORY: left testicle/scrotum swelling pain COMPARISON: None available. TECHNIQUE: Real-time and color Doppler imaging or utilized to perform a testicular ultrasound. Right testicle: 5.3 cm x 2.9 cm x 2.7 cm. Normal size and echogenicity. No mass or torsion. Normal color Doppler is present throughout. Systolic and diastolic velocities are both present. No significant hydrocele. Right epididymis: Normal epididymis with no increased vascularity. Left testicle: 4.7 cm x 3.3 cm x 2.8 cm. Normal size and echogenicity. No mass or torsion. Normal color Doppler is present throughout. Systolic and diastolic velocities are both present. Mildly complex hydrocele. Low level echoes within the hydrocele. Left epididymis: Enlarged, heterogeneous and mildly hypervascular epididymis. US/US scrotum [id number] IMPRESSION: 1. No testicular mass or torsion. 2. Acute LEFT epididymitis. 3. Mildly complex, small LEFT hydrocele.
[2022-09-28 14:25] VITALS: PULSE 73; RESP 16; O2SAT 96
[2022-09-28] MEDS: ciprofloxacin 500 mg Tablet PO (16:19)
[2022-09-28 16:34] LABS: Bilirubin Urine Neg (Negative); Blood Urine 2+ (Negative); Glucose Urine UA Norm (Normal); Ketones Urine 1+ (Negative); Leukocyte Esterase Urine 2+ (Negative); Nitrate Urine Negative (Negative); Protein Urine Neg (Negative); Specific Gravity, Urine 1.015 (1.005-1.030); Urine Appearance Hazy (CLEAR); Urine Color Yellow (Yellow); Urobilinogen Urine Norm (Negative); pH Urine 6 (5-7)
[2022-09-28 16:35] LABS: Add Urine Culture? Yes; Add Urine Microscopic? YES; Amorphous Sediment Urine 2+ /hpf; Bacteria Urine TRACE /hpf; Squamous Epithelial Cell Urine 0-4 /hpf (0-5); WBC Urine >100 /hpf (0-5)
== END 2022-09-28 17:12 | disposition home or self-care (01) ==
PROVIDERS: Emergency Provider Emergency Medicine; PCP Family Medicine
DX: N45.1 Epididymitis (principal); N30.01 Acute cystitis with hematuria; Z87.891 Personal history of nicotine dependence; G20 Parkinson's disease; E11.9 Type 2 diabetes mellitus without complications
CPT/HCPCS: 76870; 81001; 87086; 99284

== ENCOUNTER 2022-10-30 11:11 | Emergency (ER) | payer MEDICARE, SELFPAY ==
[2022-10-30 11:21] VITALS: BP 123/72; PULSE 82; RESP 16; TEMP 36.7; O2SAT 98; BMI 25.0
--- NOTE | 2022-10-30 11:44 | US_ITS ---
WS: [id number] TESTICULAR ULTRASOUND HISTORY: left test ible pain swelling, hx epididymitis COMPARISON: 09/28/2022 TECHNIQUE: Real-time and color Doppler imaging or utilized to perform a testicular ultrasound. Right testicle: 4.8 cm x 2.6 cm x 2.9 cm. Normal size and echogenicity. No mass or torsion. Normal color Doppler is present throughout. Systolic and diastolic velocities are both present. No significant hydrocele. Right epididymis: Normal epididymis with no increased vascularity. Small spermatoceles. Largest measu res approximately 4 x 4 x 3 mm. Left testicle: 4.8 cm x 2.8 cm x 3.1 cm. Normal size and echogenicity. No mass or torsion. Normal color Doppler is present throughout. Systolic and diastolic velocities are both present. No significant hydrocele. Left epididymis: Markedly enlarged heterogeneous and hyperemic LEFT epididymis. This has progressed s jolly the prior examination. No abscess is identified. The testicle appears normal. No orchitis. There is mild soft tissue and scrotal wall thickening. US/US scrotum [id number] IMPRESSION: 1. Advanced, acute LEFT epididymitis with significant progression since the pr ior study of 09/28/2022. 2. Mild LEFT scrotal wall thickening. 3. No testicular mass or torsion.
--- NOTE | 2022-10-30 11:45 | W.ED.MALEGU ---
HPI - Male Genitourinary General: Chief complaint: Urogenital-Male Stated complaint: left testicle and urogenital issues Time Seen by Provider: 10/30/22 11:18 History of Present Illness: Patient presents to the ER with complaints of left-sided testicular pain and swelling starting yesterday. He reports he was out working trying to pull up some weeds and tree roots and may have overdid it and strained. Patient does have a history of left epididymitis and about 1 month ago at that he this was resolved. But this patient states he feels exactly the same as then. Patient makes the pain worse nothing makes it better. No nausea vomiting diarrhea dysuria noted. Review of Systems General: Reports: 10 or more systems reviewed and unremarkable except in HPI and below PFSH ED PFSH: Medical History BPH with obstruction/lower urinary tract symptoms C. difficile diarrhea Chronic diarrhea Chronic GERD Hypercholesteremia Neuropathy Parkinson disease Type 2 diabetes mellitus Urinary retention Surgical History Hx of cholecystectomy Hx of sigmoidoscopy (06/11/20) incomplete due to poor prep Status post colonoscopy (08/13/20) diverticulosis Family History Mother Congestive heart failure Social History Smoking and tobacco status: former smoker Alcohol intake: former Substance/Drug Use: never Marital status: Current occupational status: retired Do you think of yourself as: Straight/Heterosexual Physical Exam Const: COMMON NORMALS: no acute distress, average body habitus, patient oriented x3, no limitations, healthy appearing, alert and well nourished HENMT: COMMON NORMALS: normocephalic, atraumatic, hearing grossly normal bilaterally, external ears normal, Normal external nose present and moist oral mucous membranes HEAD & SCALP: normocephalic and atraumatic NOSE: Normal external nose present EXTERNAL EAR: Yes external ears normal Neck/C-Spine: COMMON NORMALS: full ROM, no lymphadenopathy, supple, no meningeal signs, no JVD and Thyroid normal THYROID: Thyroid normal Chest: COMMONS NORMALS: normal inspection of the chest and normal palpation of entire chest wall Resp: COMMON NORMALS: normal respiratory effort, No retractions, No use of accessory muscles and clear to auscultation bilaterally AUSCULTATION: clear to auscultation bilaterally Cardio: COMMON NORMALS: no JVD, regular rate, regular rhythm, S1 normal heart sound present, S2 normal heart sound present, No gallops present (Cardio), No clicks present (Cardio), No murmurs present (Cardio) and No rub (Cardio) RATE: regular rate RHYTHM: regular rhythm HEART SOUNDS: S1 normal heart sound present and S2 normal heart sound present GI: COMMON NORMALS: Normal to inspection, nondistended, normoactive bowel sounds present, Soft to palpation, non-tender, No hepatosplenomegaly present and no masses PALPATION: Yes Soft to palpation and Yes No hepatosplenomegaly present Neuro: COMMON NORMALS: patient oriented x3 SENSORIUM/ORIENTATION: Yes alert MENINGEAL SIGNS: Yes no meningeal signs Course Vital Signs: Vital signs: Vital Signs Temperature 98.1 F 10/30/22 11:21 Pulse Rate 82 10/30/22 11:21 Respiratory Rate 16 10/30/22 11:21 Blood Pressure 123/72 10/30/22 11:21 Pulse Oximetry 98 10/30/22 11:21 Oxygen Delivery Me thod Room Air 10/30/22 11:21 MDM - Male Medical Decision Making Patient presented with the same symptoms as he did last time which was consistent with left epididymitis. Ultrasound was again obtained which showed advanced acute left epididymitis with significant progression since last study. Patient be placed on doxycycline and followed up with urology for this. Differential Diagnosis Likely epididymitis; Unlikely urinary tract infection, priapism, urethritis, genital herpes simplex, prostatitis, acute retention of urine or inguinal hernia Medical Records I reviewed the patient's medical records. Lab Data I reviewed the patient's lab results. Radiology Impressions Scrotum Ultrasound 10/30/22 11:44 IMPRESSION: 1. Advanced, acute LEFT epididymitis with significant progression since the prior study of 09/28/2022. 2. Mild LEFT scrotal wall thickening. 3. No testicular mass or torsion. Discharge Plan Discharge Patient Disposition: Home Clinical Impression: Epididymitis Condition: Stable Prescriptions: New doxycycline hyclate 100 mg capsule 100 mg PO BID 21 Days Qty: 42 0RF No Action carbidopa-levodopa 25-100 mg tablet 1 tab PO 5XD melatonin 5 mg capsule 10 mg PO QPM ipratropium-albuterol 0.5 mg-3 mg(2.5 mg base)/3 mL solution for nebulization 3 ml inhalation Q4H PRN (Reason: wheezing) Qty: 180 6RF amantadine HCl 100 mg capsule 100 mg PO BID quetiapine 25 mg tablet 25 mg PO BID bupivacaine (PF) 0.25 % (2.5 mg/mL) solution 2 ml Infiltration ONCE Qty: 1 0RF dexamethasone sodium phos (PF) 10 mg/mL solution 8 mg Infiltration ONCE Qty: 0.8 0RF ropinirole 0.5 mg tablet 0.5 mg PO TID trazodone 50 mg tablet 50 mg PO DAILY silver sulfadiazine [Silvadene] 1 % cream 1 applic topical DAILY Qty: 20 0RF Rx Instructions: apply a 1.5 mm thickness ropinirole 1 mg tablet 1 mg PO TID loperamide [Imodium A-D] 2 mg tablet 2 mg PO Q6H PRN (Reason: loose stool) Qty: 20 0RF oxycodone-acetaminophen 5-325 mg tablet 1 tab PO Q4H PRN (Reason: pain) 7 Days Qty: 40 0RF omeprazole 40 mg capsule,delayed release(DR/EC) See Rx Instructions .ROUTE .COMPLEX Qty: 90 3RF Dose Instruction: TAKE 1 CAPSULE DAILY Rx Instructions: TAKE 1 CAPSULE DAILY tamsulosin 0.4 mg capsule See Rx Instructions .ROUTE .COMPLEX Qty: 180 3RF Dose Instruction: TAKE 1 CAPSULE TWICE A DAY Rx Instructions: TAKE 1 CAPSULE TWICE A DAY gabapentin 600 mg tablet 600 mg PO BID 90 Days Qty: 180 1RF finasteride 5 mg tablet See Rx Instructions .ROUTE .COMPLEX Qty: 90 3RF Dose Instruction: TAKE 1 TABLET DAILY Rx Instructions: TAKE 1 TABLET DAILY methenamine hippurate 1 gram tablet See Rx Instructions .ROUTE .COMPLEX Qty: 180 3RF Dose Instruction: TAKE ONE TABLET BY MOUTH TWICE A DAY ALONG WITH THE 1000MG OF VITAMIN C. Rx Instructions: TAKE ONE TABLET BY MOUTH TWICE A DAY ALONG WITH THE 1000MG OF VITAMIN C. Cipro 500 mg tablet 500 mg PO BID Qty: 20 0RF ondansetron 4 mg tablet,disintegrating 4 mg PO Q6H PRN (Reason: nausea and vomiting) Qty: 14 0RF Discharge Orders: Discharge ED (Routine); Ordered 10/30/22 Ordered By: Robert Castillo Referrals: Saúl Su MD [Primary Care Provider] - 1 week Patient Instructions: Epididymitis Activity Restrictions/Additional Instructions: Please take your antibiotics as directed. He been referred to case management for referral to urology. Please anticipate their call within the next few days. Coding Level of Care Code ED Creping Machine Operator for Rashaad Gardner
--- NOTE | 2022-10-31 11:21 | DCPLANNER ---
Addendum entered by Madison Canales 11/01/22 06:48: dude ranch manager received the following message from the urology clinic regarding follow up appointment: please send to urology elsewhere or pcp for follow up. Original Note: dude ranch manager had message to schedule a follow up appointment for patient with urology. dude ranch manager sent patients information to the front office staff at urology. Patients information will be printed and reviewed. Clinic will call patient with appointment information.
--- NOTE | 2022-11-02 16:46 | PC.SOCIAL ---
Urology Referral Referral sent to [facility] at this time.
== END 2022-10-30 13:44 | disposition home or self-care (01) ==
PROVIDERS: Emergency Provider Emergency Medicine; PCP Family Medicine
DX: N45.1 Epididymitis (principal)
CPT/HCPCS: 76870; 99284

== ENCOUNTER → 2022-11-02 13:47 | Outpatient (BNVA) | payer MEDICARE, SELFPAY | PROVIDERS: PCP Family Medicine; Visit Provider Podiatrist Foot & Ankle Surgery | DX: G57.61 Lesion of plantar nerve, right lower limb (principal); M20.41 Other hammer toe(s) (acquired), right foot; M20.42 Other hammer toe(s) (acquired), left foot; M21.611 Bunion of right foot; M21.612 Bunion of left foot | CPT/HCPCS: 73630; 99213 ==

== ENCOUNTER → 2023-01-05 13:56 | Outpatient (BNVA) | payer MEDICARE, SELFPAY | PROVIDERS: PCP Family Medicine; Visit Provider Podiatrist Foot & Ankle Surgery | DX: M20.41 Other hammer toe(s) (acquired), right foot (principal); M20.42 Other hammer toe(s) (acquired), left foot; M21.611 Bunion of right foot; M21.612 Bunion of left foot; G57.61 Lesion of plantar nerve, right lower limb; L60.3 Nail dystrophy; E11.649 Type 2 diabetes mellitus with hypoglycemia without coma | CPT/HCPCS: 11721 ==

== ENCOUNTER → 2023-03-17 14:57 | Outpatient (BNVA) | payer MEDICARE, SELFPAY | PROVIDERS: PCP Family Medicine; Visit Provider Podiatrist Foot & Ankle Surgery | DX: L60.3 Nail dystrophy (principal); G57.61 Lesion of plantar nerve, right lower limb; E11.649 Type 2 diabetes mellitus with hypoglycemia without coma; G62.9 Polyneuropathy, unspecified; E11.42 Type 2 diabetes mellitus with diabetic polyneuropathy | CPT/HCPCS: 11721 ==

== ENCOUNTER → 2023-06-01 13:23 | Outpatient (BNVA) | payer MEDICARE, SELFPAY | PROVIDERS: PCP Family Medicine; Visit Provider Dermatology | DX: B07.8 Other viral warts (principal); L21.8 Other seborrheic dermatitis; L57.0 Actinic keratosis; L30.0 Nummular dermatitis; L57.8 Other skin changes due to chronic exposure to nonionizing radiation; L82.1 Other seborrheic keratosis; D18.01 Hemangioma of skin and subcutaneous tissue; D23.72 Other benign neoplasm of skin of left lower limb, including hip | CPT/HCPCS: 17000; 17110; 99204 ==

== ENCOUNTER → 2023-06-02 12:53 | Outpatient (BNVA) | payer MEDICARE, SELFPAY | PROVIDERS: PCP Family Medicine; Visit Provider Podiatrist Foot & Ankle Surgery | DX: L60.3 Nail dystrophy (principal); E11.649 Type 2 diabetes mellitus with hypoglycemia without coma; G62.9 Polyneuropathy, unspecified; L84 Corns and callosities; E11.42 Type 2 diabetes mellitus with diabetic polyneuropathy | CPT/HCPCS: 11055; 11721 ==

== ENCOUNTER → 2023-08-25 14:37 | Outpatient (BNVA) | payer MEDICARE, SELFPAY | PROVIDERS: PCP Family Medicine; Visit Provider Podiatrist Foot & Ankle Surgery | DX: L60.3 Nail dystrophy (principal); E11.649 Type 2 diabetes mellitus with hypoglycemia without coma; G62.9 Polyneuropathy, unspecified; L84 Corns and callosities | CPT/HCPCS: 11056; 11721 ==

== ENCOUNTER 2023-10-13 13:25 | Outpatient (RCR) | payer MEDICARE, SELFPAY | END 2023-11-07 23:59 | disposition home or self-care (01) | LOC: SST 13:25 | PROVIDERS: PCP Family Medicine; Visit Provider Psychiatry & Neurology Neurology | DX: R13.10 Dysphagia, unspecified (principal); G20.A1 Parkinson's disease without dyskinesia, without mention of fluctuations; F09 Unspecified mental disorder due to known physiological condition | CPT/HCPCS: 92526; 92610 ==

== ENCOUNTER 2023-11-08 06:00 | Outpatient (RCR) | payer MEDICARE, SELFPAY | END 2023-12-08 23:59 | disposition home or self-care (01) | LOC: SST 06:00 | PROVIDERS: PCP Family Medicine; Visit Provider Psychiatry & Neurology Neurology | DX: R13.10 Dysphagia, unspecified (principal) | CPT/HCPCS: 92526; 97129 ==

== ENCOUNTER 2023-12-09 06:00 | Outpatient (RCR) | payer MEDICARE, SELFPAY | END 2024-01-08 23:59 | disposition home or self-care (01) | LOC: SST 06:00 | PROVIDERS: PCP Family Medicine; Visit Provider Psychiatry & Neurology Neurology | DX: G20.A1 Parkinson's disease without dyskinesia, without mention of fluctuations (principal); R13.10 Dysphagia, unspecified | CPT/HCPCS: 92526; 92610 ==

== ENCOUNTER → 2023-12-27 13:15 | Outpatient (BNVA) | payer MEDICARE, SELFPAY | PROVIDERS: PCP Family Medicine; Visit Provider Podiatrist Foot & Ankle Surgery | DX: L60.3 Nail dystrophy (principal); E11.649 Type 2 diabetes mellitus with hypoglycemia without coma; G62.9 Polyneuropathy, unspecified; L84 Corns and callosities; R26.89 Other abnormalities of gait and mobility; Z91.81 History of falling; M25.371 Other instability, right ankle; E11.42 Type 2 diabetes mellitus with diabetic polyneuropathy; M21.612 Bunion of left foot; M21.611 Bunion of right foot | CPT/HCPCS: 11056; 11721; 99213 ==

== ENCOUNTER 2024-01-09 06:00 | Outpatient (RCR) | payer MEDICARE, SELFPAY | END 2024-02-07 23:59 | disposition home or self-care (01) | LOC: SST 06:00 | PROVIDERS: PCP Family Medicine; Visit Provider Psychiatry & Neurology Neurology | DX: G20.A1 Parkinson's disease without dyskinesia, without mention of fluctuations (principal); R13.10 Dysphagia, unspecified | CPT/HCPCS: 92507; 92526 ==

== ENCOUNTER → 2024-03-28 11:17 | Outpatient (BNVA) | payer MEDICARE, SELFPAY | PROVIDERS: PCP Family Medicine; Visit Provider Podiatrist Foot & Ankle Surgery | DX: L60.3 Nail dystrophy (principal); E11.649 Type 2 diabetes mellitus with hypoglycemia without coma; G62.9 Polyneuropathy, unspecified; Z91.81 History of falling; M25.371 Other instability, right ankle; L84 Corns and callosities; R26.89 Other abnormalities of gait and mobility; E11.49 Type 2 diabetes mellitus with other diabetic neurological complication; M21.611 Bunion of right foot; M21.612 Bunion of left foot | CPT/HCPCS: 11056; 11721 ==

== ENCOUNTER → 2024-06-01 14:51 | Outpatient (BNVA) | payer MEDICARE, SELFPAY | PROVIDERS: PCP Family Medicine; Visit Provider Nurse Practitioner Family | DX: L21.8 Other seborrheic dermatitis (principal); L30.0 Nummular dermatitis; L82.1 Other seborrheic keratosis; D18.01 Hemangioma of skin and subcutaneous tissue; D48.5 Neoplasm of uncertain behavior of skin | CPT/HCPCS: 11102; 99214 ==

== ENCOUNTER 2024-06-08 15:36 | Outpatient (CLI) | payer MEDICARE, SELFPAY ==
--- NOTE | 2024-06-08 15:39 | CT_ITS ---
WS: [id number] CT HEAD TECHNIQUE: Noncontrast CT of the head obtained from the skullbase to the vertex. CLINICAL INFORMATION: DEMENTIA COMPARISON: 2021 DLP: 1163.[address] scans at [facility] use at least one of these dose optimization techniques: automated e xposure control; mA and/or kV adjustment per patient size (includes targeted exams where dose is matc hed to clinical indication); or iterative reconstruction. FINDINGS: No evidence of intracranial hemorrhage or mass effect. Ventricular system and basal cisterns are mitchell nt. Mild small vessel changes with moderate parenchymal volume loss. No extra-axial fluid collections . No evidence of mass or mass effect. Vascular calcification. Paranasal sinuses and mastoid air cells are well aerated. .Normal visualized soft tissues. CT/CT head wo con* [id number] IMPRESSION: 1. No evidence of intracranial hemorrhage or mass effect. 2. Mild small vessel changes with moderate parenchymal volume loss. This is sl ightly progressed since 2021. 3. No acute intracranial findings.
== END 2024-06-08 15:37 | disposition home or self-care (01) ==
PROVIDERS: PCP Family Medicine; Visit Provider Psychiatry & Neurology Neurology
DX: G24.9 Dystonia, unspecified (principal); R26.9 Unspecified abnormalities of gait and mobility; R93.0 Abnormal findings on diagnostic imaging of skull and head, not elsewhere classified
CPT/HCPCS: 70450

== ENCOUNTER 2024-07-28 12:43 | Outpatient (CLI) | payer MEDICARE, SELFPAY ==
--- NOTE | 2024-07-28 12:48 | USR_ITS ---
PROCEDURE INFORMATION: Exam: US Retroperitoneal, Complete, Kidneys and Bladder Exam date and time: 07/28/2024 1:17 PM Age: 73 years old Clinical indication: Condition or disease; Other: Neurogenic bladder TECHNIQUE: Imaging protocol: Real-time ultrasound of the retroperitoneum with image documentation. Complete exam focused on the bilateral kidneys and urinary bladder. COMPARISON: CT abdomen pelvis w con* [id number] 08/21/2021 12:28 PM FINDINGS: Right kidney: Normal. No stones. No hydronephrosis. Left kidney: Normal. No stones. No hydronephrosis. Urinary bladder: Prevoid bladder volume 160 cc. The patient could not void at the time of the exam.. Prostate: Prominent prostate, 4.6 cm in diameter. Prostatic calcifications noted. US/US renal BI* [id number] IMPRESSION: Slightly enlarged prostate.
== END 2024-07-28 12:44 | disposition home or self-care (01) ==
PROVIDERS: PCP Family Medicine; Visit Provider Nurse Practitioner Family
DX: N31.9 Neuromuscular dysfunction of bladder, unspecified (principal); N42.89 Other specified disorders of prostate
CPT/HCPCS: 76770

== ENCOUNTER → 2024-07-31 14:24 | Outpatient (BNVA) | payer MEDICARE, SELFPAY | PROVIDERS: PCP Family Medicine; Visit Provider Podiatrist Foot & Ankle Surgery | DX: E11.42 Type 2 diabetes mellitus with diabetic polyneuropathy (principal); L60.3 Nail dystrophy; L84 Corns and callosities; E11.649 Type 2 diabetes mellitus with hypoglycemia without coma; G62.9 Polyneuropathy, unspecified; Z91.81 History of falling; M25.371 Other instability, right ankle; R26.89 Other abnormalities of gait and mobility | CPT/HCPCS: 11056; 11721 ==

== ENCOUNTER → 2024-10-31 13:08 | Outpatient (BNVA) | payer MEDICARE, SELFPAY | PROVIDERS: PCP Family Medicine; Visit Provider Podiatrist Foot & Ankle Surgery | DX: M79.671 Pain in right foot (principal); G57.61 Lesion of plantar nerve, right lower limb; E11.8 Type 2 diabetes mellitus with unspecified complications; L60.3 Nail dystrophy; E11.649 Type 2 diabetes mellitus with hypoglycemia without coma; G62.9 Polyneuropathy, unspecified; Z91.81 History of falling; M25.371 Other instability, right ankle; L84 Corns and callosities; R26.89 Other abnormalities of gait and mobility | CPT/HCPCS: 73630; 99214 ==

== ENCOUNTER 2024-11-23 15:07 | Outpatient (CLI) | payer MEDICARE, SELFPAY ==
--- NOTE | 2024-11-23 15:30 | US_ITS ---
WS: [id number] ULTRASOUND SOFT TISSUES RIGHT foot HISTORY: pain in right 2nd innerspace COMPARISON: None available. TECHNIQUE: 2-D and color Doppler imaging is submitted. Ultrasound of the RIGHT second intertarsal space is unremarkable. No definite neuroma is identified. The adjacent intertarsal spaces are similar. US/US soft tissue/extremity 10963 IMPRESSION: No soft tissue mass in the second intertarsal space RIGHT foot.
== END 2024-11-23 15:08 | disposition home or self-care (01) ==
LOC: RAD 15:09
PROVIDERS: PCP Family Medicine; Visit Provider Podiatrist Foot & Ankle Surgery
DX: G57.61 Lesion of plantar nerve, right lower limb (principal)
CPT/HCPCS: 76882

== ENCOUNTER → 2025-02-06 13:36 | Outpatient (BNVA) | payer MEDICARE, SELFPAY | PROVIDERS: PCP Family Medicine; Visit Provider Podiatrist Foot & Ankle Surgery | DX: E11.42 Type 2 diabetes mellitus with diabetic polyneuropathy (principal); L60.3 Nail dystrophy; L84 Corns and callosities; E11.649 Type 2 diabetes mellitus with hypoglycemia without coma; G62.9 Polyneuropathy, unspecified; Z91.81 History of falling; M25.371 Other instability, right ankle; R26.89 Other abnormalities of gait and mobility; M77.41 Metatarsalgia, right foot | CPT/HCPCS: 11056; 11721; 99213 ==

== ENCOUNTER 2025-03-18 23:38 | Emergency (ER) | payer MEDICARE, SELFPAY ==
--- OUTSIDE RECORDS SUMMARY | 2025-03-12 11:00 | XMS_ITS ---
Author Organization [employer] [facility] [employer] Address [address] [facility] [place] [address] Care Team Providers Care Weld Engineer Name Role Phone Georges LEE, Saúl Primary Care Provider EMMIE Laguerre Unavailable [phone] REASON FOR VISIT 6 mo w/ bmp/psa Encounters Encounter Location Date Provider Diagnosis [facility] [address] [facility] [place] [address] 03/12/2025 EMMIE CHILEL Plan Of Treatment No Information Progress Notes * Kali CASTRODOB:[birth year] (74 yo M)Acc No.[id number]:03/12/2025 Progress Notes Patient: Kali COVARRUBIAS Provider: Amy Chilel APRN :1950 A ge:74 Y S ex:Male Date:03/12/2025 Address:[address] [place] [address] [address], [place], [id number] Pcp:Saúl Su MD Subjective: * Chief Complaints: * 1 . 6 mo w/ bmp/psa. * Medical History: Objective: * Vitals: Assessment: Plan: * Treatment: * Billing Information: * Visit Code: * Procedure Codes: * Electronic signature of MISAEL CHILEL APRN on 03/18/2025 at 11:48 PM HYDROGEN PLANT OPERATOR Sign off status: Pending * Provider: Amy Chilel APRN Date: 05/12/2024 Generated for Troy becker/Kimberli/Jamee on: 1 05/18/2024 11:48 PM HYDROGEN PLANT OPERATOR
--- OUTSIDE RECORDS SUMMARY | 2025-03-18 17:47 | XMS_ITS | Continuity of Care Document ---
Author Name [facility] Organization [facility] Care Team Providers Care Test Center Manager Name Role Phone [facility] Unavailable Unavailable Problems Combined list of problems from [facility] and [facility] facilities. It does not include entries that were removed or entered in error. Problem Status Onset Date Problem Type Date of Resolution Comments Source Chronic Obstructive Pulmonary Disease * (ICD-9-CM 496.) Active Condition [facility] Elevated Prostate Specific Antigen (PSA) (ICD-9-CM 790.93) Active Condition [facility] GERD * (ICD-9-CM 530.81) Active Condition [facility] Hemorrhoids * (ICD-9-CM 455.6) Active Condition [facility] Hyperglycemia * (ICD-9-CM 790.29) Active Condition [facility] Hyperlipidemia * (ICD-9-CM 272.4) Active Condition [facility] LBP * (ICD-9-CM 724.2) Active Condition [facility] 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) Active Condition [facility] Obesity * (ICD-9-CM 278.00) Active Condition [facility] Osteoarthritis * (ICD-9-CM 715.90) Active Condition Feb 05 Entered By: SOLEDAD JJ Comment: Bilateral thumbs [facility] Personal History of Surgery to other Organs (ICD-9-CM V15.29) Active Condition Feb 05 Entered By: SOLEDAD JJ Comment: s/p Open cholecystectomy 1994; Colonoscopy 2007 [facility] Medications Combined list of outpatient medications from [facility] and [facility] facilities.Medications provided include 1) outpatient medications from the last 15 months, and 2) patient-reported medications. Medication Details Route Status Indication(s) Patie nt Instructions Prescription Expires Prescription Number Last Dispense Date Ordering Provider Order Date Order Qty Source CALCIUM CARBONATE TAB TAKE 500MG BY MOUTH ONCE DAILY ORAL ACTIVE VASU JJ 2008 [facility] FISH OIL CAP/TAB 1 CAP BY MOUTH ONCE DAILY ORAL ACTIVE VASU JJ S 2008 [facility] NIACIN 500MG TAB TAKE ONE TABLET BY MOUTH ONCE DAILY ORAL ACTIVE VASU JJ S 2008 [facility] SILDENAFIL CITRATE 25MG TAB TAKE ONE TABLET BY MOUTH 1 TIME PER WEEK ORAL ACTIVE VASU JJ S 2008 [facility] Immunizations Combined list of available immunizations from the Department of Defense and Veterans Affairs facilities. 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 Comments Source COVID-19 (MODERNA), MRNA, LNP-S, PF, 10 MCG/0.2 ML (AGES 12+ YEARS) 7 2024 334 complet ed HISTORICA L INFORMATI ON - FROM OTHER [facility] COVID-19 (MODERNA), MRNA, LNP-S, PF, 50 MCG/0.5 ML (AGES 12+ YEARS) 6 2023 312 complet ed HISTORICA L INFORMATI ON - [facility] COVID-19 (GrexIt), MRNA, LNP-S, PF, JUVE-SUCROSE, 30 MCG/0.3 ML (AGES 12+ YEARS) 5 2022 309 complet ed HISTORICA L INFORMATI ON - FROM OTHER [facility] COVID-19 (GrexIt), MRNA, LNP-S, PF, 30 MCG/0.3 ML DOSE, JUVE-SUCROSE (AGES 12+ YEARS) 4 2021 217 complet ed HISTORICA L INFORMATI ON - FROM OTHER [facility] COVID-19 (GrexIt), MRNA, LNP-S, PF, 30 MCG/0.3 ML DOSE 3 2020 208 complet ed HISTORICA L INFORMATI ON - FROM OTHER [facility] COVID-19 (GrexIt), MRNA, LNP-S, PF, 30 MCG/0.3 ML DOSE 2 2020 208 complet ed HISTORICA L INFORMATI ON - FROM OTHER [facility] COVID-19 (PFIZER), MRNA, LNP-S, PF, 30 MCG/0.3 ML DOSE 1 2020 208 complet ed HISTORICA L INFORMATI ON - FROM OTHER [facility] PNEUMOCOCC[facility] CONJUGATE PCV 13 2 2014 133 complet ed HISTORICA L INFORMATI ON - FROM OTHER REGISTRY, [facility] PNEUMOCOCCAL POLYSACCHARID E PPV23 1 2011 33 complet ed HISTORICA L INFORMATI ON - FROM OTHER REGISTRY, [facility] N TDAP 1 2010 115 complet ed HISTORICA L INFORMATI ON - FROM OTHER REGISTRY, [facility] TD(ADULT) UNSPECIFIED FORMULATION 2003 139 complet ed [facility]ODY RODRIGUEZ [facility] Results Combined list of recent chemistry, hematology and other laboratory results from Department of Defense and Veterans Affairs, ranging from 15 months to all on record, depending upon the facility. Order Name Results Value Reference Range Date Interpretation Specimen Comments Source URINALYSIS W/O REFLEX CX (STL-PB) COLOR OF URINE Yellow 03/15 Specimen Type: URINE No comment entered. Ordering Provider: ELENO LUNA III Report Released Date/Time : Mar 15, 2025 10:36 AM Reporting Lab: [place] [facility] [address] [place] [address] Performin g Lab: [place] [facility] [address] [place] [address] [facility] URINALYSIS W/O REFLEX CX (STL-PB) BILIRUBIN.TO SABINE [PRESENCE] IN URINE BY TEST STRIP NEGATIV Emg/dL 03/15 Specimen Type: URINE No comment entered. Ordering Provider: ELENO LUNA III Report Released Date/Time : Mar 15, 2025 10:36 AM Reporting Lab: [place] [facility] [address] [place] [address] Performin g Lab: [place] [facility] [address] [place] [address] [facility] URINALYSIS W/O REFLEX CX (STL-PB) PH OF URINE BY TEST STRIP 6.0 5.0 - 8.0 03/15 Specimen Type: URINE No comment entered. Ordering Provider: ELENO LUNA III Report Released Date/Time : Mar 15, 2025 10:36 AM Reporting Lab: [place] [facility] [address] [place] [address] Performin g Lab: [place] [facility] [address] [place] [address] [facility] URINALYSIS W/O REFLEX CX (STL-PB) LEUKOCYTES [#/AREA] IN URINE SEDIMENT BY MICROSCOPY HIGH POWER FIELD 63 /[HPF] 0 - 5 03/15 H Specimen Type: URINE No comment entered. Ordering Provider: ELENO LUNA III Report Released Date/Time : Mar 15, 2025 10:36 AM Reporting Lab: [place] [facility] [address] [place] [address] Performin g Lab: [place] [facility] [address] [place] [address] [facility] URINALYSIS W/O REFLEX CX (STL-PB) ERYTHROCYTES [#/VOLUME] IN URINE SEDIMENT BY MICROSCOPY HIGH POWER FIELD 5 /[HPF] 0 - 5 03/15 Specimen Type: URINE No comment entered. Ordering Provider: ELENO LUNA III Report Released Date/Time : Mar 15, 2025 10:36 AM Reporting Lab: [place] [facility] [address] [place] [address] Performin g Lab: [place] [facility] [address] [place] [address] [facility] URINALYSIS W/O REFLEX CX (STL-PB) APPEARANCE OF URINE TURBID 03/15 H Specimen Type: URINE No comment entered. Ordering Provider: ELENO LUNA III Report Released Date/Time : Mar 15, 2025 10:36 AM Reporting Lab: [place] [facility] [address] [place] [address] Performin g Lab: [place] [facility] [address] [place] [address] [facility] URINALYSIS W/O REFLEX CX (STL-PB) NITRITE [PRESENCE] IN URINE BY TEST STRIP 2+mg/dL 03/15 H Specimen Type: URINE No comment entered. Ordering Provider: ELENO LUNA III Report Released Date/Time : Mar 15, 2025 10:36 AM Reporting Lab: [place] [facility] [address] [place] [address] Performin g Lab: [place] [facility] [address] [place] [address] [facility] URINALYSIS W/O REFLEX CX (STL-PB) BACTERIA [PRESENCE] IN URINE SEDIMENT BY LIGHT MICROSCOPY MODERAT E/[HPF] 03/15 H Specimen Type: URINE No comment entered. Ordering Provider: ELENO LUNA III Report Released Date/Time : Mar 15, 2025 10:36 AM Reporting Lab: [place] [facility] [address] [place] [address] Performin g Lab: [place] [facility] [address] [place] [address] [facility] URINALYSIS W/O REFLEX CX (STL-PB) EPITHELIAL CELLS [#/AREA] IN URINE SEDIMENT BY MICROSCOPY LOW POWER FIELD 1 /[HPF] 0 - 5 03/15 Specimen Type: URINE No comment entered. Ordering Provider: ELENO LUNA III Report Released Date/Time : Mar 15, 2025 10:36 AM Reporting Lab: [place] [facility] [address] [place] [address] Performin g Lab: [place] [facility] [address] [place] [address] [facility] URINALYSIS W/O REFLEX CX (STL-PB) MUCUS [PRESENCE] IN URINE SEDIMENT BY LIGHT MICROSCOPY RARE/[L PF] 03/15 Specimen Type: URINE No comment entered. Ordering Provider: ELENO LUNA III Report Released Date/Time : Mar 15, 2025 10:36 AM Reporting Lab: [place] [facility] [address] [place] [address] Performin g Lab: [place] [facility] [address] [place] [address] [facility] URINALYSIS W/O REFLEX CX (STL-PB) GLUCOSE [MASS/VOLUME ] IN URINE BY TEST STRIP NORMALm g/dL 03/15 Specimen Type: URINE No comment entered. Ordering Provider: ELENO LUNA III Report Released Date/Time : Mar 15, 2025 10:36 AM Reporting Lab: [place] [facility] [address] [place] [address] Performin g Lab: [place] [facility] [address] [place] [address] [facility] URINALYSIS W/O REFLEX CX (STL-PB) PROTEIN [MASS/VOLUME ] IN URINE BY TEST STRIP NEGATIV Emg/dL 03/15 Specimen Type: URINE No comment entered. Ordering Provider: ELENO LUNA III Report Released Date/Time : Mar 15, 2025 10:36 AM Reporting Lab: [place] [facility] [address] [place] [address] Performin g Lab: [place] [facility] [address] [place] [address] [facility] URINALYSIS W/O REFLEX CX (STL-PB) URN.UROBILIN OGEN NORMALm g/dL 03/15 Specimen Type: URINE No comment entered. Ordering Provider: ELENO LUNA III Report Released Date/Time : Mar 15, 2025 10:36 AM Reporting Lab: [place] [facility] [address] [place] [address] Performin g Lab: [place] [facility] [address] [place] [address] [facility] URINALYSIS W/O REFLEX CX (STL-PB) HEMOGLOBIN [MASS/VOLUME ] IN URINE BY TEST STRIP NEGATIV Emg/dL 03/15 Specimen Type: URINE No comment entered. Ordering Provider: ELENO LUNA III Report Released Date/Time : Mar 15, 2025 10:36 AM Reporting Lab: [place] [facility] [address] [place] [address] Performin g Lab: [place] [facility] [address] [place] [address] [facility] URINALYSIS W/O REFLEX CX (STL-PB) KETONES [MASS/VOLUME ] IN URINE BY TEST STRIP NEGATIV Emg/dL 03/15 Specimen Type: URINE No comment entered. Ordering Provider: ELENO LUNA III Report Released Date/Time : Mar 15, 2025 10:36 AM Reporting Lab: [place] [facility] [address] [place] [address] Performin g Lab: [place] [facility] [address] [place] [address] [facility] URINALYSIS W/O REFLEX CX (STL-PB) URN.LEUK.EST . 500 03/15 H Specimen Type: URINE No comment entered. Ordering Provider: ELENO LUNA III Report Released Date/Time : Mar 15, 2025 10:36 AM Reporting Lab: [place] [facility] [address] [place] [address] Performin g Lab: [place] [facility] [address] [place] [address] [facility] URINALYSIS W/O REFLEX CX (STL-PB) SPECIFIC GRAVITY OF URINE 1.024 1.005 - 1.029 03/15 Specimen Type: URINE No comment entered. Ordering Provider: ELENO LUNA III Report Released Date/Time : Mar 15, 2025 10:36 AM Reporting Lab: [place] [facility] [address] [place] [address] Performin g Lab: [place] [facility] [address] [place] [address] [facility] MAGNESIUM MAGNESIUM [MASS/VOLUME ] IN SERUM OR PLASMA 2.34 mg/dL 1.6 - 2.6 03/14 Specimen Type: PLASMA No comment entered. Ordering Provider: ELENO LUNA III Report Released Date/Time : Mar 14, 2025 01:10 PM Reporting Lab: [place] [facility] [address] [place] [address] Performin g Lab: [place] [facility] [address] [place] [address] [facility] HGA1C HEMOGLOBIN A1C/HEMOGLOB IN.TOTAL IN BLOOD 5.8 4.0 - 6.0 03/14 Specimen Type: BLOOD No comment entered. Ordering Provider: ELENO LUNA III Report Released Date/Time : Mar 14, 2025 01:10 PM Reporting Lab: [place] [facility] [address] [place] [address] Performin g Lab: [place] [facility] [address] [place] [address] [facility] CHOLESTEROL PANEL (PB) CHOLESTEROL [MASS/VOLUME ] IN SERUM OR PLASMA 155 mg/dL 0 - 200 03/14 Specimen Type: PLASMA No comment entered. Ordering Provider: ELENO LUNA III Report Released Date/Time : Mar 14, 2025 01:10 PM Reporting Lab: [place] [facility] [address] [place] [address] Performin g Lab: [place] [facility] [address] [place] [address] [facility] CHOLESTEROL PANEL (PB) TRIGLYCERIDE [MASS/VOLUME ] IN SERUM OR PLASMA 87 mg/dL 0 - 150 03/14 Specimen Type: PLASMA No comment entered. Ordering Provider: ELENO LUNA III Report Released Date/Time : Mar 14, 2025 01:10 PM Reporting Lab: [place] [facility] [address] [place] [address] Performin g Lab: [place] [facility] [address] [place] [address] [facility] CHOLESTEROL PANEL (PB) CHOLESTEROL IN LDL [MASS/VOLUME ] IN SERUM OR PLASMA BY CALCULATION 86.6 mg/dL 03/14 Specimen Type: PLASMA No comment entered. Ordering Provider: ELENO LUNA III Report Released Date/Time : Mar 14, 2025 01:10 PM Reporting Lab: [place] [facility] [address] [place] [address] Performin g Lab: [place] [facility] [address] [place] [address] [facility] CHOLESTEROL PANEL (PB) CHOLESTEROL IN HDL [MASS/VOLUME ] IN SERUM OR PLASMA 51.0 mg/dL 40 03/14 Specimen Type: PLASMA No comment entered. Ordering Provider: ELENO LUNA III Report Released Date/Time : Mar 14, 2025 01:10 PM Reporting Lab: [place] [facility] [address] [place] [address] Performin g Lab: [place] [facility] [address] [place] [address] [facility] CHOLESTEROL PANEL (PB) CHOLESTEROL IN HDL/CHOLESTE ROL.TOTAL [MASS RATIO] IN SERUM OR PLASMA 32.9 25 03/14 Specimen Type: PLASMA No comment entered. Ordering Provider: ELENO LUNA III Report Released Date/Time : Mar 14, 2025 01:10 PM Reporting Lab: [place] [facility] [address] [place] [address] Performin g Lab: [place] [facility] [address] [place] [address] [facility] FOLATE (PB) FOLATE [MASS/VOLUME ] IN SERUM OR PLASMA 8.6 ng/mL 7 - 20 03/14 Specimen Type: SERUM No comment entered. Ordering Provider: ELENO LUNA III Report Released Date/Time : Mar 14, 2025 01:10 PM Reporting Lab: [place] [facility] [address] [place] [address] Performin g Lab: [place] [facility] [address] [place] [address] [facility] B12 COBALAMIN (VITAMIN B12) [MASS/VOLUME ] IN SERUM OR PLASMA >2000pg /mL 213 - 816 03/14 H Specimen Type: SERUM No comment entered. Ordering Provider: ELENO LUNA III Report Released Date/Time : Mar 14, 2025 01:10 PM Reporting Lab: [place] [facility] [address] [place] [address] Performin g Lab: [place] [facility] [address] [place] [address] [facility] VITAMIN D, 25-HYDROXY 25-HYDROXYVI TAMIN D3 [MASS/VOLUME ] IN SERUM OR PLASMA 31.0 ng/mL 30 - 96 03/14 Specimen Type: SERUM No comment entered. Ordering Provider: ELENO LUNA III Report Released Date/Time : Mar 14, 2025 01:10 PM Reporting Lab: [place] [facility] [address] [place] [address] Performin g Lab: [place] [facility] [address] [place] [address] [facility] TSH (MA-PB) THYROTROPIN [UNITS/VOLUM E] IN SERUM OR PLASMA 0.405 u[IU]/m L 0.47 - 5 03/14 L Specimen Type: SERUM No comment entered. Ordering Provider: ELENO LUNA III Report Released Date/Time : Mar 14, 2025 01:10 PM Reporting Lab: [place] [facility] [address] [place] [address] Performin g Lab: [place] [facility] [address] [place] [address] [facility] TSH (MA-PB) THYROXINE (T4) FREE [MASS/VOLUME ] IN SERUM OR PLASMA 1.10 ng/dL 0.7 - 1.48 03/14 Specimen Type: SERUM No comment entered. Ordering Provider: ELENO LUNA III Report Released Date/Time : Mar 14, 2025 01:10 PM Reporting Lab: [place] [facility] [address] [place] [address] Performin g Lab: [place] [facility] [address] [place] [address] [facility] CBC LEUKOCYTES [#/VOLUME] IN BLOOD BY AUTOMATED COUNT 8.4 10*3/uL 3.6 - 11.2 03/14 Specimen Type: BLOOD No comment entered. Ordering Provider: ELENO LUNA III Report Released Date/Time : Mar 14, 2025 01:10 PM Reporting Lab: [place] [facility] [address] [place] [address] Performin g Lab: [place] [facility] [address] [place] [address] [facility] CBC ERYTHROCYTES [#/VOLUME] IN BLOOD BY AUTOMATED COUNT 5.08 10*6/uL 4.10 - 5.70 03/14 Specimen Type: BLOOD No comment entered. Ordering Provider: ELENO LUNA III Report Released Date/Time : Mar 14, 2025 01:10 PM Reporting Lab: [place] [facility] [address] [place] [address] Performin g Lab: [place] [facility] [address] [place] [address] [facility] CBC HEMOGLOBIN [MASS/VOLUME ] IN BLOOD 15.8 g/dL 13.1 - 16.8 03/14 Specimen Type: BLOOD No comment entered. Ordering Provider: ELENO LUNA III Report Released Date/Time : Mar 14, 2025 01:10 PM Reporting Lab: [place] [facility] [address] [place] [address] Performin g Lab: [place] [facility] [address] [place] [address] [facility] CBC HEMATOCRIT [VOLUME FRACTION] OF BLOOD BY CALCULATION 45.8 38.2 - 48.4 03/14 Specimen Type: BLOOD No comment entered. Ordering Provider: ELENO LUNA III Report Released Date/Time : Mar 14, 2025 01:10 PM Reporting Lab: [place] [facility] [address] [place] [address] Performin g Lab: [place] [facility] [address] [place] [address] [facility] CBC MCV [ENTITIC MEAN VOLUME] IN RED BLOOD CELLS BY AUTOMATED COUNT 90.2 fL 80.0 - 100.0 03/14 Specimen Type: BLOOD No comment entered. Ordering Provider: ELENO LUNA III Report Released Date/Time : Mar 14, 2025 01:10 PM Reporting Lab: [place] [facility] [address] [place] [address] Performin g Lab: [place] [facility] [address] [place] [address] [facility] CBC MCH [ENTITIC MASS] BY AUTOMATED COUNT 31.1 pg 27.0 - 34.0 03/14 Specimen Type: BLOOD No comment entered. Ordering Provider: ELENO LUNA III Report Released Date/Time : Mar 14, 2025 01:10 PM Reporting Lab: [place] [facility] [address] [place] [address] Performin g Lab: [place] [facility] [address] [place] [address] [facility] CBC MCHC [ENTITIC MASS/VOLUME] IN RED BLOOD CELLS BY AUTOMATED COUNT 34.5 g/dL 33.0 - 36.0 03/14 Specimen Type: BLOOD No comment entered. Ordering Provider: ELENO LUNA III Report Released Date/Time : Mar 14, 2025 01:10 PM Reporting Lab: [place] [facility] [address] [place] [address] Performin g Lab: [place] [facility] [address] [place] [address] [facility] CBC PLATELETS [#/VOLUME] IN BLOOD BY AUTOMATED COUNT 243 10*3/uL 150 - 400 03/14 Specimen Type: BLOOD No comment entered. Ordering Provider: ELENO LUNA III Report Released Date/Time : Mar 14, 2025 01:10 PM Reporting Lab: [place] [facility] [address] [place] [address] Performin g Lab: [place] [facility] [address] [place] [address] [facility] CBC PLATELET [ENTITIC MEAN VOLUME] IN BLOOD BY AUTOMATED COUNT 10.5 fL 7.5 - 11.2 03/14 Specimen Type: BLOOD No comment entered. Ordering Provider: ELENO LUNA III Report Released Date/Time : Mar 14, 2025 01:10 PM Reporting Lab: [place] [facility] [address] [place] [address] Performin g Lab: [place] [facility] [address] [place] [address] [facility] CBC ERYTHROCYTE [DISTWIDTH] IN RED BLOOD CELLS BY AUTOMATED COUNT 14.0 11.8 - 15.1 03/14 Specimen Type: BLOOD No comment entered. Ordering Provider: ELENO LUNA III Report Released Date/Time : Mar 14, 2025 01:10 PM Reporting Lab: [place] [facility] [address] [place] [address] Performin g Lab: [place] [facility] [address] [place] [address] [facility] CBC LYMPHOCYTES/ LEUKOCYTES IN BLOOD BY AUTOMATED COUNT 25.2 03/14 Specimen Type: BLOOD No comment entered. Ordering Provider: ELENO LUNA III Report Released Date/Time : Mar 14, 2025 01:10 PM Reporting Lab: [place] [facility] [address] [place] [address] Performin g Lab: [place] [facility] [address] [place] [address] [facility] CBC MONOCYTES/LE UKOCYTES IN BLOOD BY AUTOMATED COUNT 4.4 03/14 Specimen Type: BLOOD No comment entered. Ordering Provider: ELENO LUNA III Report Released Date/Time : Mar 14, 2025 01:10 PM Reporting Lab: [place] [facility] [address] [place] [address] 8 Performin g Lab: [place] [facility] [address] [place] [address] [facility] CBC NEUTROPHILS/ LEUKOCYTES IN BLOOD BY AUTOMATED COUNT 68.5 03/14 Specimen Type: BLOOD No comment entered. Ordering Provider: ELENO LUNA III Report Released Date/Time : Mar 14, 2025 01:10 PM Reporting Lab: [place] [facility] [address] [place] [address] 8 Performin g Lab: [place] [facility] [address] [place] [address] [facility] CBC EOSINOPHILS/ LEUKOCYTES IN BLOOD BY AUTOMATED COUNT 1.0 03/14 Specimen Type: BLOOD No comment entered. Ordering Provider: ELENO LUNA III Report Released Date/Time : Mar 14, 2025 01:10 PM Reporting Lab: [place] [facility] [address] [place] [address] 8 Performin g Lab: [place] [facility] [address] [place] [address] 8 [facility] CBC BASOPHILS/LE UKOCYTES IN BLOOD BY AUTOMATED COUNT 0.7 03/14 Specimen Type: BLOOD No comment entered. Ordering Provider: ELENO LUNA III Report Released Date/Time : Mar 14, 2025 01:10 PM Reporting Lab: [place] [facility] [address] [place] [address] 8 Performin g Lab: [place] [facility] [address] [place] [address] 8 [facility] CBC LYMPHOCYTES [#/VOLUME] IN BLOOD BY AUTOMATED COUNT 2.12 10*3/uL 0.77 - 4.50 03/14 Specimen Type: BLOOD No comment entered. Ordering Provider: ELENO LUNA III Report Released Date/Time : Mar 14, 2025 01:10 PM Reporting Lab: [place] [facility] [address] [place] [address] 8 Performin g Lab: [place] [facility] [address] [place] [address] 8 [facility] CBC MONOCYTES [#/VOLUME] IN BLOOD BY AUTOMATED COUNT 0.37 10*3/uL 0.19 - 0.8 03/14 Specimen Type: BLOOD No comment entered. Ordering Provider: ELENO LUNA III Report Released Date/Time : Mar 14, 2025 01:10 PM Reporting Lab: [place] [facility] [address] [place] [address] 8 Performin g Lab: [place] [facility] [address] [place] [address] 8 [facility] CBC NEUTROPHILS [#/VOLUME] IN BLOOD BY AUTOMATED COUNT 5.77 10*3/uL 2.10 - 8.00 03/14 Specimen Type: BLOOD No comment entered. Ordering Provider: ELENO LUNA E III Report Released Date/Time : Mar 14, 2025 01:10 PM Reporting Lab: [place] [facility] [address] [place] [address] 8 Performin g Lab: [place] [facility] [address] [place] [address] 8 [facility] CBC EOSINOPHILS [#/VOLUME] IN BLOOD BY AUTOMATED COUNT 0.08 10*3/uL 0.00 - 0.60 03/14 Specimen Type: BLOOD No comment entered. Ordering Provider: ELENO LUNA E III Report Released Date/Time : Mar 14, 2025 01:10 PM Reporting Lab: [place] [facility] [address] [place] [address] 8 Performin g Lab: [place] [facility] [address] [place] [address] 8 [facility] CBC BASOPHILS [#/VOLUME] IN BLOOD BY AUTOMATED COUNT 0.06 10*3/uL 0.00 - 0.20 03/14 Specimen Type: BLOOD No comment entered. Ordering Provider: ELENO LUNA E III Report Released Date/Time : Mar 14, 2025 01:10 PM Reporting Lab: [place] [facility] [address] [place] [address] 8 Performin g Lab: [place] [facility] [address] [place] [address] 8 [facility] CBC IMMATURE GRANULOCYTES /LEUKOCYTES IN BLOOD BY AUTOMATED COUNT 0.2 03/14 Specimen Type: BLOOD No comment entered. Ordering Provider: ELENO LUNA E III Report Released Date/Time : Mar 14, 2025 01:10 PM Reporting Lab: [place] [facility] [address] [place] [address] Performin g Lab: [place] [facility] [address] [place] [address] [facility] CBC IMMATURE GRANULOCYTES [#/VOLUME] IN BLOOD BY AUTOMATED COUNT 0.02 10*3/uL 0.00 - 0.05 03/14 Specimen Type: BLOOD No comment entered. Ordering Provider: ELENO LUNA E III Report Released Date/Time : Mar 14, 2025 01:10 PM Reporting Lab: [place] [facility] [address] [place] [address] 8 Performin g Lab: [place] [facility] [address] [place] [address] [facility] COMPREHENSI VE METABOLIC PANEL CREATININE [MASS/VOLUME ] IN SERUM OR PLASMA 0.63 mg/dL 0.7 - 1.3 03/14 L Specimen Type: PLASMA No comment entered. Ordering Provider: ELENO LUNA E III Report Released Date/Time : Mar 14, 2025 01:10 PM Reporting Lab: [place] [facility] [address] [place] [address] Performin g Lab: [place] [facility] [address] [place] [address] 8 [facility] COMPREHENSI VE METABOLIC PANEL UREA NITROGEN [MASS/VOLUME ] IN SERUM OR PLASMA 17 mg/dL 9 - 25 03/14 Specimen Type: PLASMA No comment entered. Ordering Provider: ELENO LUNA E III Report Released Date/Time : Mar 14, 2025 01:10 PM Reporting Lab: [place] [facility] [address] [place] [address] Performin g Lab: [place] [facility] [address] [place] [address] 8 [facility] COMPREHENSI VE METABOLIC PANEL GLUCOSE [MASS/VOLUME ] IN SERUM OR PLASMA 117 mg/dL 72 - 99 03/14 H Specimen Type: PLASMA No comment entered. Ordering Provider: ELENO LUNA III Report Released Date/Time : Mar 14, 2025 01:10 PM Reporting Lab: [place] [facility] [address] [place] [address] Performin g Lab: [place] [facility] [address] [place] [address] [place] [facility] COMPREHENSI VE METABOLIC PANEL SODIUM [MOLES/VOLUM E] IN SERUM OR PLASMA 142 meq/L 136 - 145 03/14 Specimen Type: PLASMA No comment entered. Ordering Provider: LUNA,HO DANDY E III Report Released Date/Time : Mar 14, 2025 01:10 PM Reporting Lab: [place] [facility] [address] [place] [address] Performin g Lab: [place] [facility] [address] [place] [address] [place] [facility] COMPREHENSI VE METABOLIC PANEL POTASSIUM [MOLES/VOLUM E] IN SERUM OR PLASMA 4.5 meq/L 3.5 - 5 03/14 Specimen Type: PLASMA No comment entered. Ordering Provider: ELENO LUNA DANDY E III Report Released Date/Time : Mar 14, 2025 01:10 PM Reporting Lab: [place] [facility] [address] [place] [address] Performin g Lab: [place] [facility] [address] [place] [address] [facility] COMPREHENSI VE METABOLIC PANEL CHLORIDE [MOLES/VOLUM E] IN SERUM OR PLASMA 107 meq/L 98 - 107 03/14 Specimen Type: PLASMA No comment entered. Ordering Provider: ELENO LUNA E III Report Released Date/Time : Mar 14, 2025 01:10 PM Reporting Lab: [place] [facility] [address] [place] [address] Performin g Lab: [place] [facility] [address] [place] [address] [facility] COMPREHENSI VE METABOLIC PANEL CARBON DIOXIDE, TOTAL [MOLES/VOLUM E] IN SERUM OR PLASMA 28 meq/L 22 - 31 03/14 Specimen Type: PLASMA No comment entered. Ordering Provider: ELENO LUNA E III Report Released Date/Time : Mar 14, 2025 01:10 PM Reporting Lab: [place] [facility] [address] [place] [address] Performin g Lab: [place] [facility] [address] [place] [address] [facility] COMPREHENSI VE METABOLIC PANEL CALCIUM [MASS/VOLUME ] IN SERUM OR PLASMA 9.4 mg/dL 8.4 - 10.4 03/14 Specimen Type: PLASMA No comment entered. Ordering Provider: ELENO LUNA E III Report Released Date/Time : Mar 14, 2025 01:10 PM Reporting Lab: [place] [facility] [address] [place] [address] Performin g Lab: [place] [facility] [address] [place] [address] [place] [facility] COMPREHENSI VE METABOLIC PANEL PROTEIN [MASS/VOLUME ] IN SERUM OR PLASMA 7.4 g/dL 6 - 8.6 03/14 Specimen Type: PLASMA No comment entered. Ordering Provider: ELENO LUNA E III Report Released Date/Time : Mar 14, 2025 01:10 PM Reporting Lab: [place] [facility] [address] [place] [address] Performin g Lab: [place] [facility] [address] [place] [address] [facility] COMPREHENSI VE METABOLIC PANEL ALBUMIN [MASS/VOLUME ] IN SERUM OR PLASMA 4.7 g/dL 3.4 - 5 03/14 Specimen Type: PLASMA No comment entered. Ordering Provider: ELENO LUNA E III Report Released Date/Time : Mar 14, 2025 01:10 PM Reporting Lab: [place] [facility] [address] [place] [address] 8 Performin g Lab: [place] [facility] [address] [place] [address] 8 [facility] COMPREHENSI VE METABOLIC PANEL BILIRUBIN.TO SABINE [MASS/VOLUME ] IN SERUM OR PLASMA 0.6 mg/dL 0.2 - 1.2 03/14 Specimen Type: PLASMA No comment entered. Ordering Provider: ELENO LUNA E III Report Released Date/Time : Mar 14, 2025 01:10 PM Reporting Lab: [place] [facility] [address] [place] [address] Performin g Lab: [place] [facility] [address] [place] [address] [facility] COMPREHENSI VE METABOLIC PANEL ALKALINE PHOSPHATASE [ENZYMATIC ACTIVITY/VOL UME] IN SERUM OR PLASMA 105 U/L 40 - 150 11/05 /2025 Specimen Type: PLASMA No comment entered. Ordering Provider: ELENO LUNA III Report Released Date/Time : Mar 14, 2025 01:10 PM Reporting Lab: [place] [facility] [address] [place] [address] Performin g Lab: [place] [facility] [address] [place] [address] [facility] COMPREHENSI VE METABOLIC PANEL ASPARTATE AMINOTRANSFE RASE [ENZYMATIC ACTIVITY/VOL UME] IN SERUM OR PLASMA 6 U/L 5 - 34 03/14 Specimen Type: PLASMA No comment entered. Ordering Provider: ELENO LUNA III Report Released Date/Time : Mar 14, 2025 01:10 PM Reporting Lab: [place] [facility] [address] [place] [address] Performin g Lab: [place] [facility] [address] [place] [address] [facility] COMPREHENSI VE METABOLIC PANEL ALANINE AMINOTRANSFE RASE [ENZYMATIC ACTIVITY/VOL UME] IN SERUM OR PLASMA <7U/L 8 - 40 03/14 L Specimen Type: PLASMA No comment entered. Ordering Provider: ELENO LUNA III Report Released Date/Time : Mar 14, 2025 01:10 PM Reporting Lab: [place] [facility] [address] [place] [address] Performin g Lab: [place] [facility] [address] [place] [address] [facility] COMPREHENSI VE METABOLIC PANEL GLOMERULAR FILTRATION RATE [VOLUME RATE/AREA] IN SERUM, PLASMA OR BLOOD BY CREATININE-B ASED FORMULA (CKD-EPI 2020)/1.73 SQ M 99 03/14 Specimen Type: PLASMA No comment entered. Ordering Provider: ELENO LUNA III Report Released Date/Time : Mar 14, 2025 01:10 PM Reporting Lab: [place] [facility] [address] [place] [address] Performin g Lab: [place] [facility] [address] [place] [address] [facility] Encounters Combined list of: 1) Encounters from Department of Veterans Affairs facilities going backup to the last 18 months, not all [facility] inpatient encounters are included; 2) Encounters from the Department of Defense facilities going backup to 280 months. Location Location Details Encounter Type Encounter Number Reason For Visit Attending Provider ADM Date DC Date Status Disposition Source [facility] Outpatient Encounter [id number] 01/16 [facility] Outpatient Encounter [id number] 01/09 [facility] Social History Combined list of available smoking, tobacco, and other social history from Department of Defense and Veterans Affairs facilities. Social History Type Response Date Comment Sour e Tobacco smoking status NHIS V16 TOBACCO USE SCREEN 04/17/2010 [facility] History of tobacco use V16 TOBACCO CESSA TION > 12 MONTHS 04/17/2010 [facility] History of tobacco use V16 TOBACCO USE SCREEN 02/05/2009 [facility] Plan of Care List of future care activities from Department of Veterans Affairs facilities. Additional future care activities may be listed in the Assessment and Plan section. Date/Time Care Activity Care Activity Detail Facili ty 03/22/2025 AMBULATORY - MEDICINE AMBULATORY - MEDICI [facility]
[2025-03-18 23:40] VITALS: BP 140/80; PULSE 82; RESP 17; TEMP 36.5; O2SAT 98; BMI 22.6
--- OUTSIDE RECORDS SUMMARY | 2025-03-18 23:48 | XMS_ITS | Data Portability ---
Author Organization [facility] Fidencio Navarrete [facility] Lizandro Logan [facility] Address [address] [place] [address] Care Team Providers Care Jewel Bearing Turner Name Role Phone DORI SU Primary Care Provider Unavailabl e Assessment No assessment recorded. Plan of Treatment Reminders Order Date Submit Date Provider Last Modified By Organization Details Last Modified Time Details Appointments None recorded. Lab PSA, serum or plasma - ORDERED BY [facility]/ WILL FAX YF 2024 025 [employer] [facility], [address] [place], [address], 07:22:22 BMP, serum or plasma - ORDERED BY [facility]/ WILL FAX YF 2024 025 PETROLIA [facility], [address] [facility], [facility] [address], [place], [address], 17:11:32 CMP, serum or plasma 2024 025 [facility], [address] [facility] [facility], [facility] [address], [place], [address], 16:59:20 CBC 2024 025 [facility], [address] [facility] [facility], [facility] [address], [place], [address], 16:20:33 microalbu min/creat inine, mass ratio, urine 2024 025 [employer], [address] [facility] [address], [place], [address], 07:35:33 hemoglobi n A1C/hemog lobin total, QN, blood 2024 025 [facility], [address], [place], [address], 16:26:06 lipid panel, blood 2024 025 [facility], [address] [facility] [facility], [address], [place], [address], 16:59:[address] referral 2024 025 [email or web address] 2 [facility], [address] [place], [address], 10:25:02 Procedures None recorded. Surgeries None recorded. Imaging XR, abdomen, 1 view 2024 025 [email or web address] [facility], [address] [facility], [place], [address], 18:57:36 Medication Orders None recorded. Patient TargetsNo targets recorded. Patient InstructionsNo instructions recorded. Reason for Referral Neurologist Referral for Par kinson's disease Referring Physician: Dori Su, Family Medicine, Encounter Date: 12/20/2024 Results Created Date Observation Date Name Description Value Unit Range Abnormal Flag Note LastModifiedBy Organization Detail LastModifiedTime 11/21/1911/20/2024 CBC WBC 8.6 x10 4.5-10 .5 Not Available [facility] [address], [place], [address], 11/20/2024 16:20:33 11/21/1911/20/2024 CBC RBC 5.40 x10 4.30-5 .90 Not Available [facility] [address] [facility] 1, [place], [address], 11/20/2024 16:20:33 11/21/19 25 11/20/2024 CBC HGB 16.5 g/dL 13.5-1 8.0 Not Available [facility] [address] [facility], [place], [address], 11/20/2024 16:20:33 11/21/19 25 11/20/2024 CBC HCT 51.4 % 35.0-6 0.0 Not Available [facility] [address] [facility] [address], [place], [address], 11/20/2024 16:20:33 11/21/19 25 11/20/2024 CBC MCV 95.1 fL 80.0-9 9.9 Not Available [facility] [address] [facility] [address], [place], [address], 11/20/2024 16:20:33 11/21/19 25 11/20/2024 CBC MCH 30.6 pg 27.0-3 2.0 Not Available [facility] [address] [facility] [address], [place], [address], 11/20/2024 16:20:33 11/21/19 25 11/20/2024 CBC MCHC 32.1 g/dL 32.0-3 6.0 Not Available [facility] [address] [facility] [address], [place], [address], 11/20/2024 16:20:33 11/21/19 25 11/20/2024 CBC RDW 14.6 % 11.5-1 4.5 high Not Available [facility] [address] [facility] [address], [place], [address], 11/20/2024 16:20:33 11/21/19 25 11/20/2024 CBC plt 197.9 x10 150.0- 451.0 Not Available [facility] [address] [facility] 1, [place], [address], 11/20/2024 16:20:33 11/21/19 25 11/20/2024 CBC lymphocytes % 31.9 % 20.0-5 0.0 Not Available [place] [facility] [address] [facility] [address], [place], [address], 11/20/2024 16:20:33 11/21/19 25 11/20/2024 CBC granulcytes % 59.2 % 30.0-7 0.0 Not Available [facility] [address] [facility] [address], [place], [address], 11/20/2024 16:20:33 11/21/19 25 11/20/2024 CBC monocytes % 6.7 % 2.0-16 .0 Not Available [place] [facility] [address] [facility] [address], [place], [address], 11/20/2024 16:20:33 11/21/19 25 11/20/2024 CBC granulcytes# 5.1 x10 Not Marina ilable Nicolas [facility] [address] [facility] [address], [place], [address], 11/20/2024 16:20:33 11/21/19 25 11/20/2024 CBC lymphocytes # 2.7 x10 Not Available [place] [facility] [address] [facility] [address], [place], [address], 11/20/2024 16:20:33 11/21/19 25 11/20/2024 CBC monocytes # 0.6 x10 Not Avai lable [facility] [address] [facility] [address], [place], [address], 11/20/2024 16:20:33 11/21/19 25 11/20/2024 HBA1C hemaglobin A1C 5.6 4.2-6. 5 Not Available [facility] [address] [facility] [address], [place], [address], 11/20/2024 16:26:06 11/21/19 25 11/20/2024 CMP (MALE ) glucose 97.0 mg/dL 60.0-9 9.0 Not Available [facility] [address] [facility] [address], [place], [address], 11/20/2024 16:59:20 11/21/19 25 11/20/2024 CMP (MALE ) BUN (blood urea nitrogen) 15.0 mg/dL 10.0-2 6.0 Not Available [facility] [address] [facility] [address], [place], [address], 11/20/2024 16:59:20 11/21/19 25 11/20/2024 CMP (MALE ) creatinine (serum) 0.6 mg/dL 0.4-1. 5 Not Available [facility] [address] [facility] [address], [place], [address], 11/20/2024 16:59:20 11/21/19 25 11/20/2024 CMP (MALE ) BUN/creatini ne ratio 25.00 ratio Not Available [facility] [address] [facility] [address], [place], [address], 11/20/2024 16:59:20 11/21/19 25 11/20/2024 CMP (MALE ) eGFR calculated 139.6 Not Available [facility] [address] [facility] [address], [place], [address], 11/20/2024 16:59:20 11/21/19 25 11/20/2024 CMP (MALE ) total protein 7.9 g/dL 6.0-8. 5 Not Available [facility] [address] [facility] [address], [place], [address], 11/20/2024 16:59:20 11/21/19 25 11/20/2024 CMP (MALE ) total bilirubin 0.8 mg/dL 0.2-1. 3 Not Available [facility] [address] [facility] [address], [place], [address], 11/20/2024 16:59:20 11/21/19 25 11/20/2024 CMP (MALE ) albumin 4.8 g/dL 3.5-5. 5 Not Available [facility] [address] [facility] [address], [place], [address], 11/20/2024 16:59:20 11/21/19 25 11/20/2024 CMP (MALE ) globulin 3.1 calc Not Available [facility] [address] [facility] [address], [place], [address], 11/20/2024 16:59:20 11/21/19 25 11/20/2024 CMP (MALE ) AST (SGOT) 13.0 U/L 0.0-46 .0 Not Available [facility] [address] [facility] [address], [place], [address], 11/20/2024 16:59:20 11/21/19 25 11/20/2024 CMP (MALE ) altv (SGPT) 4.0 U/L 13.0-6 9.0 abnormal Not Available [facility] [address] [facility] [address], [place], [address], 11/20/2024 16:59:20 11/21/19 25 11/20/2024 CMP (MALE ) A/G ratio 1.5 ratio Not Available [facility] [address] [facility] [address], [place], [address], 11/20/2024 16:59:20 11/21/19 25 11/20/2024 CMP (MALE ) ALP phos 106.0 U/L 30.0-1 40.0 normal Not Available [facility] [address] [facility] [address], [place], [address], 11/20/2024 16:59:20 11/21/19 25 11/20/2024 CMP (MALE ) calcium 9.6 mg/dL 8.4-10 .5 Not Available [facility] [address] [facility] [address], [place], [address], 11/20/2024 16:59:20 11/21/19 25 11/20/2024 CMP (MALE ) sodium 140.0 mmol/ L 136.0- 145.0 Not Available [facility] [address] [facility] [address], [place], [address], 11/20/2024 16:59:20 11/21/19 25 11/20/2024 CMP (MALE ) potassium 4.5 mmol/ L 3.5-5. 1 Not Available [facility] [address] [facility] [address], [place], [address], 11/20/2024 16:59:20 11/21/19 25 11/20/2024 CMP (MALE ) chloride 103.0 mmol/ L 98.0-1 10.0 normal Not Available [facility] [address] [facility] [address], [place], [address], 11/20/2024 16:59:20 11/21/19 25 11/20/2024 CMP (MALE ) C02 28.0 mmol/ L 22.0-3 1.0 Not Available [facility] [address] [facility] [address], [place], [address], 11/20/2024 16:59:20 11/21/19 25 11/20/2024 CMP (MALE ) anion gap 9.0 calc Not Available [facility] [address] [facility] [address], [place], [address], 11/20/2024 16:59:20 11/21/19 25 11/20/2024 CMP (MALE ) osmolality 289.9 calc Not Available [facility] [address] [facility] [address], [place], [address], 11/20/2024 16:59:20 11/21/19 25 11/20/2024 LIPID PROFI LE (MALE ) cholesterol 165.0 mg/dL 0.0-20 0.0 Not Available [facility] [address] [facility] [address], [place], [address], 11/20/2024 16:59:23 11/21/19 25 11/20/2024 LIPID PROFI LE (MALE ) trig 112.0 mg/dL 0.0-15 0.0 Not Available [facility] [address] [facility], [place], [address], 11/20/2024 16:59:23 11/21/19 25 11/20/2024 LIPID PROFI LE (MALE ) HDL - direct 44.0 mg/dL >40.0 Not Available [facility] [address] [facility] [address], [place], [address], 11/20/2024 16:59:23 11/21/19 25 11/20/2024 LIPID PROFI LE (MALE ) VLDL - direct 22.4 mg/dL Not Available [facility] [address] [facility] [address], [place], [address], 11/20/2024 16:59:23 11/21/19 25 11/20/2024 LIPID PROFI LE (MALE ) LDL - direct 98.6 mg/dL 0.0-13 0.0 Not Available [facility] [address] [facility] [address], [place], [address], 11/20/2024 16:59:23 11/22/19 25 11/22/2024 ALBUM IN, RANDO M URINE W/CRE ATINI NE creatinine, random urine 92 mg/dL 20-320 normal Not Available [facility] [address] [place], [address], 11/22/2024 07:35:33 11/22/19 25 11/22/2024 ALBUM IN, RANDO M URINE W/CRE ATINI NE albumin, urine 0.7 mg/dL see note: normal Refer ence Range : Refer ence Range Not estab lishe d Not Available [facility] [address] [place], [address], 11/22/2024 07:35:33 11/22/19 25 11/22/2024 ALBUM IN, RANDO M URINE W/CRE ATINI NE albumin/crea tinine ratio, random urine 8 mg/g_ creat <30 normal The ADA defin es abnor malit ies in album in excre tion as follo ws: Album inuri a Categ ory Resul t (mg/g creat inine ) Hilda l to Mildl y incre ased <30 Moder ately incre ased 30-29 9 Sever kathy incre ased > OR = 300 The ADA recom mends that at least two of three speci mens colle cted withi n a 3-6 month perio d be abnor mal befor e consi ernesto g a patie nt to be withi n a diagn ostic categ ory. Not Available [facility] [address] [place], [address], 11/22/2024 07:35:33 03/07/20 25 03/07/2025 BMP (MALE ) glucose 136.0 mg/dL 60.0-9 9.0 high Not Available [facility] [address] [facility], [place], [address], 03/07/2025 17:11:32 03/07/20 25 03/07/2025 BMP (MALE ) BUN (blood urea nitrogen) 18.0 mg/dL 10.0-2 6.0 Not Available [facility] [address] [facility], [place], [address], 03/07/2025 17:11:32 03/07/20 25 03/07/2025 BMP (MALE ) creatinine (serum) 0.7 mg/dL 0.4-1. 5 Not Available [place] [facility] [address] [facility], [place], [address], 03/07/2025 17:11:32 03/07/20 25 03/07/2025 BMP (MALE ) BUN/creatini ne ratio 25.71 ratio Not Available [facility] [address] [facility], [place], [address], 03/07/2025 17:11:32 03/07/20 25 03/07/2025 BMP (MALE ) calcium 9.4 mg/dL 8.4-10 .5 Not Available [place] [facility] [address] [facility], [place], [address], 03/07/2025 17:11:32 03/07/20 25 03/07/2025 BMP (MALE ) sodium 139.0 mmol/ L 136.0- 145.0 Not Available [facility] [address] [facility] 1, [place], [address], 03/07/2025 17:11:32 03/07/20 25 03/07/2025 BMP (MALE ) potassium 4.1 mmol/ L 3.5-5. 1 Not Available [place] [facility] [address] [facility], [place], [address], 03/07/2025 17:11:32 03/07/20 25 03/07/2025 BMP (MALE ) chloride 102.0 mmol/ L 98.0-1 10.0 normal Not Available [place] [facility] [address] [facility] 1, [place], [address], 03/07/2025 17:11:32 03/07/20 25 03/07/2025 BMP (MALE ) C02 28.0 mmol/ L 22.0-3 1.0 Not Available [facility] [address] [facility] [address], [place], [address], 03/07/2025 17:11:32 03/07/20 25 03/08/2025 PSA, TOTAL PSA, total 1.96 NG/mL < or = 4.00 normal The total PSA value from this assay syste m is stand ardiz ed again st the WHO stand angela. The test resul t will be appro ximat kathy 20% lower when ethan red to the equim olar- stand ardiz ed total PSA ([place] man Coult er). Ethan rison of seria l PSA resul ts shoul d be inter prete d with this fact in mind. This test was perfo rmed using the farmaciamarket ns chemi lumin escen t metho d. Value s obtai radha from diffe rent assay metho ds canno t be used inter christopher eably . PSA level s, regar dless of value , shoul d not be inter prete d as absol ameya evide nce of the prese nce or absen ce of disea se. Not Available [facility] [address] [place], [address], 03/08/2025 07:22:22 03/08/20 25 03/08/2025 URINA LYSIS WITH MICRO color YELLOW Not Available [facility] [address] [facility] [address], [place], [address], 03/08/2025 15:03:27 03/08/20 25 03/08/2025 URINA LYSIS WITH MICRO clarity CLEAR Not Available [facility] [address] [facility], [place], [address], 03/08/2025 15:03:27 03/08/20 25 03/08/2025 URINA LYSIS WITH MICRO glu NEGATI VE Not Available [facility] [address], [place], [address], 03/08/2025 15:03:27 03/08/20 25 03/08/2025 URINA LYSIS WITH MICRO bili NEGATI VE Not Available [facility] [address], [place], [address], 03/08/2025 15:03:27 03/08/20 25 03/08/2025 URINA LYSIS WITH MICRO ket NEGATI VE Not Available [facility] [address], [place], [address], 03/08/2025 15:03:27 03/08/20 25 03/08/2025 URINA LYSIS WITH MICRO S.g >1.030 1.005- 1.025 high > Not Available [facility] [address] [facility], [place], [address], 03/08/2025 15:03:27 03/08/20 25 03/08/2025 URINA LYSIS WITH MICRO pH 6.0 Not Available [facility] [address] [facility] [address], [place], [address], 03/08/2025 15:03:27 03/08/20 25 03/08/2025 URINA LYSIS WITH MICRO pro TRACE abnormal Not Available [facility] [address], [place], [address], 03/08/2025 15:03:27 03/08/20 25 03/08/2025 URINA LYSIS WITH MICRO uro 0.2 E.U./D L Not Available [facility] [address] [facility] [address], [place], [address], 03/08/2025 15:03:27 03/08/20 25 03/08/2025 URINA LYSIS WITH MICRO nit POSITI VE abnormal Not Available [facility] [address] [facility] [address], [place], [address], 03/08/2025 15:03:27 03/08/20 25 03/08/2025 URINA LYSIS WITH MICRO blo NEGATI VE Not Available [facility] [address] [facility] [address], [place], [address], 03/08/2025 15:03:27 03/08/20 25 03/08/2025 URINA LYSIS WITH MICRO lazara 1+ abnormal Not Available [facility] [address] [facility] [address], [place], [address], 03/08/2025 15:03:27 03/08/20 25 03/08/2025 URINA LYSIS WITH MICRO WBC 60-80 abnormal Not Available [facility] [address] [facility] [address], [place], [address], 03/08/2025 15:03:27 03/08/20 25 03/08/2025 URINA LYSIS WITH MICRO RBC 1-2 Not Available [facility] [address] [facility] [address], [place], [address], 03/08/2025 15:03:27 03/08/20 25 03/08/2025 URINA LYSIS WITH MICRO epi cells 2-3 Not Available [facility] [address] [facility] [address], [place], [address], 03/08/2025 15:03:27 03/08/20 25 03/08/2025 URINA LYSIS WITH MICRO bacteria 1+ MIXED SHAQUILLE abnormal Not Available [facility] [address] [facility] [address], [place], [address], 03/08/2025 15:03:27 03/08/20 25 03/08/2025 URINA LYSIS WITH MICRO other NG Not Available [facility] [address] [facility] [address], [place], [address], 03/08/2025 15:03:27 03/08/20 25 03/10/2025 CULTU RE, URINE , ROUTI NE culture, urine, routine SEE NOTE CULTU RE, URINE , ROUTI NE Micro Numbe r: [id number] Test Statu s: Final Speci men Sourc e: Urine Speci men Quali ty: Adequ ate Resul t: Mixed genit al shaquille isola alfredo. These super ficia l bacte abdulkadir are not indic ative of a urina ry tract infec tion. No furth er organ ism ident ifica tion is warra nted on this speci men. If clini kalpesh indic ated, recol lect clean -catc h, mid-s tream urine and trans keegan immed iatel y to Urine Cultu re Trans port Tube. Not Available [facility] [address] [place], [address], 03/10/2025 04:35:53 01/07/20 25 01/04/2025 XR, abdom en, 1 view No observ ation record ed. [facility] [address] [place], [address], 01/06/2025 12:28:13 Result Notes None recorded. Problems Name Problem SNOMED Code Status Onset Date Resolution Date Notes Provider Name and Address Organization Details Recorded Time Anxiety 23083008 Active [address] [facility] 5 15:45:37 Parkinson 's disease 99275017 Active [address] [facility] 15:46:43 Type 2 diabetes mellitus 69877808 Active [address] [facility] 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 3 08:54:23 Anxiety disorder 208215832 Active 2022 Alina steel, [facility] 5 15:45:40 Hyperchol esterolem ia 69165057 Active 2022 Alina steel, [facility] 5 15:46:49 Gastroeso phageal reflux disease 783505092 Active 2022 Alina steel, [facility] 5 15:46:09 Benign prostatic hyperplas ia with outflow obstructi on 625889142 Active [address] [facility] 5 15:45:49 Dermatoph ytosis 19945922 Active 2022 Dori Su MD [address] [place] [address], [phone], [facility] 3 14:22:44 Skin lesion 88696682 Completed 202211/20/[address] [facility] 5 15:47:00 Diabetic periphera l neuropath y 132397448 Active [address] [facility] 5 15:46:04 Abnormal gait 92935205 Active [address] [facility] 5 15:45:33 Memory impairmen t 478120626 Active 2024 Dori Su MD [address] [place] [address], [phone], [facility] 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 Procedures Surgical History Date Name Laterality Status Provider Name and Address Organization Details Recorded Time 08/14/19 [address]/19/2022 09:09:55 06/11/19 21 Flexible [facility]/19/2022 09:09:21 [facility]olecyst[facility] 11/19/2022 09:08:01 Imaging Results None recorded. Procedure Notes None recorded. Medical Equipment None Reported. Allergies No known drug allergies Medications Name Sig Start Date Stop Date Status Note LastModified by Organization Details LastModified Time quetiapin e 25 mg tablet TAKE 2 TABLETS BY MOUTH AT BEDTIME FOR HALLUCIN ATIONS active Not Available Not Available No t Available silver sulfadiaz ine 1 % topical cream 11/19 completed Not Available Not Available Not Available gabapenti n 600 mg tablet TAKE 1 TABLET BY MOUTH TWICE DAILY active Not Available Not Available No t Available doxycycli ne hyclate 100 mg capsule 02/24 completed Not Available Not Available Not Available ropinirol e 1 mg tablet three times daily 12/20 completed 0; Recorded 12/31/19 22 2:14PM by Xu Almonte on/Bishop dum; Not Available Not Available Not Available ketoconaz ole 2 % shampoo LATHER ONTO SCALP 1-2 TIMES WEEKLY. ALLOW TO SIT 5 MINUTES BEFORE RINSING. active Not Available Not Available No t Available trazodone 50 mg tablet TAKE 1/2 TABLET BY MOUTH AT BEDTIME 01/04 completed Not Available Not Available Not Available ciproflox acin 500 mg tablet 11/19 completed Not Available Not Available Not Available omeprazol e 40 mg capsule,d elayed release TAKE 1 CAPSULE BY MOUTH EVERY DAY active Not Available Not Available No t Available amantadin e HCl 100 mg capsule TAKE 1 CAPSULE BY MOUTH TWICE DAILY NEEDED FOR MILD PAIN AND TEMPERAT URE active Not Available Not Available No t Available alprazola m 0.5 mg tablet Take 1 tablet every day by oral route as needed. 2023 active Not Available Not Available Not Avai lable methenami ne hippurate 1 gram tablet TAKE 1 TABLET BY MOUTH FOUR TIMES DAILY FOR 90 DAYS 2024 active Not Available Not Available Not Avai lable tamsulosi n 0.4 mg capsule TAKE 2 CAPSULES BY MOUTH EVERY DAY active Not Available Not Available No t Available trazodone 100 mg tablet TAKE 1 TABLET BY MOUTH AT BEDTIME active Not Available Not Available No t Available ropinirol e 2 mg tablet TAKE 1 TABLET BY MOUTH THREE TIMES DAILY 11/20 completed Not Available Not Available Not Available methenami ne mandelate 1 gram tablet Take 1 tablet twice a day by oral route for 90 days. active Not Available Not Available No t Available clobetaso l 0.05 % topical ointment APPLY TO AFFECTED AREAS ON LEGS TWICE DAILY NO MORE THAN 2 WEEKS PER MONTH NEEDED FOR FLARES active Not Available Not Available No t Available carbidopa 25 mg-levodo pa 100 mg tablet TAKE 1 AND 1/2 TABLETS BY MOUTH THREE TIMES DAILY active Not Available Not Available No t Available clotrimaz ole 1 % topical cream APPLY TO THE AFFECTED AND SURROUND ING AREAS OF SKIN BY TOPICAL ROUTE 2 TIMES PER DAY IN THE MORNING AND EVENING 12/27 completed Not Available Not Available Not Available finasteri de 5 mg tablet TAKE 1 TABLET BY MOUTH EVERY DAY 2024 active Not Available Not Available Not Avai lable buspirone 15 mg tablet 2 times per day for anxiety disorder 11/20 completed Not Available Not Available Not Available doxazosin daily active Not Available Not Marina ilable Not Available pravastat in daily 11/20 completed Not Available Not Available Not Available gabapenti n two times daily 02/15 completed 0; Recorded 12/31/19 22 2:19PM by Nova Budny, Office Visit; Not Available Not Available Not Available Trazodone at bedtime 02/15 completed 0; Recorded 12/31/19 22 2:17PM by Nova Bundy, Office Visit; Not Available Not Available Not Available quetiapin e 50 mg tablet TAKE 1 TABLET BY MOUTH EVERY DAY AT BEDTIME active Not Available Not Available No t Available melatonin 5 mg tablet at bedtime active Not Available Not Available No t Available OneTouch Verio test strips use as directed to check blood sugars up to 4 x daily 2021 active Not Available Not Available Not Avai lable Vitals Date Recorded Body height Body mass index (BMI) Body weight Body temperature Heart rate Oxygen saturation Oxygen saturation in Arterial blood by Pulse oximetry Systolic And Diastolic Provider Name and Address Organization Details Last Updated DateTime 5 172.72 cm 24.1 kg/m2 98808.4 7 g 97.6 [degF] 68 /min 97 % 97 % 104/76 mm[Hg] Alina Davey [facility] 5 15:13:31 Date Recorded Body height Body mass index (BMI) Body weight Oxygen saturation Oxygen saturation in Arterial blood by Pulse oximetry Heart rate Systolic And Diastolic Provider Name and Address Organization Details Last Updated DateTime 5 172.72 cm 24.3 kg/m2 24096.7 8 g 96 % 96 % 71 /min 107/62 mm[Hg] Tanika Tidwell [facility] 5 14:21:37 Date Recorded Body height Body mass index (BMI) Body weight Oxygen saturation Oxygen saturation in Arterial blood by Pulse oximetry Heart rate Respiratory rate Body temperature Systolic And Diastolic Provider Name and Address Organization Details Last Updated DateTime 5 172.72 cm 23.9 kg/m2 90703 g 96 % 96 % 86 /min 16 /min 98.2 [degF] 130/70 mm[Hg] Coby Mack [facility] 5 15:37:22 Social History Question Answer Notes LastModified by Organizat ion Details LastModified Time Tobacco Smoking Status Former Smoker [facility] 11/19/2022 09:06:54 What Is Your Level Of Caffeine Consumption? Occasional Information not available 11/19/2022 What Was The Date Of Your Most Recent Tobacco Screening? 01/04/2025 [email or web address] Information not available 01/04/2025 What Is Your Current Pack Years? [email or web address] guero Information not available 11/20/2024 What Is Your Relationship Status? Information not available 11/19/2022 Do You Use Your Seat Belt Or Car Seat Routinely? Yes Information not available 11/19/2022 Have You Recently Traveled Abroad? No Information not available 11/19/2022 Sex: Unknown Functional Status Question Answer Note LastModified by Organizat ion Details LastModified Time Do you use any illicit or recreational drugs? No Information not available 11/19/2022 What is your level of alcohol consumption? None Information not available 11/19/2022 Are you currently employed? No Information not available 11/19/2022 Mental Status None recorded. Family History Relationship Description Onset Age of this Age Resolved Age Notes LastModified by Organization Details LastModified Time Mother Heart disease tgregg Not available 2022 08:55:44 Mother Type 2 diabetes mellitus tgregg Not available 2022 08:56:29 Mother Congestive heart failure tgregg Not available 2022 09:05:16 Father Acute heart disease tgregg Not available 2022 08:56:05 Father Diabetes mellitus tgregg Not available 2022 08:56:17 Medical History No medical history recorded. Immunizations Vaccine Type Date Status Note Provider Nam e and Address Organization Details Recorded Time COVID-19, mRNA, LNP-S, PF, raine-sucrose, 30 mcg/0.3 mL 3 completed Juana Reed [facility] 12/28/2023 07:51:51 COVID-19, mRNA, LNP-S, PF, 30 mcg/0.3 mL dose [address] [facility] 11/18/2022 15:31:10 COVID-19, mRNA, LNP-S, PF, 30 mcg/0.3 mL dose 1 completed NOVASA LORI steel, [facility] 11/18/2022 15:31:10 COVID-19, mRNA, LNP-S, PF, 30 mcg/0.3 mL dose 1 completed NOVA LORI null, [facility] 11/18/2022 15:31:10 COVID-19, mRNA, LNP-S, PF, 30 mcg/0.3 mL dose, raine-sucrose 2 completed NOVA ADAMSG null, [facility] 11/18/2022 15:31:10 pneumococcal polysaccharide PPV23 2 completed NOVA ADAMSG null, [facility] 11/18/2022 15:31:10 Tdap 1 completed NOVA ADAMSG milvia, [facility] 11/18/2022 15:31:10 Pneumococcal conjugate PCV 13 5 completed NOVA ADAMSG milvia, [facility] 11/18/2022 15:31:10 COVID-19, mRNA, LNP-S, PF, 50 mcg/0.5 mL 4 completed [facility] 15:31:36 Past Encounters Encounter ID Performer Location Encounter Start Date Encounter Closed Date Diagnosis/Indication Diagnosis SNOMED-CT Code Diagnosis ICD10 Code Diagnosis IMO Codes Diagnosis Note [id number] PER FIERRO [facility] ([facility]) [address] [place] [address] [phone] 5 09/28/2022 12:33:49 10/08/2022 13:01:11 Swelling of scrotum 643533024 N50.89 Pain of left testicle 16 29068429 4783786 N50.812 [id number] Dori Su MD [facility] ([facility]) [address] [place] [address] [phone] 11/19/2022 13:50:02 11/20/2022 14:16:36 Adult health examination 890386451 Z00.00 We will obtain lab work today. We will include a PSA given his history of prostate issues and at the recommenda tion of his urologist. Screening for cardiovascular system disease 026961644 Z13.6 Benign pro static hyperplasia with outflow obstruction 206499690 N40.1 Patient is cathing 3-4 times daily Gastroesop hageal reflux disease 466697684 K21.9 Dermatophytosis 07632474 B35.9 Lesion is most consistent with fungal infection. We will start clotrimazo le. Prediabetes 320901188 R7 3.03 We will recheck A1c today. Anxiety disorder 3379537 06 F41.9 Stable on current medication s Parkinson's disease 4904 9000 G20 Patient follows up with neurology regularly. Continue carbidopa levodopa [id number] Dori Su MD [facility] ([facility]) [address] [place] [address] [id number] 5 02/24/2023 14:42:45 02/24/2023 15:39:05 Type 2 diabetes mellitus 87505551 E11.9 1C is good at 6%. No other interventi on needed at this time. Skin lesion 83090794 L98 .9 Send referral to dermatolog y to help with management . Parkinson's disease 4904 9000 G20.B1 Continue with neurology follow-up. Dermatophytosis 62387143 B35.9 Lesion is most consistent with fungal infection. We will start clotrimazo le. [id number] Dori Su MD [facility] ([facility]) [address] [place] [address] [phone] 5 02/24/2023 14:43:43 02/24/2023 16:52:24 Type 2 diabetes mellitus 39817815 E11.9 [id number] Dori Su MD [facility] ([facility]) [address] [place] [address] [phone] 5 12/21/2023 15:39:30 12/21/2023 16:39:17 Type 2 diabetes mellitus 67292898 E11.9 Doing well on current medication s. Obtain lab work today. Anxiety 94740710 F41.9 Discussed options for treatment and the patient would like to proceed with a benzo which I think is reasonable given his likely infrequent use of this medication . Benign pro static hyperplasia with outflow obstruction 470668645 N40.1 Patient is cathing 3-4 times daily Parkinson's disease 4904 9000 G20.B1 Continue with neurology follow-up. Hyperlipid emia screening 411689540 Z13.220 Benign pro static hyperplasia 121696909 N40.0 Diabetic p eripheral neuropathy 195474312 E11.40 Abnormal gait 89848474 R 26.2 2/2 parkinson' s Impaired mobility 174578 05 Z74.09 [facility] [id number] 6337635 Z74.1 [id number] Dori Su MD [facility] ([facility]) [address] [place] [address] [id number] 5 11/20/2024 14:37:27 11/20/2024 16:05:01 Type 2 diabetes mellitus 55098041 E11.9 Will check labs today. Patient has had poor appetite but has been eating well and blood sugars have little concern for them at this time. Parkinson's disease 4904 9000 G20.B1 Continue with neurology follow-up. Hypercholesterolemia 136 90559 E78.00 Cholestero l. Anxiety disorder 3741557 06 F41.9 Stable on current medication s Diabetic p eripheral neuropathy 931368153 E11.40 Continue gabapentin . Memory impairment 750977 006 R41.3 696826 Symptoms are concerning for significan t dementia. Follow-up with neurology next week discuss imaging results and this potential diagnosis. [id number] PER YAO [facility] ([facility]) [address] [place] [address] [phone] 12/11/2024 13:34:44 12/11/2024 14:22:09 [id number] Dori Su MD [facility] ([facility]) [address] [place] [address] [id number] 5 12/20/2024 13:57:10 12/20/2024 15:02:51 Parkinson's disease 14341272 G20.B1 Patient wants to be referred to neurologis t closer to home. 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 Discussed resources to help with the patient's as a caregiver. [id number] PER YAO [facility] ([facility]) [address] [place] [address] 01/04/2025 15:25:36 01/04/2025 18:57:36 Slow transit constipation 56364536 K59.01 8838 Xray with large amount of stool present. Advised to start miralax daily. Patient's states that she has this at time. RTC with any new or worsening symptoms. [id number] Dori Su MD [facility] ([facility]) [address] [place] [address] 03/07/2025 15:33:57 03/08/2025 10:11:39 Neurogenic urinary bladder 508977698 N31.9 127430 Screening for malignant neoplasm of prostate 183567263 Z12.5 [id number] Health Concerns Section Related Observation LastModified by Organization Detai ls LastModified Time None Recorded Concern Status LastModified by Organization Details LastModified Time None Recorded Advance Directives Directive None Recorded Payers Insurance Date Sequence Insurance Name Policy Number Policy Murry Covered Member ID Murry Member ID Guarantor Name 03/07/2025 1 [facility] (MEDICARE REPLACEMENT/A DVANTAGE - PPO) [id number] Kali Castro [id number] Kali Castro Notes Date Note Type Note Provider Name and Address Organization Details Recorded Time 5 text/html Annual WellnessReported by PatientSocial/Behavioral HistoryFor physical activity, patient reportspoor physical conditionbut reportsrecent increase in physical activity. For additional lifestyle factors, patient reportsno tobacco use. For diet and nutrition, (poor appetite).Mental Status:For depression risk, patient reportsfeels sad, empty, or tearful,loss of interest in activities,significant changes in weight,sleep disturbances or insomnia,loss of energy, andhistory of depression.Functional AbilityFor vision, patient reportstotal vision lossandworsening. For hearing, patient reportsno loss of hearing. This is 74-year-old gentleman that comes in today for routine follow-up. Patient is due for lab work. Patient continues to follow with neurology for his Parkinson's. Recently underwent head imaging and is currently being evaluated for dementia. Patient is having significant symptoms concerning for sundowners per his . Patient is having increasing paranoia and significant memory loss. Dori Su MD [address] [place] [address], [phone], [facility] 11/21/2024 15:04:07 5 text/html ROS as noted in the HPI Pt is here today to talk about medications as well as plan of careWife is here as stating she wants to keep him in their home as long as they can, but has had a couple of aggressive episodes. noted he didnt take his seroquel on those occasions. The has started to completely help with his medications. Dori Su MD [address] [place] [address], [phone], [facility] 12/24/2024 21:27:46 5 text/html ConstipationReported by PatientROS as noted in the HPI walk in patientpatient is here today for constipation that started last week, gave him a enema and he had a little bit of stool, also said that patients stomach looks distended. PER YAO [address] [place] [address], [phone], [facility] 01/04/2025 18:56:07
--- OUTSIDE RECORDS SUMMARY | 2025-03-18 23:48 | XMS_ITS | Patient Health Record ---
Author Organization [facility], [facility] Address [address] [place] [address] Care Team Providers Care Splunk Dashboard Developer Name Role Phone Saúl Su MD Primary Care Provider EMMIE Laguerre Unavailable [phone] Allergies Allergen (clinical drug ingredient) Drug/Non Drug Allergy documented on EMR Reaction Allergy Type Onset Date Status Latex Latex Unknown Allergy Active Results Component Value Reference Range Notes Urinalysis, Routine Reviewed date:09/11/2024 04:39:55 PM Interpretation: Performing Lab: Notes/Report: Urine-Color light yellow Appearance clear Glucose - Bilirubin - Ketones - Specific [place] 1.005 Occult Blood - pH 6.0 Urine Protein - Urobilinogen,Semi-Qn - Nitrite, Urine - WBC Esterase trace Reason For Referral No Information Medications Medication SIG (Take, Route, Frequency, Duration) Notes Start Date End Date Status QUEtiapine Fumarate 25 MG 1 tablet at bedtime Orally Once a day Active Ipratropium-Albuterol 0.5-2.5 (3) MG/3ML 3 mL as needed Inhalation every 6 hrs Not-Taking Omeprazole 40 MG 1 capsule 1/2 to 1 hour before morning meal Orally Once a day Active BUPivacaine HCl 0.25 % (10 ML) as directed Injection Not-Taking Ondansetron 4 MG 1 tablet on the tongue and allow to dissolve Orally Once a day Active dexAMETHasone 10mg Not-Ta veronica rOPINIRole HCl 1 MG 1 tablet 1 to 3 hours before bedtime Orally Once a day Not-Taking Milk Thistle Extract 250mg 2x a day Active Carbidopa-Levodopa 25-100 MG 1 tablet as needed Orally Two times a Week Active Vitamin B12 Active Amantadine HCl 100 MG 1 capsule Orally Once a day Active traZODone HCl 50 MG 1 tablet at bedtime as needed Orally Once a day Active Melatonin 5 MG 1 tablet in the evening Orally Once a day Active Doxycycline 40 MG 1 capsule in the morning on an empty stomach Orally Once a day Not-Taking Tamsulosin HCl 0.4 MG 1 capsule Orally Once a day Active Gabapentin 600 MG 1 tablet Orally Once a day Active Loperamide A-D Not-T aking Silver sulfADIAZINE 1 % 1 application Externally Once a day Active oxyCODONE HCl 5 MG 1 tablet as needed Orally every 6 hrs as needed Not-Taking Methenamine Hippurate 1 GM 1 tablet Orally Twice a day Active Cipro 500 MG 1 tablet Orally every 12 hrs Not-Taking Problems Problem Type SNOMED Code ICD Code Onset Dates Problem Status W/U Status Risk Notes Problem Neurogenic bladder (257649671) Neurogenic bladder (N31.9) Active confirmed Problem Benign prostatic hyperplasia (780524147) BPH (benign prostatic hyperplasia) (N40.0) Active confirmed Vital Signs Heart Rate 72 /min 09/11/2024 Blood pressure diastolic 71 mm Hg 09/11/2024 Height-cm 172.72 cm 09/11/2024 Weight-kg 73.94 kg 09/11/2024 Height 68 in 09/11/2024 Blood pressure systolic 110 mm Hg 09/11/2024 Weight 163 lbs 09/11/2024 BMI 24.78 kg/m2 09/11/2024 Procedures Procedure Date Ordered Date Performed Result Body Sit e Bladder Scan 09/11/2024 09/11/2024 390 mL Encounters Encounter Location Date Provider Diagnosis [facility] [address] [phone] 09/11/2024 EMMIE CHILEL Neurogenic bladder N31.9 ; Urinary retention R33.9 ; BPH (benign prostatic hyperplasia) N40.0 and Prostate cancer screening Z12.5 [facility] [address] [place] [address] 07/19/2024 EMMIE CHILEL [facility] [address] [phone] 03/12/2025 EMMIE CHILEL Assessments Encounter Date Diagnosis (ICD Code) Assessment Notes Treatment Notes Treatment Clinical Notes Section Notes 09/11/2024 Neurogenic bladder (ICD-10 - N31.9) Pt with long h/o neurogenic bladder who is pleased with current management with [facility] 4x daily with flomax, finasteride, and methenamine suppression. They have no concerns or complaints today. Will refill medications and catheter supplies. He understands when he has been cathing for 5 years, will need yearly cystoscopy surveillance. All questions sought and answered to their satisfaction and he is agreeable to plan of care. 09/11/2024 Urinary retention (ICD-10 - R33.9) Pt with long h/o neurogenic bladder who is pleased with current management with [facility] 4x daily with flomax, finasteride, and methenamine suppression. They have no concerns or complaints today. Will refill medications and catheter supplies. He understands when he has been cathing for 5 years, will need yearly cystoscopy surveillance. All questions sought and answered to their satisfaction and he is agreeable to plan of care. 09/11/2024 BPH (benign prostatic hyperplasia) (ICD-10 - N40.0) Pt with long h/o neurogenic bladder who is pleased with current management with [facility] 4x daily with flomax, finasteride, and methenamine suppression. They have no concerns or complaints today. Will refill medications and catheter supplies. He understands when he has been cathing for 5 years, will need yearly cystoscopy surveillance. All questions sought and answered to their satisfaction and he is agreeable to plan of care. 09/11/2024 Prostate cancer screening (ICD-10 - Z12.5) Pt with long h/o neurogenic bladder who is pleased with current management with [facility] 4x daily with flomax, finasteride, and methenamine suppression. They have no concerns or complaints today. Will refill medications and catheter supplies. He understands when he has been cathing for 5 years, will need yearly cystoscopy surveillance. All questions sought and answered to their satisfaction and he is agreeable to plan of care. Plan Of Treatment Pending Test Test Name Order Date Renal Ultrasound GRACE [id number] 07/19/2024 Future Test Test Name Order Date Basic Metabolic Panel 01/12/2025 PSA-Screening 01/12/2025 Insurance Providers Payer Name Payer Address Payer Phone Subscriber Number Group Number Insured Name Patient Relationship to Insured Coverage Start Date Coverage End Date [facility] Medicare Advantage PPO [address] [address] [place], [place] [id number] Kali Damon Self - patient is the insured Medical (General) History Medical History History ICD Code back trouble hemorriods bladder infection hernia pre- diabetic Parkinson's Surgical History Surgery Date(Month/Year) cholecystectomy Hospitalization History Reason Date(Month/Year) see prior sx hx
[2025-03-19 00:12] VITALS: BP 136/86; O2SAT 98
--- NOTE | 2025-03-19 00:15 | CTR_ITS ---
PROCEDURE INFORMATION: Exam: CT Abdomen And Pelvis With Contrast Exam date and time: 03/19/2025 12:27 AM Age: 74 years old Clinical indication: Abdominal pain; Generalized; Prior surgery; Surgery date: 6+ months; Surgery type: Gb; Diffuse abd pain with diarrhea TECHNIQUE: Imaging protocol: Computed tomography of the abdomen and pelvis with contrast. Radiation optimization: All CT scans at this facility use at least one of these dose optimization techniques: automated exposure control; mA and/or kV adjustment per patient size (includes targeted exams where dose is matched to clinical indication); or iterative reconstruction. Contrast material: OMNI 350; Contrast volume: 80 ml; Contrast route: INTRAVENOUS (IV); COMPARISON: CT abdomen pelvis w con* [id number] 08/21/2021 12:28 PM RADIATION DOSE METRICS: Total DLP (mGy-cm): 1352.76 FINDINGS: Liver: Hepatic steatosis. Gallbladder and biliary ducts: Cholecystectomy. Pancreas: Normal. No ductal dilation. Spleen: Normal. No splenomegaly. Adrenal glands: Normal. No mass. Kidneys and ureters: Normal. No hydronephrosis. Stomach and bowel: Moderate fecal retention, correlate for constipation. Appendix: No evidence of appendicitis. Intraperitoneal space: Unremarkable. No free air. No significant fluid collection. Vasculature: Atherosclerotic changes of the aorta. Lymph nodes: Unremarkable. No enlarged lymph nodes. Urinary bladder: Unremarkable as visualized. Reproductive: Enlarged prostate gland measures 5.8 cm. Bones/joints: Degenerative changes of the spine. Soft tissues: Unremarkable. CT/CT abdomen pelvis w con* [id number] IMPRESSION: 1. Moderate fecal retention, correlate for constipation. 2. Hepatic steatosis. 3. Cholecystectomy.
[2025-03-19 00:22] LABS: Hematocrit 45.6 % (37-53); Hemoglobin 15.70 g/dL (11.27-16.99); Mean Corpuscular HGB Conc 34.4 g/dL (30-55); Mean Corpuscular Hemoglobin 30.7 pg (27-33); Mean Corpuscular Volume 89.1 fl (82-101); Nucleated Red Blood Cells % 0 %; Platelet Count 229 10^3/cmm (157-399); Red Blood Count 5.12 10^6/uL (3.85-5.65); White Blood Count 12.42 10^3/uL (3.29-11.43)
[2025-03-19] MEDS: iohexol 350 mg/mL 500 mL Btl (per mL) IV (00:29)
--- NOTE | 2025-03-19 00:30 | ED_ITS ---
HPI - Abdominal Pain 2 General: Chief Complaint: Abdominal Pain Stated Complaint: ABD Pain Time Seen by Provider: 03/18/25 23:40 History of Present Illness: Patient is a 74-year-old male presenting with abdominal pain and diarrhea. Per caregiver (likely spouse), patient has been experiencing diarrhea for approximately 4 days, which has been 'worse by far' recently. The abdominal pain began tonight, described as being 'across' the abdomen. Caregiver reports administering [id number] antidiarrheal medication at 5:00 PM today with initial improvement. However, at approximately 10:30-11:00 PM, patient woke up with abdominal pain and nausea, though no vomiting occurred. Patient has not had any documented fever. Caregiver notes patient's appetite has been decreasing, estimating caloric intake at less than 1,200 calories per day. Caregiver also expresses concern about possible fecal contamination due to poor hand hygiene related to the patient's worsening dementia. Related Data Home Medications ?Medication ?Instructions ?Recorded ?Confirmed carbidopa 25 mg-levodopa 100 mg 1 tab PO 5XD 10/31/19 02/06/25 tablet amantadine HCl 100 mg capsule 100 mg PO BID 05/16/20 0 02/06/25 melatonin 5 mg capsule 10 mg PO QPM 11/27/20 quetiapine 25 mg tablet 25 mg PO BID 11/27/20 ropinirole 0.5 mg tablet 0.5 mg PO TID 11/27/2002/06 trazodone 50 mg tablet 50 mg PO DAILY 11/27/2001/10 ropinirole 1 mg tablet 1 mg PO TID 08/26/21 5 Previous Rx's ?Medication ?Instructions ?Recorded ipratropium 0.5 mg-albuterol 3 mg 3 ml inhalation Q4H PRN wheezing 07/01/20 (2.5 mg base)/3 mL nebulization #180 mL soln omeprazole 40 mg capsule,delayed See Rx Instructions . Route 08/06/21 release .COMPLEX #90 caps ondansetron 4 mg disintegrating 4 mg PO Q6H PRN nausea and 08/15/21 tablet vomiting #14 tabs loperamide 2 mg tablet (Imodium 2 mg PO Q6H PRN loose stool #20 08/26/21 A-D) tabs oxycodone-acetaminophen 5 mg-325 1 tab PO Q4H PRN pain 7 days #40 08/27/21 mg tablet tabs gabapentin 600 mg tablet 600 mg PO BID 90 days #180 t abs 11/11/21 tamsulosin 0.4 mg capsule See Rx Instructions .Route 0 11/11/21 .COMPLEX #180 caps finasteride 5 mg tablet See Rx Instructions .Route 0 12/30/21 .COMPLEX #90 tabs silver sulfadiazine 1 % topical 1 applic topical DAILY #20 grams 04/23/22 cream (Silvadene) methenamine hippurate 1 gram tablet See Rx Instruction s .Route 08/26/22 .COMPLEX #180 tabs uqinn balance brace #1 ea 12/27/23 Allergies Allergy/AdvReac Type Severity Reaction Status Date / Time latex Allergy ALGY-Hives Verified 03/18/25 23:47 PFS ED 2 PFSH: Medical History C. difficile diarrhea Chronic diarrhea Chronic GERD Neuropathy Type 2 diabetes mellitus Hypercholesteremia Urinary retention BPH with obstruction/lower urinary tract symptoms Surgical History Hx of sigmoidoscopy (06/11/20) incomplete due to poor prep Status post colonoscopy (08/13/20) diverticulosis Hx of cholecystectomy Family History Mother Congestive heart failure (CHF) Social History Smoking and tobacco/nicotine status: former use of tobacco/nicotine Alcohol intake: former Substance/Drug Use: never Marital status: Current occupational status: retired Do you think of yourself as: Straight/Heterosexual Physical Exam 2 Const: GENERAL APPEARANCE: cooperative and frail appearing HENMT: COMMON NORMALS: normocephalic and atraumatic HEAD & SCALP: n ormocephalic and atraumatic FACE & SINUS: other (mask like faces) Neck/C-Spine: GENERAL: Yes trachea midline Chest: CHEST: Yes Symmetrical chest wall rise Resp: COMMON NORMALS: No retractions, No use of accessory muscles and clear to auscultation bilaterally AUSCULTATION: clear to auscultation bilaterally Cardio: COMMON NORMALS: regular rate and regular rhythm RATE: regular rate RHYTHM: regular rhythm GI: INSPECTION: Yes abdominal distension AUSCULTATION: Yes normoactive bowel sounds PALPATION: Yes Tenderness to palpation present (GI) (upper) P ERCUSSION: dullness to percussion Neuro: EMBER COMA SCALE: document GCS findings Ember coma scale eye opening: Spontaneous [place] coma scale verbal response: Confused [place] coma scale motor response: Obey commands Ember coma scale total score: 14 Course 2 Vital Signs: Vital signs: Vital Signs Temperature 97.7 F 03/18/25 23:40 Pulse Rate 79 03/19/25 03:05 Respiratory Rate 17 03/18/25 23:40 Blood Pressure 185/92 03/19/25 03:05 Pulse Oximetry 98 03/19/25 03:05 Oxygen Delivery Me thod Room Air 03/19/25 00:12 MDM - Abdominal Pain Medical Decision Making 74-year-old male patient with a history of Parkinson's disease and dementia. He presents with abdominal pain and distention along with some liquid stool last 4 days. No fever. White blood cell count is 12. CRP however is 3. Lactic acid is normal. Urinalysis shows greater than 100 whites, 3+ leukocyte esterase positive nitrates. Lipase is 700. Liver enzymes are normal. CT of the abdomen pelvis shows no pancreatic inflammation, abscess formation, or ductal dilatation. The patient is status post cholecystectomy. There is moderate fecal retention, without colitis. The patient has a history of C. difficile colitis, but no evidence of colitis by scan this morning. The patient had an increase in dosage of quetiapine earlier this week, from 50 to 100 mg. This may have perpetuated a mild drug-induced pancreatitis. Without evidence of infection, inflammatory reaction sepsis, etc., he should do well. Will decrease quetiapine, follow a liquid diet for 48 hours, advance as tolerated. Return for worsening symptoms despite the above. Junior Programmer demonstrates understanding Lab Data 03/19/25 00:09 03/19/25 00:09 Labs/Radiology: Radiology Impressions Abdomen/Pelvis CT 03/19/25 00:15 IMPRESSION: 1. Moderate fecal retention, correlate for constipation. 2. Hepatic steatosis. 3. Cholecystectomy. Laboratory Results WBC 12.42 10^3/uL (3.29-11.43) H 03/19/25 00:09 RBC 5.12 10^6/uL (3.85-5.65) 03/19/25 00:09 Hgb 15.70 g/dL (11.27-16.99) 03/19/25 00:09 Hct 45.6 % (37-53) 03/19/25 00:09 MCV 89.1 fl (82-101) 03/19/25 00:09 MCH 30.7 pg (27-33) 03/19/25 00:09 MCHC 34.4 g/dL (30-55) 03/19/25 00:09 RDW 14.1 % (12.1-15.1) 03/19/25 00:09 Plt Count 229 10^3/cmm (157-399) 03/19/25 00:09 MPV 9.7 fL (7.4-10.4) 03/19/25 00:09 Neut % (Auto) 73.1 % 03/19/25 00:09 Lymph % (Auto) 20.4 % 03/19/25 00:09 [place] % (Auto) 4.7 % 03/19/25 00:09 Eos % (Auto) 1.2 % 03/19/25 00:09 Baso % (Auto) 0.4 % 03/19/25 00:09 Neut # (Auto) 9.09 10^3/uL (1.8-7.7) H 03/19/25 00:09 Lymph # (Auto) 2.5 10^3/uL (0.8-4.8) 03/19/25 00:09 [place] # (Auto) 0.6 10^3/uL (0.2-0.9) 03/19/25 00:09 Eos # (Auto) 0.2 10^3/uL (0.0-0.8) 03/19/25 00:09 Baso # (Auto) 0.1 10^3/uL (0.0-0.1) 03/19/25 00:09 Nucleated RBC % (auto) 0 % 03/19/25 00:09 Nucleated RBCs # 0.0 /100WBC 03/19/25 00:09 Sodium 141 mmol/L (136-145) 03/19/25 00:09 Potassium 3.3 mmol/L (3.5-5.1) L 03/19/25 00:09 Chloride 103 mmol/L (98-107) 03/19/25 00:09 Carbon Dioxide 25 mmol/L (22-29) 03/19/25 00:09 Anion Gap 16.3 (5-19) 03/19/25 00:09 BUN 13 mg/dL (8-23) 03/19/25 00:09 Creatinine 0.5 mg/dL (0.7-1.2) L 03/19/25 00:09 GFR Calculation Not Reportable 03/19/25 00: Glucose 145 mg/dL (65-115) H 03/19/25 00:09 Calculated Osmolality 295 mOsm/kg (285-295) 03/19/25 00:09 Lactic Acid 1.3 mmol/L (0.5-2.2) 03/19/25 00:09 Calcium 9.3 mg/dL (8.5-10.5) 03/19/25 00:09 Magnesium 2.3 mg/dL (1.7-2.3) 03/19/25 00:09 Total Bilirubin 0.7 mg/dL (0.15-1.2) 03/19/25 00:09 AST 16 U/L (0-40) 03/19/25 00:09 ALT 7 U/L (0-41) 03/19/25 00:09 Alkaline Phosphatase 139 U/L (40-130) H 03/19/25 00:09 C-Reactive Protein 3.0 mg/L (0.0-4.9) 03/19/25 00:09 Total Protein 7.5 g/dL (6.6-8.7) 03/19/25 00:09 Albumin 4.6 g/dL (3.5-5.2) 03/19/25 00:09 Globulin 2.9 g/dL (1.3-4.6) 03/19/25 00:09 Lipase 700 U/L (13-60) H 03/19/25 00:09 Urine Color Yellow (Yellow) 03/19/25 01:10 Urine Appearance Cloudy (CLEAR) A 03/19/25 01:10 Urine pH 6.5 (5-7) 03/19/25 01:10 Ur Specific [place] 1.016 (1.005-1.030) 03/19/25 01:10 Urine Protein Negative (Negative) 03/19/25 01:10 Urine Glucose (UA) Negative (Normal) 03/19/25 01:10 Urine Ketones Negative (Negative) 03/19/25 01:10 Urine Blood Negative (Negative) 03/19/25 01:10 Urine Nitrate Positive (Negative) A 03/19/25 01:10 Urine Bilirubin Negative (Negative) 03/19/25 01:10 Urine Urobilinogen 1.0 mg/dL (Negative) 03/19/25 01:10 Ur Leukocyte Esterase 3+ (Negative) A 03/19/25 01:10 Urine RBC 0-2 /hpf (0-2) 03/19/25 01:10 Urine WBC >100 /hpf (0-5) H 03/19/25 01:10 Ur Squamous Epith Cells 0-5 /hpf (0-5) 03/19/25 01:10 Amorphous Sediment Not Reportable 03/19/25 01:10 Urine Bacteria 4+ /hpf (NONE) H 03/19/25 01:10 Hyaline Casts 1.65 /lpf 03/19/25 01:10 Urine Sperm 1+ /hpf 03/19/25 01:10 All radiology interpretation(s) finalized by discharge Discharge Plan Discharge Patient Disposition: Home Clinical Impression: Pancreatitis Qualifiers: Chronicity: acute Pancreatitis type: unspecified pancreatitis type Acute pancreatitis complication: no infection or necrosis Qualified Code(s): K85.90 - Acute pancreatitis without necrosis or infection, unspecified Condition: Stable Prescriptions: No Action carbidopa-levodopa 25-100 mg tablet 1 tab PO 5XD melatonin 5 mg capsule 10 mg PO QPM ipratropium-albuterol 0.5 mg-3 mg(2.5 mg base)/3 mL solution for nebulization 3 ml inhalation Q4H PRN (Reason: wheezing) Qty: 180 6RF amantadine HCl 100 mg capsule 100 mg PO BID quetiapine 25 mg tablet 25 mg PO BID bupivacaine (PF) 0.25 % (2.5 mg/mL) solution 2 ml Infiltration ONCE Qty: 1 0RF dexamethasone sodium phos (PF) 10 mg/mL solution 8 mg Infiltration ONCE Qty: 0.8 0RF ropinirole 0.5 mg tablet 0.5 mg PO TID trazodone 50 mg tablet 50 mg PO DAILY silver sulfadiazine [Silvadene] 1 % cream 1 applic topical DAILY Qty: 20 0RF Rx Instructions: apply a 1.5 mm thickness ropinirole 1 mg tablet 1 mg PO TID loperamide [Imodium A-D] 2 mg tablet 2 mg PO Q6H PRN (Reason: loose stool) Qty: 20 0RF oxycodone-acetaminophen 5-325 mg tablet 1 tab PO Q4H PRN (Reason: pain) 7 Days Qty: 40 0RF (DME) quinn balance brace See Rx Instructions .Route .MEDSUPPLY Qty: 1 0RF Rx Instructions: As directed omeprazole 40 mg capsule,delayed release(DR/EC) See Rx Instructions .ROUTE .COMPLEX Qty: 90 3RF Dose Instruction: TAKE 1 CAPSULE DAILY Rx Instructions: TAKE 1 CAPSULE DAILY tamsulosin 0.4 mg capsule See Rx Instructions .ROUTE .COMPLEX Qty: 180 3RF Dose Instruction: TAKE 1 CAPSULE TWICE A DAY Rx Instructions: TAKE 1 CAPSULE TWICE A DAY gabapentin 600 mg tablet 600 mg PO BID 90 Days Qty: 180 1RF finasteride 5 mg tablet See Rx Instructions .ROUTE .COMPLEX Qty: 90 3RF Dose Instruction: TAKE 1 TABLET DAILY Rx Instructions: TAKE 1 TABLET DAILY methenamine hippurate 1 gram tablet See Rx Instructions .ROUTE .COMPLEX Qty: 180 3RF Dose Instruction: TAKE ONE TABLET BY MOUTH TWICE A DAY ALONG WITH THE 1000MG OF VITAMIN C. Rx Instructions: TAKE ONE TABLET BY MOUTH TWICE A DAY ALONG WITH THE 1000MG OF VITAMIN C. ondansetron 4 mg tablet,disintegrating 4 mg PO Q6H PRN (Reason: nausea and vomiting) Qty: 14 0RF Discharge Orders: Discharge ED (Routine); Ordered 03/19/25 Ordered By: Aureliano Best Referrals: Saúl Su MD [Primary Care Provider, [facility]] - 1-3 days Patient Instructions: Pancreatitis (ED), Abdominal Pain (ED), Opioid Safety, Pain Management, Patient Portal & Maye Instructions Activity Restrictions/Additional Instructions: You were found to have mild pancreatitis, which may be due to the increased dose of quetiapine. Decrease dosage as we discussed. Follow a liquid diet for the next 48 hours. As pain improves, and if no fever, you may advance as tolerated at that point. Return for fever greater than 100 ?F, vomiting liquids or medications, worsening pain despite this, any other concerning symptoms. You should have the lipase pancreas enzyme redrawn at some point this week. Call your doctor later this morning for a follow-up appointment. Print Language: Hungarian Coding Level of Care Code ED Direct Mail Manager for Rashaad Gardner
[2025-03-19 00:32] VITALS: BP 136/86
[2025-03-19 00:32] LABS: Alanine Aminotransferase 7 U/L (0-41); Albumin Level 4.6 g/dL (3.5-5.2); Alkaline Phosphatase 139 U/L (40-130); Anion Gap 16.3 (5-19); Aspartate Amino Transferase 16 U/L (0-40); Blood Urea Nitrogen 13 mg/dL (8-23); Calcium 9.3 mg/dL (8.5-10.5); Carbon Dioxide 25 mmol/L (22-29); Chloride 103 mmol/L (98-107); Creatinine Clr Calc Pharmacy 76.8196; Globulin 2.9 g/dL (1.3-4.6); Glucose 145 mg/dL (65-115); Magnesium 2.3 mg/dL (1.7-2.3); Osmolality Calculated 295 mOsm/kg (285-295); Potassium 3.3 mmol/L (3.5-5.1); Sodium 141 mmol/L (136-145); Total Protein 7.5 g/dL (6.6-8.7)
[2025-03-19 00:34] LABS: Lactic Sepsis W/Reflex 1.3 mmol/L (0.5-2.2)
[2025-03-19 00:41] LABS: Lipase 700 U/L (13-60)
[2025-03-19 01:29] LABS: Glucose Urine UA Negative (Normal); Nitrate Urine Positive (Negative); Specific Gravity, Urine 1.016 (1.005-1.030)
[2025-03-19 01:34] LABS: Add Urine Microscopic? YES; Universal Test for UA Present (0)
[2025-03-19] MEDS: ondansetron 2 mg/ML SDV 2 mL 4 MG IVP (01:59)
[2025-03-19 02:04] VITALS: BP 149/86; O2SAT 99
[2025-03-19 03:05] VITALS: BP 185/92; PULSE 79; O2SAT 98
== END 2025-03-19 03:09 | disposition home or self-care (01) ==
PROVIDERS: Emergency Provider Emergency Medicine; PCP Family Medicine
DX: K85.90 Acute pancreatitis without necrosis or infection, unspecified (principal); Z87.891 Personal history of nicotine dependence; E11.40 Type 2 diabetes mellitus with diabetic neuropathy, unspecified
CPT/HCPCS: 74177; 80053; 81001; 83605; 83690; 83735; 85025; 86140; 87077; 87086; 87186; 96361; 96374; 96375; 99285; 99291; J1885; J2405; J7030

== ENCOUNTER 2025-03-29 08:30 | Inpatient (IN) | payer MEDICARE, SELFPAY ==
--- OUTSIDE RECORDS SUMMARY | 2025-03-12 11:00 | XMS_ITS ---
Author Organization [employer] [facility], [place] Address [address] [place] [address] Care Team Providers Care Sr. Payroll Manager Name Role Phone Georges LEE, Saúl Primary Care Provider Elsia EMMIE Welsh Unavailable [phone] REASON FOR VISIT 6 mo w/ bmp/psa Encounters Encounter Location Date Provider Diagnosis [facility] [address] [place] [address] 03/12/2025 EMMIE CHILEL Plan Of Treatment No Information Progress Notes * Kali CASTRODOB:[birth year] (74 yo M)Acc No.[id number]:03/12/2025 Progress Notes Patient: Kali COVARRUBIAS Provider: Amy Chilel APRN :1950 A ge:74 Y S ex:Male Date:03/12/2025 Address:[address] [place] [address] [address], [place], [id number] Pcp:Saúl Su MD Subjective: * Chief Complaints: * 1 . 6 mo w/ bmp/psa. * Medical History: Objective: * Vitals: Assessment: Plan: * Treatment: * Billing Information: * Visit Code: * Procedure Codes: * Electronic signature of MISAEL CHILEL APRN on 03/29/2025 at 09:16 AM SINGE WINDER Sign off status: Pending * Provider: Amy Chilel APRN Date: 05/12/2024 Generated for Troy becker/Kimberli/Jamee on: 1 05/29/2024 09:16 AM SINGE WINDER
[2025-03-29] VITALS (10 sets, daily range): BP systolic 102–166; BP diastolic 70–111; PULSE 81–90; RESP 16–18; TEMP 36.6–36.8; O2SAT 96–100; BMI 22.0
[2025-03-29 08:53] LABS: Hematocrit 46.6 % (37-53); Hemoglobin 15.60 g/dL (11.27-16.99); Mean Corpuscular HGB Conc 33.5 g/dL (30-55); Mean Corpuscular Hemoglobin 31.0 pg (27-33); Mean Corpuscular Volume 92.6 fl (82-101); Nucleated Red Blood Cells % 0 %; Platelet Count 208 10^3/cmm (157-399); Red Blood Count 5.03 10^6/uL (3.85-5.65); White Blood Count 12.68 10^3/uL (3.29-11.43)
--- NOTE | 2025-03-29 08:54 | CT_ITS ---
WS: [id number] CT CERVICAL TRAUMA TECHNIQUE: Noncontrast CT of the cervical spine with coronal and sagittal reformatted images. CLINICAL INFORMATION: Trauma COMPARISON: None. DLP: 249.[address] scans at [facility] use at least one of these dose optimization techniques: automated exposure control; mA and/or kV adjustment per patient size (includes targeted exams where dose is matched to clinical indication); or iterative reconstruction. FINDINGS: Straightening with slight reversal of the normal cervical lordosis. Mild spondylitic changes. Slight anterolisthesis C2 on C3 and C3 on C4. Disc narrowing worse at C4-C7 with anterior hypertrophic changes. Calcification of the nuchal ligament. Normal craniocervical junction. Normal C1-C2 articulation. Dens is normal in appearance. Normal occipital condyles. Mild central canal stenosis C4-C6. Normal C1 ring. No evidence of acute fracture or dislocation. Normal prevertebral soft tissues. Carotid bulb calcification Mastoids air cells are well aerated. A few hazy groundglass opacities in the RIGHT lung apex partially visualized CT/CT cervical spin wo con* [id number] IMPRESSION: 1. No evidence of acute fracture or dislocation. 2. A few hazy groundglass opacities in the RIGHT lung apex
--- NOTE | 2025-03-29 08:54 | CT_ITS ---
WS: [id number] CT HEAD TECHNIQUE: Noncontrast CT of the head obtained from the skullbase to the vertex. CLINICAL INFORMATION: Trauma COMPARISON: CT 06/08/2024 DLP: 1169.[address] scans at [facility] use at least one of these dose optimization techniques: automated exposure control; mA and/or kV adjustment per patient size (includes targeted exams where dose is matched to clinical indication); or iterative reconstruction. FINDINGS: No evidence of intracranial hemorrhage or mass effect. Ventricular system and basal cisterns are patent. Moderate small vessel changes with moderate parenchymal volume loss. No extra-axial fluid collections. No evidence of mass or mass effect. Vascular calcification. Paranasal sinuses and mastoid air cells are well aerated. .Normal visualized soft tissues. CT/CT head wo con* [id number] IMPRESSION: 1. No evidence of intracranial hemorrhage or mass effect. 2. No acute intracranial findings.
--- NOTE | 2025-03-29 08:54 | W.ED.WEAKNES ---
HPI - Weakness General: Chief complaint: Weakness Stated complaint: fall History of Present Illness: 74-year-old male presents emerged from he has increasing weakness over the last several days has a history of Parkinson's and dementia he fell today states he hit his head on a door frame he was able to get back up he reports no loss of consciousness no vomiting. He is having increased difficulty with gait and balance due to his Parkinson's. He is not on any anticoagulants. No family here at this time to corroborate or assist with history. He denies any pain in his lower extremities. He does complain a little bit of discomfort in his arms but can move his upper extremities both actively and passively without significant pain. Associated symptoms: Denies chest pain, chills, dysuria or fever(s) Related Data Home Medications ?Medication ?Instructions ?Recorded ?Confirmed carbidopa 25 mg-levodopa 100 mg 1 tab PO 5XD 10/31/19 02/06/25 tablet amantadine HCl 100 mg capsule 100 mg PO BID 05/16/20 02/06/25 melatonin 5 mg capsule 10 mg PO QPM 11/27/20 02/06/25 quetiapine 25 mg tablet 25 mg PO BID 11/27/20 02/06/25 ropinirole 0.5 mg tablet 0.5 mg PO TID 11/27/20 02/06/25 trazodone 50 mg tablet 50 mg PO DAILY 11/27/20 02/06/25 ropinirole 1 mg tablet 1 mg PO TID 08/26/21 02/06/25 Previous Rx's ?Medication ?Instructions ?Recorded ipratropium 0.5 mg-albuterol 3 mg 3 ml inhalation Q4H PRN wheezing 07/01/20 (2.5 mg base)/3 mL nebulization #180 mL soln omeprazole 40 mg capsule,delayed See Rx Instructions .Route 08/06/21 release .COMPLEX #90 caps ondansetron 4 mg disintegrating 4 mg PO Q6H PRN nausea and 08/15/21 tablet vomiting #14 tabs loperamide 2 mg tablet (Imodium 2 mg PO Q6H PRN loose stool #20 08/26/21 A-D) tabs oxycodone-acetaminophen 5 mg-325 1 tab PO Q4H PRN pain 7 days #40 08/27/21 mg tablet tabs gabapentin 600 mg tablet 600 mg PO BID 90 days #180 tabs 11/11/21 tamsulosin 0.4 mg capsule See Rx Instructions .Route 11/11/21 .COMPLEX #180 caps finasteride 5 mg tablet See Rx Instructions .Route 12/30/21 .COMPLEX #90 tabs silver sulfadiazine 1 % topical 1 applic topical DAILY #20 grams 04/23/22 cream (Silvadene) methenamine hippurate 1 gram tablet See Rx Instructions .Route 08/26/22 .COMPLEX #180 tabs quinn balance brace #1 ea 12/27/23 Allergies Allergy/AdvReac Type Severity Reaction Status Date / Time latex Allergy ALGY-Hives Verified 03/18/25 23:47 Review of Systems Const: Denies: fever(s) or chills Card: Denies: chest pain Resp: Denies: dyspnea GI: Denies: abdominal pain : Denies: dysuria, urinary frequency or urinary urgency Musc: Denies: neck pain or back pain Skin/Breast: Denies: rash PFSH ED PFSH: Medical History C. difficile diarrhea Chronic diarrhea Chronic GERD Neuropathy Type 2 diabetes mellitus Hypercholesteremia Urinary retention BPH with obstruction/lower urinary tract symptoms Surgical History Hx of sigmoidoscopy (06/11/20) incomplete due to poor prep Status post colonoscopy (08/13/20) diverticulosis Hx of cholecystectomy Family History Mother Congestive heart failure (CHF) Social History Smoking and tobacco/nicotine status: former use of tobacco/nicotine Alcohol intake: former Substance/Drug Use: never Marital status: Current occupational status: retired Do you think of yourself as: Straight/Heterosexual Physical Exam Const: COMMON NORMALS: no acute distress GENERAL APPEARANCE: cooperative and comfortable ORIENTATION/CONSCIOUSNESS: Yes awake, Yes oriented to person, Yes oriented to place and Yes oriented to time HENMT: COMMON NORMALS: normocephalic, atraumatic and hearing grossly normal bilaterally HEAD & SCALP: normocephalic and atraumatic Resp: COMMON NORMALS: normal respiratory effort, No retractions, No use of accessory muscles and clear to auscultation bilaterally AUSCULTATION: clear to auscultation bilaterally Cardio: COMMON NORMALS: regular rate, regular rhythm and No murmurs present (Cardio) RATE: regular rate RHYTHM: regular rhythm GI: COMMON NORMALS: Soft to palpation and No hepatosplenomegaly present AUSCULTATION: Yes normoactive bowel sounds PALPATION: Yes Soft to palpation, No Tenderness to palpation present (GI), No Guarding due to palpation present (GI) and Yes No hepatosplenomegaly present Extremity: COMMON NORMALS: normal to inspection, capillary refill normal, no clubbing, cyanosis or edema, no calf tenderness and no pedal edema Neuro: SENSORIUM/ORIENTATION: Yes oriented to person, Yes oriented to place and Yes oriented to time Skin: COMMON NORMALS: no rashes or lesions noted GENERAL SKIN EXAM: no rashes or lesions noted Course Vital Signs: Vital signs: Vital Signs Temperature 98.0 F 03/29/25 08:43 Pulse Rate 87 03/29/25 09:54 Respiratory Rate 16 03/29/25 09:54 Blood Pressure 166/111 03/29/25 09:54 Pulse Oximetry 98 03/29/25 09:54 Oxygen Delivery Me thod Room Air 03/29/25 09:54 Oxygen Flow Rate 2 03/29/25 08:43 MDM - Weakness Lab Data 03/29/25 08:45 03/29/25 08:45 Radiology Impressions Cervical Spine CT 03/29/25 08:54 IMPRESSION: 1. No evidence of acute fracture or dislocation. 2. A few hazy groundglass opacities in the RIGHT lung apex Head CT 03/29/25 08:54 IMPRESSION: 1. No evidence of intracranial hemorrhage or mass effect. 2. No acute intracranial findings. Laboratory Results WBC 12.68 10^3/uL (3.29-11.43) H 03/29/25 08:45 RBC 5.03 10^6/uL (3.85-5.65) 03/29/25 08:45 Hgb 15.60 g/dL (11.27-16.99) 03/29/25 08:45 Hct 46.6 % (37-53) 03/29/25 08:45 MCV 92.6 fl (82-101) 03/29/25 08:45 MCH 31.0 pg (27-33) 03/29/25 08:45 MCHC 33.5 g/dL (30-55) 03/29/25 08:45 RDW 14.6 % (12.1-15.1) 03/29/25 08:45 Plt Count 208 10^3/cmm (157-399) 03/29/25 08:45 MPV 10.1 fL (7.4-10.4) 03/29/25 08:45 Neut % (Auto) 82.0 % 03/29/25 08:45 Lymph % (Auto) 11.4 % 03/29/25 08:45 [place] % (Auto) 5.1 % 03/29/25 08:45 Eos % (Auto) 0.8 % 03/29/25 08:45 Baso % (Auto) 0.4 % 03/29/25 08:45 Neut # (Auto) 10.40 10^3/uL (1.8-7.7) H 03/29/25 08:45 Lymph # (Auto) 1.4 10^3/uL (0.8-4.8) 03/29/25 08:45 [place] # (Auto) 0.7 10^3/uL (0.2-0.9) 03/29/25 08:45 Eos # (Auto) 0.1 10^3/uL (0.0-0.8) 03/29/25 08:45 Baso # (Auto) 0.1 10^3/uL (0.0-0.1) 03/29/25 08:45 Nucleated RBC % (auto) 0 % 03/29/25 08:45 Nucleated RBCs # 0.0 /100WBC 03/29/25 08:45 Sodium 141 mmol/L (136-145) 03/29/25 08:45 Potassium 4.0 mmol/L (3.5-5.1) 03/29/25 08:45 Chloride 107 mmol/L (98-107) 03/29/25 08:45 Carbon Dioxide 24 mmol/L (22-29) 03/29/25 08:45 Anion Gap 14.0 (5-19) 03/29/25 08:45 BUN 26 mg/dL (8-23) H 03/29/25 08:45 Creatinine 0.6 mg/dL (0.7-1.2) L 03/29/25 08:45 GFR Calculation Not Reportable 03/29/25 08:45 Glucose 112 mg/dL (65-115) 03/29/25 08:45 Calculated Osmolality 298 mOsm/kg (285-295) H 03/29/25 08:45 Calcium 9.1 mg/dL (8.5-10.5) 03/29/25 08:45 Total Bilirubin 1.0 mg/dL (0.15-1.2) 03/29/25 08:45 AST 78 U/L (0-40) H 03/29/25 08:45 ALT 88 U/L (0-41) H 03/29/25 08:45 Alkaline Phosphatase 198 U/L (40-130) H 03/29/25 08:45 Total Protein 7.1 g/dL (6.6-8.7) 03/29/25 08:45 Albumin 4.2 g/dL (3.5-5.2) 03/29/25 08:45 Globulin 2.9 g/dL (1.3-4.6) 03/29/25 08:45 Amorphous Sediment Not Reportable 03/29/25 09:13 Discharge Plan Discharge Condition: Stable Prescriptions: No Action carbidopa-levodopa 25-100 mg tablet 1 tab PO 5XD melatonin 5 mg capsule 10 mg PO QPM ipratropium-albuterol 0.5 mg-3 mg(2.5 mg base)/3 mL solution for nebulization 3 ml inhalation Q4H PRN (Reason: wheezing) Qty: 180 6RF amantadine HCl 100 mg capsule 100 mg PO BID quetiapine 25 mg tablet 25 mg PO BID bupivacaine (PF) 0.25 % (2.5 mg/mL) solution 2 ml Infiltration ONCE Qty: 1 0RF dexamethasone sodium phos (PF) 10 mg/mL solution 8 mg Infiltration ONCE Qty: 0.8 0RF ropinirole 0.5 mg tablet 0.5 mg PO TID trazodone 50 mg tablet 50 mg PO DAILY silver sulfadiazine [Silvadene] 1 % cream 1 applic topical DAILY Qty: 20 0RF Rx Instructions: apply a 1.5 mm thickness ropinirole 1 mg tablet 1 mg PO TID loperamide [Imodium A-D] 2 mg tablet 2 mg PO Q6H PRN (Reason: loose stool) Qty: 20 0RF oxycodone-acetaminophen 5-325 mg tablet 1 tab PO Q4H PRN (Reason: pain) 7 Days Qty: 40 0RF (DME) quinn balance brace See Rx Instructions .Route .MEDSUPPLY Qty: 1 0RF Rx Instructions: As directed omeprazole 40 mg capsule,delayed release(DR/EC) See Rx Instructions .ROUTE .COMPLEX Qty: 90 3RF Dose Instruction: TAKE 1 CAPSULE DAILY Rx Instructions: TAKE 1 CAPSULE DAILY tamsulosin 0.4 mg capsule See Rx Instructions .ROUTE .COMPLEX Qty: 180 3RF Dose Instruction: TAKE 1 CAPSULE TWICE A DAY Rx Instructions: TAKE 1 CAPSULE TWICE A DAY gabapentin 600 mg tablet 600 mg PO BID 90 Days Qty: 180 1RF finasteride 5 mg tablet See Rx Instructions .ROUTE .COMPLEX Qty: 90 3RF Dose Instruction: TAKE 1 TABLET DAILY Rx Instructions: TAKE 1 TABLET DAILY methenamine hippurate 1 gram tablet See Rx Instructions .ROUTE .COMPLEX Qty: 180 3RF Dose Instruction: TAKE ONE TABLET BY MOUTH TWICE A DAY ALONG WITH THE 1000MG OF VITAMIN C. Rx Instructions: TAKE ONE TABLET BY MOUTH TWICE A DAY ALONG WITH THE 1000MG OF VITAMIN C. ondansetron 4 mg tablet,disintegrating 4 mg PO Q6H PRN (Reason: nausea and vomiting) Qty: 14 0RF Referrals: Saúl Su MD [Primary Care Provider, Family Practice] Print Language: Dominican Coding Level of Care Code ED Stranding Machine Operator Helper for Rashaad Gardner
--- OUTSIDE RECORDS SUMMARY | 2025-03-29 09:15 | XMS_ITS | Continuity of Care Document ---
Author Organization SUNNY Rodriguez [facility] [place] Lizandro Logan, 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 Plan of Treatment Reminders Order Date Submit Date Provider Last Modified By Organization Details Last Modified Time Details Appointments None recorded. Lab PSA, serum or plasma - ORDERED BY [facility]/ WILL FAX YF 2024 [employer] [facility], [address] [place], [address], 07:22:22 BMP, serum or plasma - ORDERED BY [facility]/ WILL FAX YF 2024 025 [address] [facility], [address] [facility], [place], [address], 17:11:32 Referral None recorded. Procedures None recorded. Surgeries None recorded. Imaging None recorded. Medication Orders None recorded. Patient TargetsNo targets recorded. Patient InstructionsNo instructions recorded. Reason for Referral None Reported. Results Created Date Observation Date Name Description Value Unit Range Abnormal Flag Note LastModifiedBy Organization Detail LastModifiedTime 03/07/2003/07/2025 BMP (MALE ) glucose 136.0 mg/dL 60.0-9 9.0 high Not Available [facility] [address] [facility] [address], [place], [address], 03/07/2025 17:11:32 03/07/2003/07/2025 BMP (MALE ) BUN (blood urea nitrogen) 18.0 mg/dL 10.0-2 6.0 Not Available [facility] [address] [facility], [place], [address], 03/07/2025 17:11:32 03/07/20 25 03/07/2025 BMP (MALE ) creatinine (serum) 0.7 mg/dL 0.4-1. 5 Not Available [facility] [address] [facility] [address], [place], [address], 03/07/2025 17:11:32 03/07/20 25 03/07/2025 BMP (MALE ) BUN/creatini ne ratio 25.71 ratio Not Available [facility] [address] [facility] [address], [place], [address], 03/07/2025 17:11:32 03/07/20 25 03/07/2025 BMP (MALE ) calcium 9.4 mg/dL 8.4-10 .5 Not Available [facility] [address] [facility] [address], [place], [address], 03/07/2025 17:11:32 03/07/20 25 03/07/2025 BMP (MALE ) sodium 139.0 mmol/ L 136.0- 145.0 Not Available [facility] [address] [facility] [address], [place], [address], 03/07/2025 17:11:32 03/07/20 25 03/07/2025 BMP (MALE ) potassium 4.1 mmol/ L 3.5-5. 1 Not Available [facility] [address] [facility] [address], [place], [address], 03/07/2025 17:11:32 03/07/20 25 03/07/2025 BMP (MALE ) chloride 102.0 mmol/ L 98.0-1 10.0 normal Not Available [facility] [address] [facility], [place], [address], 03/07/2025 17:11:32 03/07/20 25 03/07/2025 BMP (MALE ) C02 28.0 mmol/ L 22.0-3 1.0 Not Available [facility] [address] [facility] [address], [place], [address], 03/07/2025 17:11:32 03/07/20 25 03/08/2025 PSA, TOTAL [...] This test was perfo rmed using the [employer] chemi lumin escen t metho d. Value s obtai radha from diffe rent assay metho ds canno t be used inter christopher jai . PSA level s, regar dless of value , shoul d not be inter prete d as absol [place] evide nce of the prese nce or absen ce of disea se. Not Available [facility] [address] [place], [address], 03/08/2025 07:22:22 Result Notes None recorded. Problems Name Problem SNOMED Code Status Onset Date Resolution Date Notes Provider Name and Address Organization Details Recorded Time Anxiety 92414823 Active 2021 Dori Su MD [address] [place], [address], [place] - [facility] 5 16:08:47 Parkinson 's disease 17697884 Active 2022 [facility] 5 15:46:43 Type 2 diabetes mellitus 99457084 Active 2022 Alina steel, [facility] 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 3 08:54:23 Anxiety disorder 387765148 Active 2022 Alina Davey milvia, [facility] 5 15:45:40 Hyperchol esterolem ia 27945597 Active 2022 Alina steel, [facility] 5 15:46:49 Gastroeso phageal reflux disease 460109042 Active 2022 [facility] 5 15:46:09 Benign prostatic hyperplas ia with outflow obstructi on 687612063 Active 2022 [facility] 5 15:45:49 Dermatoph ytosis 52874287 Active 2022 Dori Su MD [address] [place] [address], [phone] , [facility] 3 14:22:44 Skin lesion 88159696 Completed 202211/20/2024 [facility] 5 15:47:00 Diabetic periphera l neuropath y 059539883 Active 2023 [facility] 5 15:46:04 Abnormal gait 58449853 Active 2023 [facility] 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 Procedures Surgical History Date Name Laterality Status Provider Name and Address Organization Details Recorded Time 08/14/19 23 Colonoscopy completed NOVASA SANDOVAL [facility], [place] 11/19/2022 09:09:55 06/11/19 21 Flexible Sigmoidoscopy completed LABADIE LORI [facility], [place] 11/19/2022 09:09:21 Cholecystectomy completed LABADIE LORI [facility], [place] 11/19/2022 09:08:01 Imaging Results None recorded. Procedure Notes None recorded. Medical Equipment None Reported. Allergies No known drug allergies Medications Name Sig Start Date Stop Date Status Note LastModified by Organization Details LastModified Time quetiapin e 25 mg tablet TAKE 1 TABLETS BY MOUTH AT BEDTIME FOR HALLUCIN [...] 12/31/19 22 2:14PM by Xu Almonte on/Bishop garcia; Not Available Not Available Not Available ketoconaz ole 2 % shampoo LATHER ONTO SCALP 1-2 TIMES WEEKLY. ALLOW TO SIT 5 MINUTES BEFORE RINSING. active Not Available Not Available No t Available trazodone 50 mg tablet TAKE 1/2 TABLET BY MOUTH AT BEDTIME 01/04 completed Not Available Not Available Not Available clonazepa m 0.5 mg tablet Take 1 tablet twice a day by oral route. 2024 active Not Available Not Available Not Avai lable ciproflox acin 500 mg tablet 11/19 completed [...] every day by oral route as needed. 03/20 completed Not Available Not Available Not Available methenami ne hippurate 1 gram tablet TAKE 1 TABLET BY MOUTH FOUR TIMES DAILY 03/20 completed Not Available Not Available Not Available tamsulosi n 0.4 mg capsule TAKE 2 [...] by oral route for 90 days. active take each dose with 1000mg of vitamin C Not Available Not Available Not Available clobetaso l 0.05 % topical ointment [...] TAKE 1 TABLET BY MOUTH EVERY DAY active Not Available Not Available No t Available buspirone 15 mg tablet 2 times per day for anxiety disorder 11/20 completed Not Available Not Available Not Available doxazosin daily 03/20 completed Not Available Not Available Not Available pravastat in daily 11/20 completed Not Available Not Available Not Available gabapenti n two times daily 02/15 completed 0; Recorded 12/31/19 2:19PM by Nova Sandoval, Office Visit; Not Available Not Available Not Available Trazodone at bedtime 02/15 completed 0; Recorded 12/31/19 2:17PM by Nova Sandoval, Office Visit; Not Available Not Available Not Available quetiapin e 50 mg tablet TAKE 1 TABLET BY MOUTH EVERY DAY AT BEDTIME with 25mg, total dose 75mg active Not Available Not Available No t Available melatonin 5 mg tablet at bedtime active Not Available Not Available No t Available OneTouch Verio test strips use as directed to check blood sugars up to 4 x daily 2021 active Not Available Not Available Not Avai lable Vitals None Recorded Social History Question Answer Notes LastModified by Organizat ion Details LastModified Time Tobacco Smoking Status Former Smoker [facility] 11/19/2022 09:06:54 What Is Your Level Of Caffeine Consumption? Occasional Information not available 11/19/2022 What Was The Date Of Your Most Recent Tobacco Screening? 01/04/2025 [email or web address] Information not available 01/04/2025 What Is Your Current Pack Years? [email or web address] [email or web address] Information not available 11/20/2024 What Is Your [...] raine-sucrose, 30 mcg/0.3 mL 3 completed [facility] 12/28/2023 07:51:51 COVID-19, mRNA, LNP-S, PF, 30 mcg/0.3 mL dose 1 completed [facility] 11/18/2022 15:31:10 COVID-19, mRNA, LNP-S, PF, 30 mcg/0.3 mL dose 1 completed [facility] 11/18/2022 15:31:10 COVID-19, mRNA, LNP-S, PF, 30 mcg/0.3 mL dose 1 completed [facility] 11/18/2022 15:31:10 COVID-19, mRNA, LNP-S, PF, 30 mcg/0.3 mL dose, arine-sucrose 2 completed [facility] 11/18/2022 15:31:10 pneumococcal polysaccharide PPV23 2 completed NOVA LORIYehuda steel [facility] 11/18/2022 15:31:10 Tdap 1 completed NOVA LORI [facility] 11/18/2022 15:31:10 Pneumococcal conjugate PCV 13 5 completed NOVA LORI [facility] 11/18/2022 15:31:10 COVID-19, mRNA, LNP-S, PF, 50 mcg/0.5 mL 4 completed Not Available [facility] 03/20/2025 15:22:49 COVID-19, mRNA, LNP-S, PF, 10 mcg/0.2 mL 5 completed Not Available [facility] 03/20/2025 15:22:48 Past Encounters Encounter ID Performer Location Encounter Start Date Encounter Closed Date Diagnosis/Indication Diagnosis SNOMED-CT Code Diagnosis ICD10 Code Diagnosis IMO Codes Diagnosis Note [id number] Dori Su MD [facility] ([facility]) [address] [place] [phone] 03/07/2025 15:33:57 03/08/2025 10:11:39 Neurogenic urinary bladder 716646330 N31.9 404483 Screening for malignant neoplasm of prostate 472282945 Z12.5 1450903 Health Concerns Section Related Observation LastModified by Organization Detai ls LastModified Time None Recorded Concern Status LastModified by Organization Details LastModified Time None Recorded Payers Encounter Date Sequence Insurance Name Policy Number Policy Murry Covered Member ID Murry Member ID Guarantor Name 03/07/2025 1 [facility] (MEDICARE REPLACEMENT/A DVANTAGE - PPO) [id number] Kali Castro [id number] Kali Castro
--- OUTSIDE RECORDS SUMMARY | 2025-03-29 09:15 | XMS_ITS | Continuity of Care Document ---
Author Organization [facility] - Lizandro Sánchez, [facility] Address [address] [place] [address] Care Team Providers Care Crown Blocker Name Role Phone DORI SU Primary Care Provider Unavailabl e Assessment Encounter Date Assessment Date Assessment LastModified by Organization Details LastModified Time 03/20/2025 03/20/2025 74-year-old male with a history of dementia or Alzheimer s disease presenting with a new episode of acute pancreatitis and concurrent insomnia and anxiety. Insomnia and anxiety may benefit from lorazepam therapy, subject to medication history review. Continue assessment of current quetiapine dosage impact. Considers potential dietary adjustments for recent pancreatitis. [email or web address] Not available 03/21/2025 09:57:11 Plan of Treatment Reminders Order Date Submit Date Provider Last Modified By Organization Details Last Modified Time Details Appointments None recorded. Lab lipase, serum or plasma 2024 025 [facility], [address] [place] [address], [facility] [address] [place], [address], 03:53:30 Referral None recorded. Procedures None recorded. Surgeries None recorded. Imaging None recorded. Medication Orders clonazepam 0.5 mg tablet 2024 025 [id number], [address] [place], [place], [id number], 16:10:16 Patient TargetsNo targets recorded. Patient Instructions Encounter Date Encounter Id Patient Instructions Last Modified By Organization Details Last Modified Time 03/20/2025 [id number] - Follow a low-f at diet and ensure adequate hydration. - Monitor for signs of jaundice and pancreatitis recurrence; seek urgent medical care if needed. - Use assistive devices like walkers to prevent falls. - Maintain a safe environment to reduce nighttime accidents. - Consider discussing anxiety and sleep troubles, particularly alterations in your medications. [email or web address] Not available 03/20/2025 16:14:30 We discussed the nature and management of acute pancreatitis, emphasizing dietary changes and the importance of recognizing warning signs to potentially revisit ER. With regard to insomnia and anxiety, lorazepam was considered, noting the benefits in alleviating symptoms and understanding risks, particularly given previous medication history. The patient's fall hazards related to dementia or Alzheimer's disease were reviewed, recommending explicit environmental safety adjustments. We examined the possibility of adjusting quetiapine dosage to lessen tremors and potential impacts on existing conditions; ensure clear coordination concerning any new prescription. [email or web address] Not available 03/20/2025 16:14:30 Reason for Referral None Reported. Results Created Date Observation Date Name Description Value Unit Range Abnormal Flag Note LastModifiedBy Organization Detail LastModifiedTime 03/07/2003/07/2025 BMP (MALE ) glucose 136.0 mg/dL 60.0-9 9.0 high Not Available [facility] [address] [facility] [address], [place], [address], 03/07/2025 17:11:32 03/07/20 25 03/07/2025 BMP (MALE ) BUN (blood urea nitrogen) 18.0 mg/dL 10.0-2 6.0 Not Available [facility] [address] [facility] [address], [place], [address], 03/07/2025 17:11:32 03/07/20 25 03/07/2025 BMP (MALE ) creatinine (serum) 0.7 mg/dL 0.4-1. 5 Not Available [facility] [address] [place] [facility] [address], [place], [address], 03/07/2025 17:11:32 03/07/20 25 03/07/2025 BMP (MALE ) BUN/creatini ne ratio 25.71 ratio Not Available [facility] [address] [place] [facility] [address], [place], [address], 03/07/2025 17:11:32 03/07/20 25 03/07/2025 BMP (MALE ) calcium 9.4 mg/dL 8.4-10 .5 Not Available [facility] [address] [place] [facility] [address], [place], [address], 03/07/2025 17:11:32 03/07/20 25 03/07/2025 BMP (MALE ) sodium 139.0 mmol/ L 136.0- 145.0 Not Available [facility] [address] [place] [facility] [address], [place], [address], 03/07/2025 17:11:32 03/07/20 25 03/07/2025 BMP (MALE ) potassium 4.1 mmol/ L 3.5-5. 1 Not Available [facility] [address] [place] [facility] [address], [place], [address], 03/07/2025 17:11:32 03/07/20 25 03/07/2025 BMP (MALE ) chloride 102.0 mmol/ L 98.0-1 10.0 normal Not Available [facility] [address] [place] [facility] [address], [place], [address], 03/07/2025 17:11:32 03/07/20 25 03/07/2025 BMP (MALE ) C02 28.0 mmol/ L 22.0-3 1.0 Not Available [facility] [address] [place] [facility] [address], [place], [address], 03/07/2025 17:11:32 03/07/20 25 03/08/2025 PSA, TOTAL PSA, total 1.96 NG/mL < or = 4.00 normal The total PSA value from this assay aline mcbride is stand ardiz ed again st the WHO stand angela. The test resul t will be appro ximat kathy 20% lower when ethan red to the equim olar- stand ardiz ed total PSA ([place] man Coult er). Ethan rison of seria l PSA resul ts shoul d be inter prete d with this fact in mind. This test was perfo rmed using the Sieme ns chemi lumin escen t metho d. Value s obtai radha from diffe rent assay metho ds canno t be used inter christopher eably . PSA level s, regar dless of value , shoul d not be inter prete d as absol ameya evide nce of the prese nce or absen ce of disea se. Not Available [facility] [address] [place], [address], 03/08/2025 07:22:22 03/08/20 25 03/08/2025 URINA LYSIS WITH MICRO color YELLOW Not Available [facility] [address], [address], 03/08/2025 15:03:27 03/08/20 25 03/08/2025 URINA LYSIS WITH MICRO clarity CLEAR Not Available [facility] [address], [address], 03/08/2025 15:03:27 03/08/20 25 03/08/2025 URINA LYSIS WITH MICRO glu NEGATI VE Not Available [facility] [address], [address], 03/08/2025 15:03:27 03/08/20 25 03/08/2025 URINA LYSIS WITH MICRO bili NEGATI VE Not Available [facility] [address] [place] [facility] [address], [address], 03/08/2025 15:03:27 03/08/20 25 03/08/2025 URINA LYSIS WITH MICRO ket NEGATI VE Not Available [facility] [address] [place] [facility] [address], [address], 03/08/2025 15:03:27 03/08/20 25 03/08/2025 URINA LYSIS WITH MICRO S.g >1.030 1.005- 1.025 high > Not Available [facility] [address], [place], [address], 03/08/2025 15:03:27 03/08/20 25 03/08/2025 URINA LYSIS WITH MICRO pH 6.0 Not Available [facility] [address], [place], [address], 03/08/2025 15:03:27 03/08/20 25 03/08/2025 URINA LYSIS WITH MICRO pro TRACE abnormal Not Available [facility] [address], [place], [address], 03/08/2025 15:03:27 03/08/20 25 03/08/2025 URINA LYSIS WITH MICRO uro 0.2 E.U./D L Not Available [facility] [address], [place], [address], 03/08/2025 15:03:27 03/08/20 25 03/08/2025 URINA LYSIS WITH MICRO nit POSITI VE abnormal Not Available [facility] [address], [place], [address], 03/08/2025 15:03:27 03/08/20 25 03/08/2025 URINA LYSIS WITH MICRO blo NEGATI VE Not Available [facility] [address], [place], [address], 03/08/2025 15:03:27 03/08/20 25 03/08/2025 URINA LYSIS WITH MICRO lazara 1+ abnormal Not Available [facility] [address] [facility] 1, [place], [address], 03/08/2025 15:03:27 03/08/20 25 03/08/2025 URINA LYSIS WITH MICRO WBC 60-80 abnormal Not Available [facility] [address] [place] [facility] [address], [place], [address], 03/08/2025 15:03:27 03/08/20 25 03/08/2025 URINA LYSIS WITH MICRO RBC 1-2 Not Available [facility] [address] [place] [facility] [address], [place], [address], 03/08/2025 15:03:27 03/08/20 25 03/08/2025 URINA LYSIS WITH MICRO epi cells 2-3 Not Available [facility] [address] [place] [facility] [address], [place], [address], 03/08/2025 15:03:27 03/08/20 25 03/08/2025 URINA LYSIS WITH MICRO bacteria 1+ MIXED SHAQUILLE abnormal Not Available [facility] [address] [place] [facility] [address], [place], [address], 03/08/2025 15:03:27 03/08/20 25 03/08/2025 URINA LYSIS WITH MICRO other NG Not Available [facility] [address] [place] [facility] [address], [place], [address], 03/08/2025 15:03:27 03/08/20 25 03/10/2025 CULTU RE, URINE , ROUTI NE culture, urine, routine SEE NOTE CULTU RE, URINE , ROUTI NE Micro Numbe r: [id number] Test Statu s: Final Speci men [...] Cultu re Trans port Tube. Not Available [facility] [id number] [place] [address], [address], 03/10/2025 04:35:53 03/20/20 25 03/21/2025 LIPAS E lipase 27 U/L 7-60 normal Not Available [facility] [address] [place], [address], 03/21/2025 03:53:30 Result Notes None recorded. Problems Name Problem SNOMED Code Status Onset Date Resolution Date Notes Provider Name and Address Organization Details Recorded Time Anxiety 32322989 Active 2021 Dori Su MD [address] [place] [address], [phone] [place] [address], [facility] 5 16:08:47 Parkinson 's disease 49648212 Active 2022 Alina steel [facility] 5 15:46:43 Type 2 diabetes mellitus 68686071 Active 2022 Alina steel [facility] 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 3 08:54:23 Anxiety disorder 853269533 Active 2022 Alina steel [facility] 5 15:45:40 Hyperchol esterolem ia 07642083 Active 2022 Alina setel [facility] 5 15:46:49 Gastroeso phageal reflux disease 889178963 Active 2022 Alina steel [facility] 5 15:46:09 Benign prostatic hyperplas ia with outflow obstructi on 615911756 Active 2022 Alina steel [facility] 5 15:45:49 Dermatoph ytosis 33589102 Active 2022 Dori Su MD [address] [place] [address], [address], [facility] 3 14:22:44 Skin lesion 06901951 Completed 202211/20/2024 Alina steel [facility] 5 15:47:00 Diabetic periphera l neuropath y 133733700 Active 2023 Alina steel [facility] 5 15:46:04 Abnormal gait 48502010 Active 2023 Alina steel [facility] 5 15:45:33 Memory impairmen t 783525876 Active 2024 Dori Su MD [address] [place] [address], [address], [facility] 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 5 21:24:57 Acute pancreati tis 490339831 Active 2024 Dori Su MD [address] [place] [phone], [facility] 5 16:04:43 Problem Notes None recorded. Procedures Surgical History Date Name Laterality Status Provider Name and Address Organization Details Recorded Time 08/14/19 23 [facility]/19/2022 09:09:55 06/11/19 Flexible Sigmoidoscopy completed [facility]AL [facility]/19/2022 09:09:21 Cholecystectomy completed [place] [facility] 11/19/2022 09:08:01 Imaging Results None recorded. Procedure [...] 0; Recorded 12/31/19 22 2:19PM by Nova Sandoval, Office Visit; Not Available Not Available Not Available Trazodone at bedtime 02/15 completed 0; Recorded 12/31/19 22 2:17PM by Nova Sandoval, Office Visit; Not [...] mass index (BMI) Body weight Oxygen saturation Heart rate Respiratory rate Body temperature Systolic And Diastolic Provider Name and Address Organization Details Last Updated DateTime 5 172.72 cm 25.7 kg/m2 79139.1 1 g 97 % 75 /min 18 /min 96.8 [degF] 122/74 mm[Hg] Alina Davey [facility] 5 15:31:10 Social History Question Answer Notes LastModified by TRA Details LastModified Time Tobacco Smoking Status Former Smoker NOVA LORIYehuda steel [facility] 11/19/2022 09:06:54 What Is Your Level Of Caffeine Consumption? Occasional Information not available 11/19/2022 What Was The Date Of Your Most Recent Tobacco Screening? 01/04/2025 [email or web address] Information not available 01/04/2025 What Is Your Current Pack Years? [email or web address] ars [email or web address] Information not available 11/20/2024 What Is Your Relationship Status? Information not available 11/19/2022 Do You Use Your Seat Belt Or Car Seat Routinely? Yes Information not available 11/19/2022 Have You Recently Traveled Abroad? No Information not available 11/19/2022 Sex: Unknown Functional Status Question Answer Note LastModified by Luq[facility]iz[facility] Well Details LastModified Time Do you use any [...] 30 mcg/0.3 mL 3 completed Juana [facility] 12/28/2023 07:51:51 COVID-19, mRNA, LNP-S, PF, 30 mcg/0.3 mL dose 1 completed NOVA steel [facility], AlexLArtCArt 11/18/2022 15:31:10 COVID-19, mRNA, LNP-S, PF, 30 mcg/0.3 mL dose 1 completed NOVA steel [facility], LArtLArtCArt 11/18/2022 15:31:10 COVID-19, mRNA, LNP-S, PF, 30 mcg/0.3 mL dose 1 completed NOVA steel [facility] 11/18/2022 15:31:10 COVID-19, mRNA, LNP-S, PF, 30 mcg/0.3 mL dose, raine-sucrose 2 completed NOVA steel [facility] 11/18/2022 15:31:10 pneumococcal polysaccharide PPV23 2 completed NOVA steel [facility] LArtLArtCA[facility] 11/18/2022 15:31:10 Tdap 1 completed NOVA steel [facility], LArtLArtCArt 11/18/2022 15:31:10 Pneumococcal conjugate PCV 13 5 completed NOVA steel [facility] LArt[facility]rt[facility]. 11/18/2022 15:31:10 COVID-19, mRNA, LNP-S, PF, 50 mcg/0.5 mL 4 completed Not Available [facility] 03/20/2025 15:22:49 COVID-19, mRNA, LNP-S, PF, 10 mcg/0.2 mL 5 completed Not Available [facility] 03/20/2025 15:22:48 Past Encounters Encounter ID Performer Location Encounter Start Date Encounter Closed Date Diagnosis/Indication Diagnosis SNOMED-CT Code Diagnosis ICD10 Code Diagnosis IMO Codes Diagnosis Note [id number] Dori Su MD [facility] [address] [place] [address] 03/07/2025 15:33:57 03/08/2025 10:11:39 Neurogenic urinary bladder 713189441 N31.9 211285 Screening for malignant neoplasm of prostate 468685431 Z12.5 8982754 [id number] Dori Su MD [facility] [address] [place] [phone] 03/20/2025 15:21:46 03/20/2025 16:34:03 Acute pancreatitis 662711307 K85.90 [id number] - Educated patient regarding dietary management focusing on low-fat intake. Anxiety 87274828 F41.9 87620 - Considerat ion of lorazepam prescripti on for symptom relief, adjust based on existing medication interactio ns. Dementia d ue to Parkinson's disease 2919983813 85181 G20.A1 F02.B11 2092639064 - Evaluate quetiapine dosage adjustment s for better safety and cognitive management .- Emphasize safe environmen t setups to mitigate fall risks. Health Concerns Section Related Observation LastModified by Organization Detai ls LastModified Time None Recorded Concern Status LastModified by Organization Details LastModified Time None Recorded Payers Encounter Date Sequence Insurance Name Policy Number Policy Murry Covered Member ID Umrry Member ID Guarantor Name 03/20/2025 1 [facility] (MEDICARE REPLACEMENT/A DVANTAGE - PPO) [id number] Kali Castro [id number] Kali Castro Notes Date Note Type Note Provider Name and Address Organization Details Recorded Time 03/20/2025 text/html The patient is a 74-year-old male presenting with ER follow-up for acute pancreatitis and insomnia management. This was his first episode of acute pancreatitis, which followed a prolonged period of diarrhea, and his administered pzel-zdn-oekigmu antidiarrheal medications. There was a previous incident two weeks ago where the patient experienced severe anxiety, initially suspected to be a cardiac event, which resulted in an ER visit. There has been confusion over a past alprazolam prescription meant for his , not the patient. The patient also battles insomnia and is nocturnally wandering, for which his inquires about a potential lorazepam prescription. Past increases in his quetiapine dosage might correlate with current issues. He is prone to falls, but no injuries have been noted. Dori Su MD [address] [place] [address], [phone], [facility], [place] 03/21/2025 09:57:24
--- OUTSIDE RECORDS SUMMARY | 2025-03-29 09:16 | XMS_ITS | Continuity of Care Document ---
Author Organization [facility] Lizandro Logan, [facility] ([facility]) Address [address] [place] [address] Care Team Providers Care Dope Firer Name Role Phone DORI SU Primary Care Provider Unavailabl e Assessment No assessment recorded. Plan of Treatment Reminders Order Date Submit Date Provider Last Modified By Organization Details Last Modified Time Details Appointments None record ed. Lab None record ed. Referral None record ed. Procedures None record ed. Surgeries None record ed. Imaging XR, abdome n, 1 view 025 01/05/20 [facility] [address], [address] [place], [address], 18:57:36 Medication Orders None record ed. Patient TargetsNo targets recorded. Patient InstructionsNo instructions recorded. Reason for Referral None Reported. Results Created Date Observation Date Name Description Value Unit Range Abnormal Flag Note LastModifiedBy Organization Detail LastModifiedTime 01/07/20 25 01/04/2025 XR, abdom en, 1 view No observ ation record ed. [facility] [address] [place], [address], 01/06/2025 12:28:13 Result Notes None recorded. Problems Name Problem SNOMED Code Status Onset Date Resolution Date Notes Provider Name and Address Organization Details Recorded Time Anxiety 41651538 Active 2021 Dori Su MD [address] [place], [address], [facility] 5 16:08:47 Parkinson 's disease 77907156 Active 2022 Alina steel, [facility] 5 15:46:43 Type 2 diabetes mellitus 85694864 Active 2022 Alina Davey null, [facility] 5 15:47:05 Polyneuro yaritza 94097073 Active 2022 NOVA LORI null, [facility] 3 08:54:23 Anxiety disorder 116761873 Active 2022 Alina steel, [facility] 5 15:45:40 Hyperchol esterolem ia 13148853 Active 2022 Alina steel, [facility] 5 15:46:49 Gastroeso phageal reflux disease 325691546 Active 2022 Alina steel, [facility] 5 15:46:09 Benign prostatic hyperplas ia with outflow obstructi on 742414982 [facility] 15:45:49 Dermatoph ytosis 72848669 Active 2022 Dori Su MD [address] [place] [address], [phone] , [facility] 3 14:22:44 Skin lesion 04049198 Completed 202211/20/2024 Alina steel, [facility] 5 15:47:00 Diabetic periphera l neuropath y 095347532 Active 2023 Alina steel [facility] 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 Procedures Surgical History Date Name Laterality Status Provider Name and Address Organization Details Recorded Time 08/14/19 [address] [facility], Lizandro 11/19/2022 09:09:55 06/11/19 21 Flexible Sigmoidoscopy completed [facility], Lizandro 11/19/2022 09:09:[address] [facility] 11/19/2022 09:08:01 Imaging Results None recorded. Procedure [...] Available doxycycli ne hyclate 100 mg capsule 10/18 /2023 completed Not Available Not Available Not Available ropinirol e 1 mg tablet three times daily 12/20 completed 0; Recorded 12/31/19 22 2:14PM by Xu Almonte/Bishop garcia; Not Available Not Available Not Available [...] completed 0; Recorded 12/31/19 2:19PM by Nova Bundy, Office Visit; Not Available [...] and Address Organization Details Last Updated DateTime 172.72 cm 23.9 kg/m2 53862 g 96 % 86 /min 16 /min 98.2 [degF] 130/70 mm[Hg] Coby Mack [facility] 15:37:22 Social History Question Answer Notes LastModified by Organizat ion Details LastModified Time Tobacco Smoking Status Former Smoker NOVA steel [facility] 11/19/2022 09:06:54 What Is Your Level Of Caffeine Consumption? Occasional Information not available 11/19/2022 What Was The Date Of Your Most Recent Tobacco Screening? 01/04/2025 [email or web address] Information not available 01/04/2025 What Is Your Current Pack Years? [email or web address] ars [email or web address] Information not available 11/20/2024 What Is Your [...] 30 mcg/0.3 mL 3 completed Juana steel [facility] 12/28/2023 07:51:51 COVID-19, mRNA, LNP-S, PF, 30 mcg/0.3 mL dose 1 completed NOVA steel [facility] 11/18/2022 15:31:10 COVID-19, mRNA, LNP-S, PF, 30 mcg/0.3 mL dose 1 completed NOVA steel [facility] 11/18/2022 15:31:10 COVID-19, mRNA, LNP-S, PF, 30 mcg/0.3 mL dose 1 completed NOVASA LORI steel, [facility] 11/18/2022 15:31:10 COVID-19, mRNA, LNP-S, PF, 30 mcg/0.3 mL dose, raine-sucrose 2 completed NOVA ADAMSG milvia, [facility] 11/18/2022 15:31:10 pneumococcal polysaccharide PPV23 2 completed NOVA LORI milvia [facility] 11/18/2022 15:31:10 Tdap 1 completed NOVA ADAMSG milvia [facility] 11/18/2022 15:31:10 Pneumococcal conjugate PCV 13 5 completed NOVA steel, [facility] 11/18/2022 15:31:10 COVID-19, mRNA, LNP-S, PF, 50 mcg/0.5 mL 4 completed Not Available [facility] 03/20/2025 15:22:49 COVID-19, mRNA, LNP-S, PF, 10 mcg/0.2 mL 5 completed Not Available [facility] 03/20/2025 15:22:48 Past Encounters Encounter ID Performer Location Encounter Start Date Encounter Closed Date Diagnosis/Indication Diagnosis SNOMED-CT Code Diagnosis ICD10 Code Diagnosis IMO Codes Diagnosis Note [id number] PER YAO [facility] ([facility]) [address] [place] [address] 12/11/2024 13:34:44 12/11/2024 14:22:09 [id number] Dori Su MD [facility] ([facility]) [address] [place] [address] 12/20/2024 13:57:10 12/20/2024 15:02:51 Parkinson's disease 74933381 G20.B1 Patient wants to be referred to neurologis t closer to home. Dementia d ue to Parkinson's disease 8364372905 75887 G20.A1 F02.B11 [id number] Patient has done very well with the addition of quetiapine at bedtime. Discussed resources to help with the patient's as a caregiver. [id number] PER YAO [facility] ([facility]) [address] [place] [address] 01/04/2025 15:25:36 01/04/2025 18:57:36 Slow transit constipation 76427879 K59.01 8838 Xray with large amount of stool present. Advised to start miralax daily. Patient's states that she has this at time. RTC with any new or worsening symptoms. Health Concerns Section Related Observation LastModified by Organization Detai ls LastModified Time None Recorded Concern Status LastModified by Organization Details LastModified Time None Recorded Payers Encounter Date Sequence Insurance Name Policy Number Policy Murry Covered Member ID Murry Member ID Guarantor Name 01/04/2025 1 [facility] (MEDICARE REPLACEMENT/A DVANTAGE - PPO) [id number] Kali Castro [id number] Kali Castro Notes Date Note Type Note Provider Name and Address Organization Details Recorded Time text/html ConstipationReported by PatientROS as noted in the HPI walk in patientpatient is here today for constipation that started last week, gave him a enema and he had a little bit of stool, also said that patients stomach looks distended. PER YAO [address] [place], [address], [facility] 01/04/2025 18:56:07
--- OUTSIDE RECORDS SUMMARY | 2025-03-29 09:16 | XMS_ITS | Patient Health Record ---
Author Organization [employer] [facility], [facility] Address [address] [facility] [place] [address] Care Team Providers Care Budget Record Clerk Name Role Phone Saúl Su MD Primary Care Provider EMMIE Laguerre Unavailable [phone] Allergies Allergen (clinical drug ingredient) Drug/Non Drug Allergy documented on EMR Reaction Allergy Type Onset Date Status Latex Latex Unknown Allergy Active Results Component Value Reference Range Notes Urinalysis, Routine Reviewed date:09/11/2024 04:39:55 PM Interpretation: Performing Lab: Notes/Report: Urine-Color light yellow Appearance clear Glucose - Bilirubin - Ketones - Specific [place] 1.005 Occult Blood - pH 6.0 Urine [...] W/U Status Risk Notes Problem Neurogenic bladder (844189059) Neurogenic bladder (N31.9) Active confirmed Problem Benign prostatic hyperplasia (149440347) BPH (benign prostatic hyperplasia) (N40.0) Active confirmed Vital Signs Heart Rate 72 /min 09/11/2024 Height-cm 172.72 cm 09/11/2024 Blood pressure diastolic 71 mm Hg 09/11/2024 Weight-kg 73.94 kg 09/11/2024 Height 68 in 09/11/2024 Blood pressure systolic 110 mm Hg 09/11/2024 Weight 163 lbs 09/11/2024 BMI 24.78 kg/m2 09/11/2024 Procedures Procedure Date Ordered Date Performed Result Body Sit e Bladder Scan 09/11/2024 09/11/2024 390 mL Encounters Encounter Location Date Provider Diagnosis [facility] [address] [address] 09/11/2024 EMMIE CHILEL Neurogenic bladder N31.9 ; Urinary retention R33.9 ; BPH (benign prostatic hyperplasia) N40.0 and Prostate cancer screening Z12.5 [facility] [address] [place] [address] 07/19/2024 EMMIE CHILEL [facility] [address] [address] 03/12/2025 EMMIE CHILEL Assessments Encounter Date Diagnosis [...] Test Name Order Date Renal Ultrasound GRACE [address] 07/19/2024 Future Test Test Name Order Date Basic Metabolic Panel 01/12/2025 PSA-Screening 01/12/2025 Insurance Providers Payer Name Payer Address Payer Phone Subscriber Number Group Number Insured Name Patient Relationship to Insured Coverage Start Date Coverage End Date [facility] Medicare Advantage PPO [address] [address] [place], [place] [id number] Kali Damon Self - patient is the insured Medical (General) History Medical History History ICD Code back trouble hemorriods bladder infection hernia pre- diabetic Parkinson's Surgical History Surgery Date(Month/Year) cholecystectomy Hospitalization History Reason Date(Month/Year) see prior sx hx
--- OUTSIDE RECORDS SUMMARY | 2025-03-29 09:16 | XMS_ITS | Data Portability ---
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 Name Role Phone DORI SU Primary Care [...] Lab lipase, serum or plasma 2024 025 [facility]dor[facility]io [facility], [address] [employer] [address], [facility] 3 [place], [address], 03:53:30 PSA, serum or plasma - ORDERED BY [facility]/ WILL FAX YF 2024 025 Zdorovio [facility], [address] [facility], [place], [address], 07:22:22 BMP, serum or plasma - ORDERED BY [facility]/ WILL FAX YF 2024 025 [place] [facility], [address] [facility], [place], [address], 17:11:[address] referral 2024 025 [email or web address] 2 [facility], [address] [place], [address], 10:25:02 Procedures None recorded. Surgeries None recorded. Imaging XR, abdomen, 1 view 2024 025 [email or web address] [facility], [address] [place], [address], 18:57:36 Medication Orders clonazepa m 0.5 mg tablet 2024 025 VENESSA [id number], [address], [place], [place], [id number], 16:10:16 Patient TargetsNo targets recorded. Patient Instructions Encounter Date Encounter Id Patient Instructions Last Modified By Organization Details Last Modified Time 03/20/2025 [id number] - Follow a low-f at diet and [...] Not available 03/20/2025 16:14:30 Reason for Referral Neurologist Referral for Par kinson's disease Referring Physician: Dori Su, Family Medicine, Encounter Date: 12/20/2024 Results Created Date Observation Date Name Description Value Unit Range Abnormal Flag Note LastModifiedBy Organization Detail LastModifiedTime 11/21/1911/20/2024 CBC WBC 8.6 x10 4.5-10 .5 Not Available [facility] [address], [place], [address], 11/20/2024 16:20:33 11/21/19 25 11/20/2024 CBC RBC 5.40 x10 4.30-5 .90 Not Available [facility] [address], [place], [address], 11/20/2024 16:20:33 11/21/19 25 11/20/2024 CBC HGB 16.5 g/dL 13.5-1 8.0 Not Available [facility] [address] [facility] 1, [place], [address], 11/20/2024 16:20:33 11/21/19 25 11/20/2024 CBC HCT 51.4 % 35.0-6 0.0 Not Available [facility] [address] [facility] 1, [place], [address], 11/20/2024 16:20:33 11/21/19 25 11/20/2024 CBC MCV 95.1 fL 80.0-9 9.9 Not Available [facility] [address], [place], [address], 11/20/2024 16:20:33 11/21/19 25 11/20/2024 CBC MCH 30.6 pg 27.0-3 2.0 Not Available [facility] [address], [place], [address], 11/20/2024 16:20:33 11/21/19 25 11/20/2024 CBC MCHC 32.1 g/dL 32.0-3 6.0 Not Available [facility] [address] [facility] 1, [place], [address], 11/20/2024 16:20:33 11/21/19 25 11/20/2024 CBC RDW 14.6 % 11.5-1 4.5 high Not Available [facility] [address] [facility] 1, [place], [address], 11/20/2024 16:20:33 11/21/19 25 11/20/2024 CBC plt 197.9 x10 150.0- 451.0 Not Available [facility] [address] [facility] 1, [place], [address], 11/20/2024 16:20:33 11/21/19 25 11/20/2024 CBC lymphocytes % 31.9 % 20.0-5 0.0 Not Available [facility] [address] [facility] 1, [place], [address], 11/20/2024 16:20:33 11/21/19 25 11/20/2024 CBC granulcytes % 59.2 % 30.0-7 0.0 Not Available [facility] [address] [facility] 1, [place], [address], 11/20/2024 16:20:33 11/21/19 25 11/20/2024 CBC monocytes % 6.7 % 2.0-16 .0 Not Available [facility] [address] [facility] 1, [place], [address], 11/20/2024 16:20:33 11/21/19 25 11/20/2024 CBC granulcytes# 5.1 x10 Not Marina ilable [facility] [address] [facility] 1, [place], [address], 11/20/2024 16:20:33 11/21/19 25 11/20/2024 CBC lymphocytes # 2.7 x10 Not Available [facility] [address] [facility], [place], [address], 11/20/2024 16:20:33 11/21/19 25 11/20/2024 CBC monocytes # 0.6 x10 Not [facility] [address] [facility] 1, [place], [address], 11/20/2024 16:20:33 11/21/19 25 11/20/2024 HBA1C hemaglobin A1C 5.6 4.2-6. 5 Not Available [facility] [address] [facility] 1, [place], [address], 11/20/2024 16:26:06 11/21/19 25 11/20/2024 CMP (MALE ) glucose 97.0 mg/dL 60.0-9 9.0 Not Available [facility] [address] [facility] 1, [place], [address], 11/20/2024 16:59:20 11/21/19 25 11/20/2024 CMP (MALE ) BUN (blood urea nitrogen) 15.0 mg/dL 10.0-2 6.0 Not Available [facility] [address] [facility] 1, [place], [address], 11/20/2024 16:59:20 11/21/19 25 11/20/2024 CMP (MALE ) creatinine (serum) 0.6 mg/dL 0.4-1. 5 Not Available [facility] [address] [facility] 1, [place], [address], 11/20/2024 16:59:20 11/21/19 25 11/20/2024 CMP (MALE ) BUN/creatini ne ratio 25.00 ratio Not Available [facility] [address] [facility], [place], [address], 11/20/2024 16:59:20 11/21/19 25 11/20/2024 CMP (MALE ) eGFR calculated 139.6 Not Available [facility] [address] [facility] 1, [place], [address], 11/20/2024 16:59:20 11/21/19 25 11/20/2024 CMP (MALE ) total protein 7.9 g/dL 6.0-8. 5 Not Available [facility] [address] [facility], [place], [address], 11/20/2024 16:59:20 11/21/19 25 11/20/2024 CMP (MALE ) total bilirubin 0.8 mg/dL 0.2-1. 3 Not Available [facility] [address] [facility] 1, [place], [address], 11/20/2024 16:59:20 11/21/19 25 11/20/2024 CMP (MALE ) albumin 4.8 g/dL 3.5-5. 5 Not Available [facility] [address] [facility] 1, [place], [address], 11/20/2024 16:59:20 11/21/19 25 11/20/2024 CMP (MALE ) globulin 3.1 calc Not Available [facility] [address] [facility] 1, [place], [address], 11/20/2024 16:59:20 11/21/19 25 11/20/2024 CMP (MALE ) AST (SGOT) 13.0 U/L 0.0-46 .0 Not Available [facility] [address] [facility], [place], [address], 11/20/2024 16:59:20 11/21/19 25 11/20/2024 CMP (MALE ) altv (SGPT) 4.0 U/L 13.0-6 9.0 abnormal Not Available [facility] [address] [facility] 1, [place], [address], 11/20/2024 16:59:20 11/21/19 25 11/20/2024 CMP (MALE ) A/G ratio 1.5 ratio Not Available [facility] [address] [facility] 1, [place], [address], 11/20/2024 16:59:20 11/21/19 25 11/20/2024 CMP (MALE ) ALP phos 106.0 U/L 30.0-1 40.0 normal Not Available [facility] [address] [facility], [place], [address], 11/20/2024 16:59:20 11/21/19 25 11/20/2024 CMP (MALE ) calcium 9.6 mg/dL 8.4-10 .5 Not Available [facility] [address] [facility] 1, [place], [address], 11/20/2024 16:59:20 11/21/19 25 11/20/2024 CMP (MALE ) sodium 140.0 mmol/ L 136.0- 145.0 Not Available [place] [facility] [address] [facility] 1, [place], [address], 11/20/2024 16:59:20 11/21/19 25 11/20/2024 CMP (MALE ) potassium 4.5 mmol/ L 3.5-5. 1 Not Available [facility] [address] [facility], [place], [address], 11/20/2024 16:59:20 11/21/19 25 11/20/2024 CMP (MALE ) chloride 103.0 mmol/ L 98.0-1 10.0 normal Not Available [facility] [address] [facility], [place], [address], 11/20/2024 16:59:20 11/21/19 25 11/20/2024 CMP (MALE ) C02 28.0 mmol/ L 22.0-3 1.0 Not Available [facility] [address] [facility], [place], [address], 11/20/2024 16:59:20 11/21/19 25 11/20/2024 CMP (MALE ) anion gap 9.0 calc Not Available [facility] [address] [facility] 1, [place], [address], 11/20/2024 16:59:20 11/21/19 25 11/20/2024 CMP (MALE ) osmolality 289.9 calc Not Available [facility] [address] [facility] 1, [place], [address], 11/20/2024 16:59:20 11/21/19 25 11/20/2024 LIPID PROFI LE (MALE ) cholesterol 165.0 mg/dL 0.0-20 0.0 Not Available [facility] [address] [facility] 1, [place], [address], 11/20/2024 16:59:23 11/21/19 25 11/20/2024 LIPID PROFI LE (MALE ) trig 112.0 mg/dL 0.0-15 0.0 Not Available [facility] [address] [facility] 1, [place], [address], 11/20/2024 16:59:23 11/21/19 25 11/20/2024 LIPID PROFI LE (MALE ) HDL - direct 44.0 mg/dL >40.0 Not Available [facility] [address] [facility] 1, [place], [address], 11/20/2024 16:59:23 11/21/19 25 11/20/2024 LIPID PROFI LE (MALE ) VLDL - direct 22.4 mg/dL Not Available [facility] [address] [facility] [address], [place], [address], 11/20/2024 16:59:23 11/21/19 25 11/20/2024 LIPID PROFI KAREN (MALE ) LDL - direct 98.6 mg/dL 0.0-13 0.0 Not Available [facility] [address] [facility] [address], [place], [address], 11/20/2024 16:59:23 11/22/19 25 11/22/2024 ALBUM IN, RANDO M URINE W/CRE ATINI NE creatinine, random urine 92 mg/dL 20-320 normal Not Available [address] [address] [place], [address], 11/22/2024 07:35:33 11/22/19 25 11/22/2024 ALBUM IN, RANDO M URINE W/CRE ATINI NE albumin, urine 0.7 mg/dL see note: normal Refer ence Range : Refer ence Range Not estab lishe d Not Available [address] [address] [place], [address], 11/22/2024 07:35:33 11/22/19 25 11/22/2024 ALBUM IN, [...] a diagn ostic categ ory. Not Available [address] [place] [address] [place], [address], 11/22/2024 07:35:33 03/07/20 25 03/07/2025 BMP (MALE ) glucose 136.0 mg/dL 60.0-9 9.0 high Not Available [facility] [address] [facility] 1, [place], [address], 03/07/2025 17:11:32 03/07/20 25 03/07/2025 BMP (MALE ) BUN (blood urea nitrogen) 18.0 mg/dL 10.0-2 6.0 Not Available [place] [facility] [address] [facility] 1, [place], [address], 03/07/2025 17:11:32 03/07/20 25 03/07/2025 BMP (MALE ) creatinine (serum) 0.7 mg/dL 0.4-1. 5 Not Available [facility] [address] [facility] 1, [place], [address], 03/07/2025 17:11:32 03/07/20 25 03/07/2025 BMP (MALE ) BUN/creatini ne ratio 25.71 ratio Not Available [facility] [address] [facility] 1, [place], [address], 03/07/2025 17:11:32 03/07/20 25 03/07/2025 BMP (MALE ) calcium 9.4 mg/dL 8.4-10 .5 Not Available [facility] [address] [facility] 1, [place], [address], 03/07/2025 17:11:32 03/07/20 25 03/07/2025 BMP (MALE ) sodium 139.0 mmol/ L 136.0- 145.0 Not Available [place] [facility] [address] [facility] 1, [place], [address], 03/07/2025 17:11:32 03/07/20 25 03/07/2025 BMP (MALE ) potassium 4.1 mmol/ L 3.5-5. 1 Not Available [facility] [address] [facility] 1, [place], [address], 03/07/2025 17:11:32 03/07/20 25 03/07/2025 BMP (MALE ) chloride 102.0 mmol/ L 98.0-1 10.0 normal Not Available [facility] [address] [facility] 1, [place], [address], 03/07/2025 17:11:32 03/07/20 25 03/07/2025 BMP (MALE ) C02 28.0 mmol/ L 22.0-3 1.0 Not Available [facility] [address] [facility] 1, [place], [address], 03/07/2025 17:11:32 03/07/2003/08/2025 PSA, TOTAL PSA, total 1.96 NG/mL < [...] This test was perfo rmed using the [employer] MOD chemi lumin escen t metho d. Value s obtai radha from diffe rent assay metho ds canno t be used inter christopher eably . PSA level s, regar dless of value , shoul d not be inter prete d as absol [place] evide nce of the prese nce or absen ce of disea se. Not Available [facility] [address], [place], [address], 03/08/2025 07:22:22 03/08/2003/08/2025 URINA LYSIS WITH MICRO color YELLOW Not Available [facility] [address], [place], [address], 03/08/2025 15:03:27 03/08/20 25 03/08/2025 URINA LYSIS WITH MICRO clarity CLEAR Not Available [facility] [address], [place], [address], 03/08/2025 15:03:27 03/08/20 25 03/08/2025 URINA LYSIS WITH MICRO glu NEGATI VE Not Available [facility] [address], [place], [address], 03/08/2025 15:03:27 03/08/20 25 03/08/2025 URINA LYSIS WITH MICRO bili NEGATI VE Not Available [facility] [address], [place], [address], 03/08/2025 15:03:27 03/08/20 25 03/08/2025 URINA LYSIS WITH MICRO ket NEGATI VE Not Available [facility] [address], [place], [address], 03/08/2025 15:03:27 03/08/20 25 03/08/2025 URINA LYSIS WITH MICRO S.g >1.030 1.005- 1.025 high > Not Available [facility] [address], [place], [address], 03/08/2025 15:03:27 03/08/20 25 03/08/2025 URINA LYSIS WITH MICRO pH 6.0 Not Available [facility] [address], [place], [address], 03/08/2025 15:03:27 03/08/20 25 03/08/2025 URINA LYSIS WITH MICRO pro TRACE abnormal Not Available [facility] [address], [place], [address], 03/08/2025 15:03:27 03/08/20 25 03/08/2025 URINA LYSIS WITH MICRO uro 0.2 E.U./D L Not Available [facility] [address] [facility] [address], [place], [address], 03/08/2025 15:03:27 03/08/20 25 03/08/2025 URINA LYSIS WITH MICRO nit POSITI VE abnormal Not Available [facility] [address], [place], [address], 03/08/2025 15:03:27 03/08/20 25 03/08/2025 URINA LYSIS WITH MICRO blo NEGATI VE Not Available [facility] [address] [facility] 1, [place], [address], 03/08/2025 15:03:27 03/08/20 25 03/08/2025 URINA LYSIS WITH MICRO lazara 1+ abnormal Not Available [facility] [address] [facility], [place], [address], 03/08/2025 15:03:27 03/08/20 25 03/08/2025 URINA LYSIS WITH MICRO WBC 60-80 abnormal Not Available [facility] [address] [facility] 1, [place], [address], 03/08/2025 15:03:27 03/08/20 25 03/08/2025 URINA LYSIS WITH MICRO RBC 1-2 Not Available [facility] [address] [facility] 1, [place], [address], 03/08/2025 15:03:27 03/08/20 25 03/08/2025 URINA LYSIS WITH MICRO epi cells 2-3 Not Available [facility] [address] [facility], [place], [address], 03/08/2025 15:03:27 03/08/20 25 03/08/2025 URINA LYSIS WITH MICRO bacteria 1+ MIXED SHAQUILLE abnormal Not Available [facility] [address] [facility] 1, [place], [address], 03/08/2025 15:03:27 03/08/20 25 03/08/2025 URINA LYSIS WITH MICRO other NG Not Available [facility] [address] [facility] [address], [place], [address], 03/08/2025 15:03:27 03/08/20 25 03/10/2025 CULTU RE, URINE , ROUTI NE culture, urine, routine SEE NOTE CULTU RE, URINE , ROUTI NE Micro Numbe r: [id number] Test Statu s: Final Speci men [...] Cultu re Trans port Tube. Not Available [facility] [address] [place], [address], 03/10/2025 04:35:53 03/20/20 25 03/21/2025 LIPAS E lipase 27 U/L 7-60 normal Not Available [facility] [address] [place], [address], 03/21/2025 03:53:30 01/07/20 25 01/04/2025 XR, abdom en, 1 view No observ ation record ed. [facility] [address] [facility], [place], [address], 01/06/2025 12:28:13 Result Notes None recorded. Problems Name Problem SNOMED Code Status Onset Date Resolution Date Notes Provider Name and Address Organization Details Recorded Time Anxiety 78938290 Active 2021 Dori Su MD [address] [place] [address], [phone], [facility] 5 16:08:47 Parkinson 's disease 62401981 Active 2022 Alina steel [facility] 5 15:46:43 Type 2 diabetes mellitus 70025315 Active 2022 Alina steel [facility] 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 3 08:54:23 Anxiety disorder 327772126 Active 2022 Alina steel [facility] 5 15:45:40 Hyperchol esterolem ia 47358778 Active 2022 Alina steel [facility] 5 15:46:49 Gastroeso phageal reflux disease 921526456 Active 2022 Alina steel [facility] 5 15:46:09 Benign prostatic hyperplas ia with outflow obstructi on 300266689 Active 2022 Alina steel [facility] 5 15:45:49 Dermatoph ytosis 45379635 Active 2022 Dori Su MD [address] [place], [address], [facility] 3 14:22:44 Skin lesion 27529070 Completed 202211/20/2024 Alina setel, [facility] 5 15:47:00 Diabetic periphera l neuropath y 050040625 Active 2023 Alina steel [facility] 5 15:46:04 Abnormal gait 14667734 Active 2023 Alina steel [facility] 5 15:45:33 Memory impairmen t 684564432 Active 2024 Dori Su MD [address] [place] [address], [address] [place] [address] 5, [facility] 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 5 21:24:57 Acute pancreati tis 843459670 Active 2024 Dori Su MD [address] [place] [address], [address], [facility] 5 16:04:43 Problem Notes None recorded. Procedures Surgical History Date Name Laterality Status Provider Name and Address Organization Details Recorded Time 08/14/19 23 [facility] 11/19/2022 09:09:55 06/11/19 21 Flexible Sigmoidoscopy completed [facility] 11/19/2022 09:09:21 Cholecystectomy completed [facility] 11/19/2022 09:08:01 Imaging Results None recorded. Procedure [...] 0; Recorded 12/31/19 22 2:19PM by Nova Bundy, Office Visit; Not [...] (BMI) Body weight Oxygen saturation Heart rate Systolic And Diastolic Provider Name and Address Organization Details Last Updated DateTime 5 172.72 cm 24.3 kg/m2 75225.7 8 g 96 % 71 /min 107/62 mm[Hg] Tanika Tidwell [facility], LArt[facility]rt[facility]rt 5 14:21:37 Date Recorded Body height Body mass index (BMI) Body weight Oxygen saturation Heart rate Respiratory rate Body temperature Systolic And Diastolic Provider Name and Address Organization Details Last Updated DateTime 5 172.72 cm 23.9 kg/m2 58360 g 96 % 86 /min 16 /min 98.2 [degF] 130/70 mm[Hg] Coby Mack [facility] 5 15:37:22 Date Recorded Body height Body mass index (BMI) Body weight Oxygen saturation Heart rate Respiratory rate Body temperature Systolic And Diastolic Provider Name and Address Organization Details Last Updated DateTime 5 172.72 cm 25.7 kg/m2 35250.1 1 g 97 % 75 /min 18 /min 96.8 [degF] 122/74 mm[Hg] Alina Davey [facility] 5 15:31:10 Social History Question Answer Notes LastModified by [employer] Details LastModified Time Tobacco Smoking Status Former [facility]oker [facility] 11/19/2022 09:06:54 What Is Your Level Of Caffeine Consumption? Occasional Information not available 11/19/2022 What Was The Date Of Your Most Recent Tobacco Screening? 01/04/2025 [email or web address] Information not available 01/04/2025 What Is Your Current Pack Years? [email or web address] [email or web address] Information not available 11/20/2024 What Is Your Relationship Status? Information not available 11/19/2022 Do You Use Your Seat Belt Or Car Seat Routinely? Yes Information not available 11/19/2022 Have You Recently Traveled Abroad? No Information not available 11/19/2022 Sex: Unknown Functional Status Question Answer Note LastModified by [employer] First ion Details LastModified Time Do you use [...] 30 mcg/0.3 mL 3 completed Juana steel [facility] 12/28/2023 07:51:51 COVID-19, mRNA, LNP-S, PF, 30 mcg/0.3 mL dose 1 completed NOVA steel [facility] 11/18/2022 15:31:10 COVID-19, mRNA, LNP-S, PF, 30 mcg/0.3 mL dose 1 completed NOVA steel [facility] 11/18/2022 15:31:10 COVID-19, mRNA, LNP-S, PF, 30 mcg/0.3 mL dose 1 completed NOVA steel [facility] 11/18/2022 15:31:10 COVID-19, mRNA, LNP-S, PF, 30 mcg/0.3 mL dose, raine-sucrose 2 completed NOVA steel [facility] 11/18/2022 15:31:10 pneumococcal polysaccharide PPV23 2 completed NOVA steel [facility], L[facility]LArt[facility]rt 11/18/2022 15:31:10 Tdap 1 completed NOVA steel [facility] 11/18/2022 15:31:10 Pneumococcal conjugate PCV 13 5 completed NOVA steel [facility] 11/18/2022 15:31:10 COVID-19, mRNA, LNP-S, PF, 50 mcg/0.5 mL 4 completed Not Available [facility] 03/20/2025 15:22:49 COVID-19, mRNA, LNP-S, PF, 10 mcg/0.2 mL 5 completed Not Available [facility] 03/20/2025 15:22:48 Past Encounters Encounter ID Performer Location Encounter Start Date Encounter Closed Date Diagnosis/Indication Diagnosis SNOMED-CT Code Diagnosis ICD10 Code Diagnosis IMO Codes Diagnosis Note [id number] PER FIERRO [facility] ([facility]) [address] [place] [phone] 09/28/2022 12:33:49 10/08/2022 13:01:11 Swelling of scrotum 594010512 N50.89 Pain of left testicle 16 45990503 8138650 N50.812 [id number] Dori Su MD [facility] ([facility]) [address] [place] [phone] 11/19/2022 13:50:02 11/20/2022 14:16:36 Adult health examination 441643772 Z00.00 We will obtain lab work today. We will include a PSA given his history of prostate issues and at the recommenda tion of his urologist. Screening for cardiovascular system disease 898684575 Z13.6 Benign pro static hyperplasia with outflow obstruction 448852386 N40.1 Patient is cathing 3-4 times daily Gastroesop hageal reflux disease 157653594 K21.9 Dermatophytosis 17812094 B35.9 Lesion is most consistent with fungal infection. We will start clotrimazo le. Prediabetes 077286508 R7 3.03 We will recheck A1c today. Anxiety disorder 9671504 06 F41.9 Stable on current medication s Parkinson's disease 6504 9000 G20 Patient follows up with neurology regularly. Continue carbidopa levodopa [id number] Dori Su MD [facility] ([facility] [facility]) [address] [place] [address] [phone] 5 02/24/2023 14:42:45 02/24/2023 15:39:05 Type 2 diabetes mellitus [id number] E11.9 1C is good at 6%. No other interventi on needed at this time. Skin lesion 36096832 L98 .9 Send referral to dermatolog y to help with management . Parkinson's disease 4904 9000 G20.B1 Continue with neurology follow-up. Dermatophytosis [id number] B35.9 Lesion is most consistent with fungal infection. We will start clotrimazo le. [id number] Dori Su MD [facility] ([facility]) [address] [place] [address] [phone] 02/24/2023 14:43:43 02/24/2023 16:52:24 Type 2 diabetes mellitus 02390676 E11.9 [id number] Dori Su MD [facility] ([facility]) [address] [place] [address] [phone] 12/21/2023 15:39:30 12/21/2023 16:39:17 Type 2 diabetes mellitus 30583949 E11.9 Doing well on current medication s. Obtain lab work today. Anxiety 78107645 F41.9 Discussed options for treatment and the patient would like to proceed with a benzo which I think is reasonable given his likely infrequent use of this medication . Benign pro static hyperplasia with outflow obstruction 115704707 N40.1 Patient is cathing 3-4 times daily Parkinson's disease 4904 9000 G20.B1 Continue with neurology follow-up. Hyperlipid emia screening [id number] Z13.220 Benign pro static hyperplasia 200631188 N40.0 Diabetic p eripheral neuropathy 528758898 E11.40 Abnormal gait 11461605 R 26.2 2/2 parkinson' s Impaired mobility 346021 05 Z74.09 Need for p ersonal care assistance [id number] Z74.1 [id number] Dori Su MD [facility] ([facility]) [address] [place] [address] [phone] 5 11/20/2024 14:37:27 11/20/2024 16:05:01 Type 2 diabetes mellitus 50531537 E11.9 Will check labs today. Patient has had poor appetite but has been eating well and blood sugars have little concern for them at this time. Parkinson's disease 4904 9000 G20.B1 Continue with neurology follow-up. Hypercholesterolemia 136 81435 E78.00 Cholestero l. Anxiety disorder 8390707 06 F41.9 Stable on current medication s Diabetic p eripheral neuropathy 422427218 E11.40 Continue gabapentin . Memory impairment 928908 006 R41.3 064418 Symptoms are concerning for significan t dementia. Follow-up with neurology next week discuss imaging results and this potential diagnosis. [id number] PER YAO [facility] ([facility]) [address] [place] [address] [phone] 12/11/2024 13:34:44 12/11/2024 14:22:09 [id number] Dori Su MD [facility] ([facility]) [address] [place] [address] [phone] 12/20/2024 13:57:10 12/20/2024 15:02:51 Parkinson's disease 86489717 G20.B1 Patient wants to be referred to neurologis t closer to home. Dementia d ue to Parkinson's disease [id number] 32346 G20.A1 F02.B11 [id number] Patient has done very well with the addition of quetiapine at bedtime. Discussed resources to help with the patient's as a caregiver. [id number] PER YAO [facility] ([facility]) [address] [place] [address] [phone] 01/04/2025 15:25:36 01/04/2025 18:57:36 Slow transit constipation 25947106 K59.01 8838 Xray with large amount of stool present. Advised to start miralax daily. Patient's states that she has this at time. RTC with any new or worsening symptoms. [id number] Dori Su MD [facility] ([facility]) [address] [place] [address] [phone] 03/07/2025 15:33:57 03/08/2025 10:11:39 Neurogenic urinary bladder 797231554 N31.9 716093 Screening for malignant neoplasm of prostate 054885995 Z12.5 [id number] Dori Su MD [facility] ([facility]) [address] [place] [phone] 5 03/20/2025 15:21:46 03/20/2025 16:34:03 Acute pancreatitis 850523760 K85.90 84221621 - Educated patient regarding dietary management focusing on low-fat intake. Anxiety 53840451 F41.9 56603 - Considerat ion of lorazepam prescripti on for symptom relief, adjust based on existing medication interactio ns. Dementia d ue to Parkinson's disease [id number] 86121 G20.A1 F02.B11 [id number] - Evaluate quetiapine dosage adjustment s for [...] Member ID Murry Member ID Guarantor Name 03/19/2025 1 [facility] (MEDICARE REPLACEMENT/A DVANTAGE - PPO) [id number] Kali Kebedero [id number] Kali Matthew Notes Date Note Type Note Provider Name and Address Organization Details Recorded Time 5 text/html ROS as noted in the [...] help with his medications. Dori Su MD [address] [place] [address], [phone], [facility], L.LArtCArt 12/24/2024 21:27:46 5 text/html ConstipationReported by PatientROS as noted in the HPI walk in patientpatient is here today for constipation that started last week, gave him a enema and he had a little bit of stool, also said that patients stomach looks distended. PER YAO [address] [place], [address], [facility], LPatience. 01/04/2025 18:56:07 text/html The patient is a 74-year-old male presenting with ER follow-up for acute pancreatitis and insomnia management. This was his first episode of acute pancreatitis, which followed a prolonged period of diarrhea, and his administered [id number] antidiarrheal medications. There was a previous incident [...] injuries have been noted. Dori Su MD [address] [place], [address], [facility], LArtLFernando. 03/21/2025 09:57:24
[2025-03-29 09:17] LABS: Alanine Aminotransferase 88 U/L (0-41); Albumin Level 4.2 g/dL (3.5-5.2); Alkaline Phosphatase 198 U/L (40-130); Anion Gap 14.0 (5-19); Aspartate Amino Transferase 78 U/L (0-40); Blood Urea Nitrogen 26 mg/dL (8-23); Calcium 9.1 mg/dL (8.5-10.5); Carbon Dioxide 24 mmol/L (22-29); Chloride 107 mmol/L (98-107); Globulin 2.9 g/dL (1.3-4.6); Glucose 112 mg/dL (65-115); Osmolality Calculated 298 mOsm/kg (285-295); Potassium 4.0 mmol/L (3.5-5.1); Sodium 141 mmol/L (136-145); Total Protein 7.1 g/dL (6.6-8.7)
[2025-03-29 10:09] LABS: Glucose Urine UA Negative (Normal); Nitrate Urine Positive (Negative); Specific Gravity, Urine 1.025 (1.005-1.030)
--- NOTE | 2025-03-29 10:10 | ECG_ITS ---
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 Measurements Intervals [place] Rate: 88 P: 60 WA: 171 QRS: 39 QRSD: 117 T: 54 QT: 356 QTc: 432 Interpretive Statements SINUS RHYTHM MODERATE INTRAVENTRICULAR CONDUCTION DELAY [110+ ms QRS DURATION] No previous ECG available for comparison Electronically Signed On 03-31-2025 14:15:01 METAL MINER by Traci Antony M.D. [email or web address]
--- NOTE | 2025-03-29 10:11 | US_ITS ---
WS: [id number] ULTRASOUND ABDOMEN LIMITED CLINICAL INFORMATION: transaminitis FINDINGS: Limited study due to bowel gas Liver Size: Normal. Craniocaudal length: 15.2 cm. Echogenicity: Coarse Surface nodularity: None. Mass (size and location): None. Bile ducts Intrahepatic ducts: Normal. Common bile duct diameter: 1.0 cm. Gallbladder Cholecystectomy Pancreas not well visualized. Right kidney: Normal size Hydronephrosis: Mild RIGHT hydronephrosis versus prominent RIGHT renal pelvis Size: 10.1 cm x 5.8 cm x 5.8 cm. Abdominal aorta and IVC Visualized portions are normal. Ascites: None. US/US liver [id number] IMPRESSION: Limited study due to bowel gas 1. Coarse hepatic echotexture suspicious for parenchymal disease. Recommend co rrelation liver function tests. 2. Prominent Common bile duct measures 10 mm likely physiologic postcholecyste ctomy. This can be further evaluated with MRCP if laboratory concern 3. Mild RIGHT hydronephrosis versus prominent RIGHT renal pelvis. 4. No other acute findings
[2025-03-29 10:14] LABS: Add Urine Microscopic? YES
[2025-03-29 10:27] LABS: Oval Fat Bodies Urine 1+ /hpf; UA Slide Review UA Slide Review Perf
[2025-03-29 10:43] LABS: Lactic Sepsis W/Reflex 1.5 mmol/L (0.5-2.2); Lipase 46 U/L (13-60)
--- NOTE | 2025-03-29 11:22 | PM.HP ---
Providers/Chief Complaint Primary Care Provider: Saúl Su MD Chief Complaint: fall History of Present Illness Kali Castro Jr is a 74 year old male with a past medical history of dementia, Parkinson's, BPH, chronic diarrhea, GERD, chronic urinary tension with need for self-catheterization who presented to the ER status post falls with increasing weakness over the last few days. Patient fell hit hit his head, fell 2 other times in the last week. CT negative for acute process. Patient's baseline orientation is to person only, but spouse states that he has had increasing confusion over the last week. Urinalysis positive for infection, urine culture and blood culture sent. Patient also had bout of pancreatitis 3 weeks ago, primary care provider reduced dosing of Seroquel thinking that this could have exacerbated this. Patient has had poor oral intake of food and fluids over the last few days, very volume depleted at time of admission. Patient is unable to really participate in review of systems, was able to state that he did not have any chest pain or abdominal pain. Patient does endorse head pain but states that it is all over not localized. Patient's spouse is a sole caregiver and states the patient has had increasingly worsening dementia over the last month. Due to complexity of presentation and infection patient is admitted inpatient, will order IV antibiotic therapy and fluids, and request physical therapy and Occupational Therapy to evaluate this patient as he may need SNF level of care. All questions and concerns addressed with the patient's spouse at time of admission. Admitting WBC 12.68, BUN 26, AST 78, ALT 88, urinalysis with dark yellow cloudy urine 1+ ketones positive nitrates, WBC 21-50, 4+ bacteria pending urine culture and blood culture x 2. Admitting vital signs of blood pressure 126/81 and room air saturation greater than 99%. Afebrile 98.0 ?F. Review of Systems Narrative: States generalized head pain. Const: Denies: fever(s) or chills Card: Denies: chest pain Resp: Denies: dyspnea GI: Denies: abdominal pain : Denies: dysuria, urinary frequency or urinary urgency Musc: Denies: neck pain or back pain Skin/Breast: Denies: rash Medications/Allergies Home Medications ?Medication ?Instructions ?Recorded ?Confirmed ?Last Taken ?Type carbidopa 25 mg-levodopa 100 mg 1 tab PO 5XD 06/03/29/25 03/28/25 History tablet amantadine HCl 100 mg capsule 100 mg PO BID 05/16/20 03/29/25 03/28/25 History melatonin 5 mg capsule 10 mg PO QPM 11/27/20 03/29/25 03/28/25 History quetiapine 25 mg tablet 25 mg PO BEDTIME 11/27/20 03/29/25 03/28/25 History loperamide 2 mg tablet (Imodium 2 mg PO Q6H PRN loose stool #20 08/26/21 03/29/25 Unknown Rx A-D) tabs gabapentin 600 mg tablet 600 mg PO BID 90 days #180 tabs 11/11/21 03/29/25 03/28/25 Rx methenamine hippurate 1 gram tablet See Rx Instructions .Route 08/26/22 03/29/25 03/28/25 Rx .COMPLEX #180 tabs quinn balance brace #1 ea 12/27/23 03/29/25 Unknown Rx clonazepam 0.5 mg tablet 0.5 mg PO BID 03/29/25 03/29/25 03/28/25 History finasteride 5 mg tablet 5 mg PO DAILY 03/29/25 03/29/25 03/28/25 History omeprazole 40 mg capsule,delayed 40 mg PO DAILY 03/29/25 03/29/25 03/28/25 History release quetiapine 50 mg tablet 50 mg PO BEDTIME 03/29/25 03/29/25 03/28/25 History tamsulosin 0.4 mg capsule 0.4 mg PO BID 03/29/25 03/29/25 03/28/25 History trazodone 100 mg tablet 100 mg PO BEDTIME 03/29/25 03/29/25 03/28/25 History Allergies Allergy/AdvReac Type Severity Reaction Status Date / Time latex Allergy ALGY-Hives Verified 03/18/25 23:47 PFSH Acute PFSH: Medical History (Updated 03/29/25 @ 14:08 by Christin Stafford, NIKITA) C. difficile diarrhea Chronic diarrhea Chronic GERD Neuropathy Type 2 diabetes mellitus Hypercholesteremia Urinary retention BPH with obstruction/lower urinary tract symptoms Surgical History Hx of sigmoidoscopy (06/11/20) incomplete due to poor prep Status post colonoscopy (08/13/20) diverticulosis Hx of cholecystectomy Family History Mother Congestive heart failure (CHF) Social History Smoking and tobacco/nicotine status: former use of tobacco/nicotine Alcohol intake: former Substance/Drug Use: never Marital status: Current occupational status: retired Do you think of yourself as: Straight/Heterosexual Vitals/I&O/Wt Last Vital Signs Temp 98.0 F 03/29/25 08:43 Pulse 87 03/29/25 09:54 Resp 16 03/29/25 09:54 BP 166/111 03/29/25 09:54 Pulse Ox 98 03/29/25 09:54 O2 Del Method Room Air 03/29/25 09:54 O2 Flow Rate 2 03/29/25 08:43 Weight last 48 hrs Weight 65.771 kg Physical Exam Narrative: Pleasantly confused 74-year-old male laying in bed pulling at lines and leads, able to be redirected Const: EXAM LIMITATIONS: altered mental status HENMT: COMMON NORMALS: normocephalic and Normal external nose present MOUTH: moist mucous membranes abnormal Details: parched Eye: COMMON NORMALS: Equal, round and reactive pupils present Resp: COMMON NORMALS: normal respiratory effort, No retractions and clear to auscultation bilaterally Cardio: COMMON NORMALS: regular rate, S1 normal heart sound present and S2 normal heart sound present GI: COMMON NORMALS: Normal to inspection, nondistended, normoactive bowel sounds present Extremity: COMMON NORMALS: full ROM OTHER: Muscle atrophy to all extremities Neuro: OTHER: Orientated to person only. Psych: MEMORY/COGNITION: Yes cognition grossly impaired JUDGEMENT: questionable Skin: COMMON NORMALS: no rashes or lesions noted Data 03/29/25 08:45 03/29/25 08:45 Micro: Microbiology 03/29/25 10:48 Blood Culture - Preliminary Blood SPECIMEN COLLECTED 03/29/25 10:23 Blood Culture - Preliminary Blood SPECIMEN COLLECTED A&P Assessment and plan 1. Acute UTI: 2. Confusion: 3. Parkinson disease: 4. Urinary retention: 5. Type 2 diabetes mellitus: 6. Neuropathy: 7. Chronic GERD: 8. Falls: 9. Dehydration: Plan: Complicated UTI, POA Chronic urinary retention BPH - Admitting WBC 12.68, positive urinalysis - cath the patient at home - Guillen catheter placed while in the hospital - Continue IV Rocephin 1 g every 24 hour - Follow urine and blood cultures - Outpatient management with urology - Continue Flomax Volume Depletion Poor oral intake food/fluids - Given 1L NS bolus - Continue gentle IV fluid hydration with NS at 75 mL/h Falls Generalized Weakness - 3 falls in the last week - CT C-spine with no evidence of acute fracture or dislocation - Fall precautions, may need sitter - Greatly appreciate physical therapy and Occupational Therapy evaluation and recommendations Parkinson's Dementia Increasing confusion - CT head: No evidence of intracranial hemorrhage or mass effect, no acute intracranial findings. - Continue carbidopa levodopa, amantadine, seroquel, trazodone DM-II Diabetic Neuropathy - Carb controlled diet - Continue gabapentin - Low-dose SSI, POC GERD - Continue PPI Chronic Diarrhea Recent pancreatitis Elevated LFTs - Pending liver ultrasound - AST 78, ALT 88, ALK phosphate 198 - Continue supportive measures - PRN Loperamide - Probiotics VTE PPX: SCD's GI PPX: PPI Code Status: Full Code PDMP PDMP Reviewed: Not Reviewed Attestations Medical Necessity Statement*: Admission for greater than 2 midnights secondary to complicated UTI, altered mental status, and medical complexity necessitating IV antibiotic therapy, IV fluid hydration, PT/OT evaluation interventions with potential SNF placement. and High Time for a total of 75 minutes, includes reviewing past or interval history, examining/interviewing patient, placing orders, counseling patient/family/other support, updating patient/family/other support, discussing plan of care with staff, documenting encounter and coordinating care Diagnoses Acute UTI N39.0 Confusion R41.0 Parkinson disease G20.A1 Urinary retention R33.9 Type 2 diabetes mellitus E11.9 Neuropathy G62.9 Chronic GERD K21.9 Falls R29.6 Dehydration E86.0
[2025-03-29] MEDS: cefTRIAXone 1,000 mg SDV 1000 MG IVP (12:02)
[2025-03-29] MEDS: lactobacillus 1 Tablet 1 TAB PO (17:12)
[2025-03-29] MEDS: carbidopa-levodopa 25-100mg Tablet 1 EACH PO ×2 (17:12→21:00)
[2025-03-29] MEDS: MELATONIN 3 MG TABLET PO (20:47)
[2025-03-30] VITALS (8 sets, daily range): BP systolic 106–124; BP diastolic 66–74; PULSE 70–89; RESP 16–18; TEMP 36.2–36.7; O2SAT 96–99
[2025-03-30] MEDS: lactobacillus 1 Tablet 1 TAB PO ×2 (04:40→16:10)
[2025-03-30] MEDS: cefTRIAXone 1,000 mg SDV 1000 MG IVP (04:40)
[2025-03-30] MEDS: carbidopa-levodopa 25-100mg Tablet 1 EACH PO ×5 (04:43→21:00)
[2025-03-30 05:16] LABS: Hematocrit 40.0 % (37-53); Hemoglobin 14.00 g/dL (11.27-16.99); Mean Corpuscular HGB Conc 35.0 g/dL (30-55); Mean Corpuscular Hemoglobin 30.9 pg (27-33); Mean Corpuscular Volume 88.3 fl (82-101); Nucleated Red Blood Cells % 0 %; Platelet Count 187 10^3/cmm (157-399); Red Blood Count 4.53 10^6/uL (3.85-5.65); White Blood Count 16.43 10^3/uL (3.29-11.43)
[2025-03-30 05:31] LABS: Alanine Aminotransferase 13 U/L (0-41); Albumin Level 3.8 g/dL (3.5-5.2); Alkaline Phosphatase 154 U/L (40-130); Aspartate Amino Transferase 23 U/L (0-40); Blood Urea Nitrogen 14 mg/dL (8-23); Calcium 8.8 mg/dL (8.5-10.5); Carbon Dioxide 23 mmol/L (22-29); Chloride 107 mmol/L (98-107); Globulin 2.0 g/dL (1.3-4.6); Glucose 88 mg/dL (65-115); Magnesium 2.1 mg/dL (1.7-2.3); Osmolality Calculated 296 mOsm/kg (285-295); Sodium 143 mmol/L (136-145); Total Protein 5.8 g/dL (6.6-8.7)
[2025-03-30 05:35] LABS: Anion Gap 16.7 (5-19); Potassium 3.7 mmol/L (3.5-5.1)
--- NOTE | 2025-03-30 07:31 | P.PN_ITS ---
Subjective 2 Subjective: Patient is a very pleasant 74-year-old male seen and examined at bedside on hospital rounds today. Patient laying in bed orientation x 1, is able to answer some questions appropriately, states he has no chest pain or shortness of breath and that he slept well last night. Patient's vital signs are stable. Review of labs elevated WBC 16.43, creatinine 0.4, improved AST 23, ALT 13, alk phos 154. Currently awaiting PT/OT evaluation and recommendations. Will continue current inpatient interventions with IV antibiotic therapy, IV fluids, and medical management. Greatly appreciate case management and coordination with discharge planning, currently no plan until PT/OT evaluation completed. Vitals/I&O/Wt Last Vital Signs Temp 98.1 F 03/30/25 04:00 Pulse 78 03/30/25 07:00 Resp 17 03/30/25 04:00 BP 116/66 03/30/25 04:00 Pulse Ox 96 03/30/25 04:00 O2 Del Method Room Air 03/30/25 04:00 O2 Flow Rate 2 03/29/25 08:43 03/29/25 03/30/25 03/30/25 22:59 06:59 14:59 Intake Total 120 / 120 2108.333 / 2228.333 Output Total 1160 / 1160 Balance -1040 / -1040 2108.333 / 1068.333 Weight last 48 hrs Weight 60.895 kg Weight 66.996 kg Weight 66.996 kg Weight 65.771 kg Weight 65.771 kg Physical Exam 2 Narrative: Pleasantly confused 74-year-old male laying in bed pulling, pleasantly confused, in NAD. Const: EXAM LIMITATIONS: altered mental status HENMT: COMMON NORMALS: normocephalic and Normal external nose present HEAD & SCALP: normocephalic NOSE: Normal external nose present MOUTH: moist mucous membranes abnormal Details: parched Eye: COMMON NORMALS: Equal, round and reactive pupils present PUPIL: Yes Equal, round and reactive pupils present Resp: COMMON NORMALS: normal respiratory effort, No retractions and clear to auscultation bilaterally AUSCULTATION: clear to auscultation bilaterally Cardio: COMMON NORMALS: regular rate, S1 normal heart sound present and S2 normal heart sound present RATE: regular rate HEART SOUNDS: S1 normal heart sound present and S2 normal heart sound present GI: COMMON NORMALS: Normal to inspection, nondistended, normoactive bowel sounds present Extremity: COMMON NORMALS: full ROM OTHER: Muscle atrophy to all extremities Neuro: OTHER: Orientated to person only. Psych: MEMORY/COGNITION: Yes cognition grossly impaired JUDGEMENT: q uestionable Skin: COMMON NORMALS: no rashes or lesions noted GENERAL SKIN EXAM: no rashes or lesions noted Urinary Catheter Management: Guillen Latex Free: Cath Placed During This Visit: yes Reason for Continuing Indwelling Catheter: Acute Urinary Retention or Obstruction Urinary Catheter Date of Insertion: 03/29/25 Urinary Catheter Time of Insertion: 15:46 Data 03/30/25 04:37 03/30/25 04:37 Micro: Microbiology 03/29/25 10:48 Blood Culture - Preliminary Blood SPECIMEN COLLECTED 03/29/25 10:23 Blood Culture - Preliminary Blood SPECIMEN COLLECTED A&P Assessment and plan 1. Acute UTI: 2. Confusion: 3. Parkinson disease: 4. Urinary retention: 5. Type 2 diabetes mellitus: 6. Neuropathy: 7. Chronic GERD: 8. Falls: 9. Dehydration: Plan: Complicated UTI, POA Chronic urinary retention BPH - Admitting WBC 12.68, positive urinalysis, WBC 16.43 - cath the patient at home - Guillen catheter placed while in the hospital - Continue IV Rocephin 1 g every 24 hour - Urine culture with gram-negative rods -Blood culture x 2 NGTD - Outpatient management with urology - Continue Flomax Volume Depletion Poor oral intake food/fluids - Given 1L NS bolus in ER - Continue gentle IV fluid hydration with NS at 75 mL/h Falls Generalized Weakness - 3 falls in the last week - CT C-spine with no evidence of acute fracture or dislocation - Fall precautions - Greatly appreciate physical therapy and Occupational Therapy evaluation and recommendations Parkinson's Dementia Increasing confusion - CT head: No evidence of intracranial hemorrhage or mass effect, no acute intracranial findings. - Continue carbidopa levodopa, amantadine, seroquel, trazodone DM-II Diabetic Neuropathy - Carb controlled diet - Continue gabapentin - Low-dose SSI, POC GERD - Continue PPI Chronic Diarrhea Recent pancreatitis Elevated LFTs - Liver U/s: 1. Coarse hepatic echotexture suspicious for parenchymal disease. Recommend correlation liver function tests. 2. Prominent Common bile duct measures 10 mm likely physiologic postcholecystectomy. This can be further evaluated with MRCP if laboratory concern. 3. Mild RIGHT hydronephrosis versus prominent RIGHT renal pelvis.. 4. No other acute findings - AST 78, ALT 88, ALK phosphate 198 on admission, Current AST 23, ALT 13, alk phos 154 - Continue supportive measures - PRN Loperamide - Probiotics VTE PPX: SCD's GI PPX: PPI Code Status: Full Code PDMP PDMP Reviewed: Not Reviewed Attestations 2 Medical Necessity Statement*: Continued inpatient treatment greater than 2 midnights secondary to complicated UTI, altered mental status, and medical complexity necessitating IV antibiotic therapy, IV fluid hydration, PT/OT evaluation interventions with potential SNF placement. Coding Level of Care Code 07053 Diagnoses Acute UTI N39.0 Confusion R41.0 Parkinson disease G20.A1 Urinary retention R33.9 Type 2 diabetes mellitus E11.9 Neuropathy G62.9 Chronic GERD K21.9 Falls R29.6 Dehydration E86.0
--- NOTE | 2025-03-30 09:26 | PC.SOCIAL ---
IMM Update pg 2 of IMM Updated and reviewed w/ patient. Copy provided and copy dated, initialed and placed in chart.
[2025-03-30] MEDS: MELATONIN 3 MG TABLET PO (16:09)
[2025-03-31] VITALS (8 sets, daily range): BP systolic 88–127; BP diastolic 53–73; PULSE 67–93; RESP 16–18; TEMP 36.4–36.7; O2SAT 90–98
[2025-03-31] MEDS: cefTRIAXone 1,000 mg SDV 1000 MG IVP (05:18)
[2025-03-31] MEDS: lactobacillus 1 Tablet 1 TAB PO ×2 (06:27→16:44)
[2025-03-31] MEDS: carbidopa-levodopa 25-100mg Tablet 1 EACH PO ×5 (06:28→20:46)
[2025-03-31 08:39] LABS: Hematocrit 39.7 % (37-53); Hemoglobin 13.20 g/dL (11.27-16.99); Mean Corpuscular HGB Conc 33.2 g/dL (30-55); Mean Corpuscular Hemoglobin 30.3 pg (27-33); Mean Corpuscular Volume 91.1 fl (82-101); Nucleated Red Blood Cells % 0 %; Platelet Count 197 10^3/cmm (157-399); Red Blood Count 4.36 10^6/uL (3.85-5.65); White Blood Count 13.89 10^3/uL (3.29-11.43)
[2025-03-31 09:04] LABS: Alanine Aminotransferase < 5 U/L (0-41); Albumin Level 3.1 g/dL (3.5-5.2); Alkaline Phosphatase 124 U/L (40-130); Anion Gap 13.1 (5-19); Aspartate Amino Transferase 10 U/L (0-40); Blood Urea Nitrogen 9 mg/dL (8-23); Calcium 8.2 mg/dL (8.5-10.5); Carbon Dioxide 22 mmol/L (22-29); Chloride 109 mmol/L (98-107); Globulin 2.8 g/dL (1.3-4.6); Glucose 95 mg/dL (65-115); Magnesium 2.0 mg/dL (1.7-2.3); Osmolality Calculated 290 mOsm/kg (285-295); Potassium 3.1 mmol/L (3.5-5.1); Sodium 141 mmol/L (136-145); Total Protein 5.9 g/dL (6.6-8.7)
--- NOTE | 2025-03-31 09:52 | P.PN_ITS ---
Subjective 2 Subjective: Patient is a very pleasant 74-year-old male seen and examined at bedside on hospital rounds today. Patient laying in bed with complaints of mild head pain, states no other concerns or complaints at this time however patient is only orientated to self. Review of vital signs, low blood pressure this morning 88/53, room air saturation greater than 90%. Review of labs improving WBC 13.89, mildly low potassium 3.1. We will replenish potassium, continue IV antibiotics pending urine culture report, and continue IV fluid hydration. Will work with case management and patient's spouse on discharge planning, most likely home with home health as he is unable to participate to go to inpatient rehab. Vitals/I&O/Wt Last Vital Signs Temp 97.7 F 03/31/25 07:45 Pulse 76 03/31/25 08:27 Resp 18 03/31/25 07:45 BP 88/53 03/31/25 07:45 Pulse Ox 93 03/31/25 08:27 O2 Del Method Room Air 03/31/25 08:27 O2 Flow Rate 2 03/30/25 12:00 03/30/25 03/31/25 03/31/25 22:59 06:59 14:59 Intake Total 1120 / 1120 966.667 / 2086.667 Output Total 500 / 900 600 / 1500 Balance 620 / 220 366.667 / 586.667 Weight last 48 hrs Weight 61.689 kg Weight 60.895 kg Weight 66.996 kg Weight 66.996 kg Weight 65.771 kg Physical Exam 2 Narrative: Pleasantly confused 74-year-old male laying in bed, pleasantly confused, in NAD. Const: EXAM LIMITATIONS: altered mental status HENMT: COMMON NORMALS: normocephalic and Normal external nose present HEAD & SCALP: normocephalic NOSE: Normal external nose present MOUTH: moist mucous membranes abnormal Details: parched Eye: COMMON NORMALS: Equal, round and reactive pupils present PUPIL: Yes Equal, round and reactive pupils present Resp: COMMON NORMALS: normal respiratory effort, No retractions and clear to auscultation bilaterally AUSCULTATION: clear to auscultation bilaterally Cardio: COMMON NORMALS: regular rate, S1 normal heart sound present and S2 normal heart sound present RATE: regular rate HEART SOUNDS: S1 normal heart sound present and S2 normal heart sound present GI: COMMON NORMALS: Normal to inspection, nondistended, normoactive bowel sounds present Extremity: COMMON NORMALS: full ROM OTHER: Muscle atrophy to all extremities Neuro: OTHER: Orientated to person only. Psych: MEMORY/COGNITION: Yes cognition grossly impaired JUDGEMENT: q uestionable Skin: COMMON NORMALS: no rashes or lesions noted GENERAL SKIN EXAM: no rashes or lesions noted Urinary Catheter Management: Guillen Latex Free: Cath Placed During This Visit: yes Reason for Continuing Indwelling Catheter: Acute Urinary Retention or Obstruction Urinary Catheter Date of Insertion: 03/29/25 Urinary Catheter Time of Insertion: 15:46 Data 03/31/25 08:16 03/31/25 08:16 Micro: Microbiology 03/29/25 10:48 Blood Culture - Preliminary Blood NEGATIVE TO DATE 03/29/25 10:23 Blood Culture - Preliminary Blood NEGATIVE TO DATE 03/29/25 09:13 Urine Culture - Preliminary Urine,Clean Catch Gram Negative Rods A&P Assessment and plan 1. Acute UTI: 2. Confusion: 3. Parkinson disease: 4. Urinary retention: 5. Type 2 diabetes mellitus: 6. Neuropathy: 7. Chronic GERD: 8. Falls: 9. Dehydration: Plan: Complicated UTI, POA Chronic urinary retention BPH - Admitting WBC 12.68, positive urinalysis, WBC 16.43--<13.89 - caths the patient at home - Guillen catheter placed while in the hospital - Continue IV Rocephin 1 g every 24 hour - Urine culture with gram-negative rods - pending finalization and sensitivities - Blood culture x 2 NGTD - Outpatient management with urology - Continue Flomax Volume Depletion Poor oral intake food/fluids - Given 1L NS bolus in ER - Continue gentle IV fluid hydration with NS at 75 mL/h Falls Generalized Weakness - 3 falls in the last week - CT C-spine with no evidence of acute fracture or dislocation - Fall precautions - Greatly appreciate physical therapy and Occupational Therapy evaluation and recommendations Parkinson's Dementia Increasing confusion - CT head: No evidence of intracranial hemorrhage or mass effect, no acute intracranial findings. - Continue carbidopa levodopa, amantadine, seroquel, trazodone DM-II Diabetic Neuropathy - Carb controlled diet - Continue gabapentin - Low-dose SSI, POC GERD - Continue PPI Chronic Diarrhea Recent pancreatitis Elevated LFTs - Liver U/s: 1. Coarse hepatic echotexture suspicious for parenchymal disease. Recommend correlation liver function tests. 2. Prominent Common bile duct measures 10 mm likely physiologic postcholecystectomy. This can be further evaluated with MRCP if laboratory concern. 3. Mild RIGHT hydronephrosis versus prominent RIGHT renal pelvis.. 4. No other acute findings - AST 78, ALT 88, ALK phosphate 198 on admission, Current AST 23, ALT 13, alk phos 154 - Continue supportive measures - PRN Loperamide - Probiotics VTE PPX: SCD's GI PPX: PPI Code Status: Full Code PDMP PDMP Reviewed: Not Reviewed Attestations 2 Medical Necessity Statement*: Continued inpatient treatment greater than 2 midnights secondary to complicated UTI, altered mental status, and medical complexity necessitating IV antibiotic therapy, IV fluid hydration, PT/OT evaluation interventions with potential SNF placement. Coding Level of Care Code 93572 Diagnoses Acute UTI N39.0 Confusion R41.0 Parkinson disease G20.A1 Urinary retention R33.9 Type 2 diabetes mellitus E11.9 Neuropathy G62.9 Chronic GERD K21.9 Falls R29.6 Dehydration E86.0
--- NOTE | 2025-03-31 11:54 | PC.CHAP ---
Pastoral Care Encounter/Spiritual Assessment Type of Contact [] Declined nutrition director visit [] Patient/Family/Request visit [] Outpatient visit [] Follow-up visit [] Physician referral [] Code/Alert [] Routine visit [] Staff referral [] Actively dying [x] Patient sleeping [] Family support [] [] Out of room [] Palliative care [] [] Receiving care in room [] Pre-surgical visit [] Trauma [] Long length of stay [] ICU visit [] Other: Relational/Emotional Strength [] Patient feels connected with others/family/visitors/staff [] Distress [] Loneliness/isolation [] Abandonment Spirituality of Patient [] Person of Laly [] Attends Tenriism of their Laly [] Believes in Prayer [] Reads Bible or Jainism materials [] There are Spiritual issues to be addressed Topographical Drafter Interventions [] Prayer [] Active listening [] Non-anxious presence [] Spiritual/emotional support [] Crisis/trauma care [] Spiritual counseling [] Bereavement support [] Provided bereavement packet [] Provided Bible/devotional materials [] Provided toy/stuffed animal, coloring book to patient or family member [] Provided Communion [] Anointing/Parachute [] Salvation [] Completed spiritual assessment [] Other: Impact on Illness or Injury [] Angry [] Fearful [] Anxious [] Often cries [] Exhaustion [] Unable to work [] Unable to attend cheondoism [] Unable to walk/stand [] Unable to read [] Unable to drive [] Unable to eat/drink [] Unable to sleep [] Unable to be with family [] Patient intubated [] Other: Summary Time spent with patient
[2025-03-31] MEDS: MELATONIN 3 MG TABLET PO (16:44)
[2025-04-01] VITALS: BP 154/91; PULSE 82; RESP 18; TEMP 36.4; O2SAT 97
[2025-04-01] MEDS: haloperidol inj 5 mg/mL INJ 1 mL IM (00:42)
[2025-04-01 04:00] VITALS: BP 136/79; PULSE 76; RESP 18; TEMP 36.6; O2SAT 97
[2025-04-01 04:33] LABS: Hematocrit 47.2 % (37-53); Hemoglobin 15.10 g/dL (11.27-16.99); Mean Corpuscular HGB Conc 32.0 g/dL (30-55); Mean Corpuscular Hemoglobin 30.9 pg (27-33); Mean Corpuscular Volume 96.7 fl (82-101); Nucleated Red Blood Cells % 0 %; Platelet Count 184 10^3/cmm (157-399); Red Blood Count 4.88 10^6/uL (3.85-5.65); White Blood Count 9.76 10^3/uL (3.29-11.43)
[2025-04-01 05:00] LABS: Alanine Aminotransferase 6 U/L (0-41); Albumin Level 3.7 g/dL (3.5-5.2); Alkaline Phosphatase 126 U/L (40-130); Blood Urea Nitrogen 6 mg/dL (8-23); Calcium 8.7 mg/dL (8.5-10.5); Carbon Dioxide 22 mmol/L (22-29); Chloride 108 mmol/L (98-107); Globulin 2.2 g/dL (1.3-4.6); Glucose 97 mg/dL (65-115); Magnesium 2.2 mg/dL (1.7-2.3); Osmolality Calculated 294 mOsm/kg (285-295); Sodium 143 mmol/L (136-145); Total Protein 5.9 g/dL (6.6-8.7)
[2025-04-01 05:05] LABS: Anion Gap 16.7 (5-19); Aspartate Amino Transferase 16 U/L (0-40); Potassium 3.7 mmol/L (3.5-5.1)
[2025-04-01 06:00] VITALS: BMI 20.7
[2025-04-01 07:12] VITALS: PULSE 81
--- NOTE | 2025-04-01 07:29 | PM.DCS ---
Discharge Providers Date of Admission: 03/29/25 12:39 Date of Discharge: March 31, 2025 Attending Provider at Admission: José Antonio Carrasco MD Attending Provider at Discharge: Christin Stafford NP Primary Care Provider: Saúl Su MD Diagnoses at Discharge Discharge Diagnosis 1. Acute UTI: 2. Confusion: 3. Parkinson disease: 4. Urinary retention: 5. Type 2 diabetes mellitus with hypoglycemia without coma, without long-term current use of insulin: 6. Neuropathy: 7. Chronic GERD: 8. Falls: 9. Dehydration: Reason for Visit Reason for Visit: fall Brief History: Admission: Kali Castro Jr is a 74 year old male with a past medical history of dementia, Parkinson's, BPH, chronic diarrhea, GERD, chronic urinary tension with need for self-catheterization who presented to the ER status post falls with increasing weakness over the last few days. Patient fell hit hit his head, fell 2 other times in the last week. CT negative for acute process. Patient's baseline orientation is to person only, but spouse states that he has had increasing confusion over the last week. Urinalysis positive for infection, urine culture and blood culture sent. Patient also had bout of pancreatitis 3 weeks ago, primary care provider reduced dosing of Seroquel thinking that this could have exacerbated this. Patient has had poor oral intake of food and fluids over the last few days, very volume depleted at time of admission. Patient is unable to really participate in review of systems, was able to state that he did not have any chest pain or abdominal pain. Patient does endorse head pain but states that it is all over not localized. Patient's spouse is a sole caregiver and states the patient has had increasingly worsening dementia over the last month. Due to complexity of presentation and infection patient is admitted inpatient, will order IV antibiotic therapy and fluids, and request physical therapy and Occupational Therapy to evaluate this patient as he may need SNF level of care. All questions and concerns addressed with the patient's spouse at time of admission. Admitting WBC 12.68, BUN 26, AST 78, ALT 88, urinalysis with dark yellow cloudy urine 1+ ketones positive nitrates, WBC 21-50, 4+ bacteria pending urine culture and blood culture x 2. Admitting vital signs of blood pressure 126/81 and room air saturation greater than 99%. Afebrile 98.0 ?F. Hospital Course Hospital Course Complicated UTI, POA Chronic urinary retention BPH - Admitting WBC 12.68, positive urinalysis, WBC 16.43 - cath the patient at home - Guillen catheter placed while in the hospital - Continue IV Rocephin 1 g every 24 hour - Urine culture with gram-negative rods -Blood culture x 2 NGTD - Outpatient management with urology - Continue Flomax Volume Depletion Poor oral intake food/fluids - Given 1L NS bolus in ER - Continue gentle IV fluid hydration with NS at 75 mL/h Falls Generalized Weakness - 3 falls in the last week - CT C-spine with no evidence of acute fracture or dislocation - Fall precautions - Greatly appreciate physical therapy and Occupational Therapy evaluation and recommendations - Recommendations for home with Home Health Parkinson's Dementia Increasing confusion - CT head: No evidence of intracranial hemorrhage or mass effect, no acute intracranial findings. - Continue carbidopa levodopa, amantadine, seroquel, trazodone DM-II Diabetic Neuropathy - Carb controlled diet - Continue gabapentin - Low-dose SSI, POC GERD - Continue PPI Chronic Diarrhea Recent pancreatitis Elevated LFTs - Liver U/s: 1. Coarse hepatic echotexture suspicious for parenchymal disease. Recommend correlation liver function tests. 2. Prominent Common bile duct measures 10 mm likely physiologic postcholecystectomy. This can be further evaluated with MRCP if laboratory concern. 3. Mild RIGHT hydronephrosis versus prominent RIGHT renal pelvis.. 4. No other acute findings - AST 78, ALT 88, ALK phosphate 198 on admission, Current AST 23, ALT 13, alk phos 154 - Continue supportive measures - PRN Loperamide - Probiotics Patient is very well-hydrated, no complaints at discharge. Orientated x 1, this is baseline, due to poor participation in therapy did not qualify for inp rehab - states she will take him home. Greatly appreciate case management coordination in discharge planning for hospice. Continues oral antibiotics based on sensitivities for e-coli UTI. Guillen to remain in at discharge, managed at home by spouse and hospice. All questions and concerns addressed proir to discharge. Physical Exam Narrative: Pleasantly confused 74-year-old male laying in bed, pleasantly confused, in NAD. Const: EXAM LIMITATIONS: altered mental status HENMT: COMMON NORMALS: normocephalic and Normal external nose present HEAD & SCALP: normocephalic NOSE: Normal external nose present MOUTH: moist mucous membranes abnormal Details: parched Eye: COMMON NORMALS: Equal, round and reactive pupils present PUPIL: Yes Equal, round and reactive pupils present Resp: COMMON NORMALS: normal respiratory effort, No retractions and clear to auscultation bilaterally AUSCULTATION: clear to auscultation bilaterally Cardio: COMMON NORMALS: regular rate, S1 normal heart sound present and S2 normal heart sound present RATE: regular rate HEART SOUNDS: S1 normal heart sound present and S2 normal heart sound present GI: COMMON NORMALS: Normal to inspection, nondistended, normoactive bowel sounds present Extremity: COMMON NORMALS: full ROM OTHER: Muscle atrophy to all extremities Neuro: OTHER: Orientated to person only. Psych: MEMORY/COGNITION: Yes cognition grossly impaired JUDGEMENT: questionable Skin: COMMON NORMALS: no rashes or lesions noted GENERAL SKIN EXAM: no rashes or lesions noted Urinary Catheter Management: Guillen Latex Free: Cath Placed During This Visit: yes Reason for Continuing Indwelling Catheter: Acute Urinary Retention or Obstruction Urinary Catheter Date of Insertion: 03/29/25 Urinary Catheter Time of Insertion: 15:46 Discharge Data Studies Completed and Pending Completed Studies During Hospitalization Category Date Time Status CT cervical spin wo con* [id number] Stat Cat Scan 03/29/25 08:[address] head wo con* [id number] Stat Cat Scan 03/29/25 08:54 Completed US liver [id number] Stat Ultrasound 03/29/25 10:11 Completed Pending at discharge Category Date Time Status Blood Culture Stat Lab 03/29/25 10:48 Results Complete Blood Count w/Auto AM LABS Lab 04/01/25 04:00 Ordered Comprehensive Metabolic Panel AM LABS Lab 04/01/25 04:00 Ordered Magnesium AM LABS Lab 04/01/25 04:00 Ordered Urine Culture Stat Lab 03/29/25 09:13 Results Radiology Impressions Cervical Spine CT 03/29/25 08:54 IMPRESSION: 1. No evidence of acute fracture or dislocation. 2. A few hazy groundglass opacities in the RIGHT lung apex Head CT 03/29/25 08:54 IMPRESSION: 1. No evidence of intracranial hemorrhage or mass effect. 2. No acute intracranial findings. Liver Ultrasound 03/29/25 10:11 IMPRESSION: Limited study due to bowel gas 1. Coarse hepatic echotexture suspicious for parenchymal disease. Recommend correlation liver function tests. 2. Prominent Common bile duct measures 10 mm likely physiologic postcholecystectomy. This can be further evaluated with MRCP if laboratory concern 3. Mild RIGHT hydronephrosis versus prominent RIGHT renal pelvis. 4. No other acute findings Laboratory Results WBC 13.89 10^3/uL (3.29-11.43) H 03/31/25 08:16 RBC 4.36 10^6/uL (3.85-5.65) 03/31/25 08:16 Hgb 13.20 g/dL (11.27-16.99) 03/31/25 08:16 Hct 39.7 % (37-53) 03/31/25 08:16 MCV 91.1 fl (82-101) 03/31/25 08:16 MCH 30.3 pg (27-33) 03/31/25 08:16 MCHC 33.2 g/dL (30-55) D 03/31/25 08:16 RDW 14.8 % (12.1-15.1) 03/31/25 08:16 Plt Count 197 10^3/cmm (157-399) 03/31/25 08:16 MPV 10.0 fL (7.4-10.4) 03/31/25 08:16 Neut % (Auto) 79.5 % 03/31/25 08:16 Lymph % (Auto) 12.6 % 03/31/25 08:16 [place] % (Auto) 6.3 % 03/31/25 08:16 Eos % (Auto) 0.9 % 03/31/25 08:16 Baso % (Auto) 0.3 % 03/31/25 08:16 Neut # (Auto) 11.06 10^3/uL (1.8-7.7) H 03/31/25 08:16 Lymph # (Auto) 1.8 10^3/uL (0.8-4.8) 03/31/25 08:16 [place] # (Auto) 0.9 10^3/uL (0.2-0.9) 03/31/25 08:16 Eos # (Auto) 0.1 10^3/uL (0.0-0.8) 03/31/25 08:16 Baso # (Auto) 0.0 10^3/uL (0.0-0.1) 03/31/25 08:16 Nucleated RBC % (auto) 0 % 03/31/25 08:16 Nucleated RBCs # 0.0 /100WBC 03/31/25 08:16 Sodium 141 mmol/L (136-145) 03/31/25 08:16 Potassium 3.1 mmol/L (3.5-5.1) L 03/31/25 08:16 Chloride 109 mmol/L (98-107) H 03/31/25 08:16 Carbon Dioxide 22 mmol/L (22-29) 03/31/25 08:16 Anion Gap 13.1 (5-19) 03/31/25 08:16 BUN 9 mg/dL (8-23) 03/31/25 08:16 Creatinine 0.4 mg/dL (0.7-1.2) L 03/31/25 08:16 GFR Calculation Not Reportable 03/31/25 08:16 Glucose 95 mg/dL (65-115) 03/31/25 08:16 POC Glucose 85 mg/dL (70-110) 03/31/25 05:40 Calculated Osmolality 290 mOsm/kg (285-295) 03/31/25 08:16 Lactic Acid 1.5 mmol/L (0.5-2.2) 03/29/25 08:45 Calcium 8.2 mg/dL (8.5-10.5) L 03/31/25 08:16 Magnesium 2.0 mg/dL (1.7-2.3) 03/31/25 08:16 Total Bilirubin 0.5 mg/dL (0.15-1.2) 03/31/25 08:16 AST 10 U/L (0-40) 03/31/25 08:16 ALT < 5 U/L (0-41) 03/31/25 08:16 Alkaline Phosphatase 124 U/L (40-130) 03/31/25 08:16 Total Protein 5.9 g/dL (6.6-8.7) L 03/31/25 08:16 Albumin 3.1 g/dL (3.5-5.2) L 03/31/25 08:16 Globulin 2.8 g/dL (1.3-4.6) 03/31/25 08:16 Lipase 46 U/L (13-60) 03/29/25 08:45 Urine Color Dark yellow (Yellow) A 03/29/25 09:13 Urine Appearance Cloudy (CLEAR) A 03/29/25 09:13 Urine pH 6.0 (5-7) 03/29/25 09:13 Ur Specific [place] 1.025 (1.005-1.030) 03/29/25 09:13 Urine Protein Trace (Negative) A 03/29/25 09:13 Urine Glucose (UA) Negative (Normal) 03/29/25 09:13 Urine Ketones 1+ (Negative) H 03/29/25 09:13 Urine Blood Negative (Negative) 03/29/25 09:13 Urine Nitrate Positive (Negative) A 03/29/25 09:13 Urine Bilirubin Negative (Negative) 03/29/25 09:13 Urine Urobilinogen 1.0 mg/dL (Negative) 03/29/25 09:13 Ur Leukocyte Esterase 2+ (Negative) A 03/29/25 09:13 Urine RBC 0-2 /hpf (0-2) 03/29/25 09:13 Urine WBC 21-50 /hpf (0-5) H 03/29/25 09:13 Ur Squamous Epith Cells 0-5 /hpf (0-5) 03/29/25 09:13 Amorphous Sediment Not Reportable 03/29/25 09:13 Urine Bacteria 4+ /hpf (NONE) H 03/29/25 09:13 Hyaline Casts 3.30 /lpf 03/29/25 09:13 Ur Oval Fat Bodies 1+ /hpf 03/29/25 09:13 Vitals Last Vital Signs Temp 97.7 F 03/31/25 07:45 Pulse 76 03/31/25 08:27 Resp 18 03/31/25 07:45 BP 88/53 03/31/25 07:45 Pulse Ox 93 03/31/25 08:27 O2 Del Method Room Air 03/31/25 08:27 O2 Flow Rate 2 03/30/25 12:00 Discharge Plan Discharge Patient Disposition: Hospice - Home Condition: Stable Prescriptions: New Lactobacillus acidoph-L.bulgar 1 million cell Tablet 1 tab PO BID 30 Days Qty: 60 0RF nitrofurantoin macrocrystal 100 mg capsule 100 mg PO BID 5 Days Qty: 10 0RF Rx Instructions: must administer with a meal/food Continued carbidopa-levodopa 25-100 mg tablet 1 tab PO 5XD melatonin 5 mg capsule 10 mg PO QPM amantadine HCl 100 mg capsule 100 mg PO BID quetiapine 25 mg tablet 25 mg PO BEDTIME Rx Instructions: along with 50mg to=75mg total loperamide [Imodium A-D] 2 mg tablet 2 mg PO Q6H PRN (Reason: loose stool) Qty: 20 0RF (DME) quinn balance brace See Rx Instructions .Route .MEDSUPPLY Qty: 1 0RF Rx Instructions: As directed gabapentin 600 mg tablet 600 mg PO BID 90 Days Qty: 180 1RF methenamine hippurate 1 gram tablet See Rx Instructions .ROUTE .COMPLEX Qty: 180 3RF Dose Instruction: TAKE ONE TABLET BY MOUTH TWICE A DAY ALONG WITH THE 1000MG OF VITAMIN C. Rx Instructions: TAKE ONE TABLET BY MOUTH TWICE A DAY ALONG WITH THE 1000MG OF VITAMIN C. clonazepam 0.5 mg tablet 0.5 mg PO BID trazodone 100 mg tablet 100 mg PO BEDTIME quetiapine 50 mg tablet 50 mg PO BEDTIME Rx Instructions: along with 25mg to= 75mg total omeprazole 40 mg capsule,delayed release(DR/EC) 40 mg PO DAILY tamsulosin 0.4 mg capsule 0.4 mg PO BID finasteride 5 mg tablet 5 mg PO DAILY Discharge Order = DC NOW: Discharge Order (Routine); Ordered 04/01/25 Ordered By: Christin Stafford Referrals: Saúl Su MD [Primary Care Provider, [facility]] - 1-3 days Referral Note: You will need to call your primary care provider Wednesday to make a hospital discharge follow up in 1-3 days. Discharge Diet: Usual diet Discharge Activity: Limit activity as instructed Patient Instructions: Nitrofurantoin (By mouth), Opioid Safety, Patient Portal & Maye Instructions Activity Restrictions/Additional Instructions: Fall precautions, home safety precautions with elopement risk. Discharge Attestations Time Spent in Discharge Care*: greater than 30 min Quality Metrics Clinical Quality Measures [ No reported AMI, CVA or VTE this stay] Coding Level of Care Code 45917 Diagnoses Acute UTI N39.0 Confusion R41.0 Parkinson disease G20 Urinary retention R33.9 Type 2 diabetes mellitus with hypoglycemia without coma, without long-term current use of insulin E11.649 Diabetes mellitus complication detail: without coma Diabetes mellitus complication status: with hypoglycemia Diabetes mellitus prison insulin use: without termite inspector use Neuropathy G62.9 Chronic GERD K21.9 Falls R29.6 Dehydration E86.0
[2025-04-01 07:31] VITALS: BP 122/73; PULSE 89; RESP 18; TEMP 36.5; O2SAT 98
[2025-04-01] MEDS: carbidopa-levodopa 25-100mg Tablet 1 EACH PO (08:13)
[2025-04-01 11:39] VITALS: BP 131/67; PULSE 96; RESP 19; TEMP 36.5; O2SAT 95
[2025-04-01 13:29] VITALS: BP 131/67; PULSE 96; RESP 19; TEMP 36.5; O2SAT 95
== END 2025-04-01 13:32 | disposition hospice, home (50) | DRG 690 ==
LOC: ER 11:20 → MEDSURG 12:39
PROVIDERS: Admitting Provider Family Medicine; Emergency Provider Family Medicine; PCP Family Medicine; Visit Provider Registered Nurse
DX: N39.0 Urinary tract infection, site not specified (principal); G20.A1 Parkinson's disease without dyskinesia, without mention of fluctuations; F02.80 Dementia in other diseases classified elsewhere, unspecified severity, without behavioral disturbance, psychotic disturbance, mood disturbance, and anxiety; N40.1 Benign prostatic hyperplasia with lower urinary tract symptoms; R33.8 Other retention of urine; E11.649 Type 2 diabetes mellitus with hypoglycemia without coma; E11.40 Type 2 diabetes mellitus with diabetic neuropathy, unspecified; K21.9 Gastro-esophageal reflux disease without esophagitis; R29.6 Repeated falls; E86.0 Dehydration; K52.9 Noninfective gastroenteritis and colitis, unspecified; B96.20 Unspecified Escherichia coli [E. coli] as the cause of diseases classified elsewhere; E78.00 Pure hypercholesterolemia, unspecified
CPT/HCPCS: 36415; 36416; 51702; 70450; 72125; 76705; 80053; 81001; 82962; 83605; 83690; 83735; 85025; 87040; 87077; 87086; 87186; 93005; 96361; 96372; 96374; 97110; 97116; 97161; 97165; 97530; 99285; J0696; J1630; J1815; J7030; J9999